=== PATIENT | female | born 1945 | race Caucasian/White ===

== ENCOUNTER 2020-11-09 08:35 | Outpatient (REF) | payer MEDICARE, SELFPAY ==
[2020-11-09 09:58] LABS: Alanine Aminotransferase 24 U/L (0-31); Albumin Level 4.4 g/dL (3.5-5.0); Alkaline Phosphatase 83 U/L (39-117); Aspartate Amino Transferase 23 U/L (5-31); Bilirubin Direct 0.4 mg/dL (0.0-0.5); Bilirubin Total 0.8 mg/dL (0.0-1.0); Cholesterol 125 mg/dL; HDL Cholesterol 61 mg/dL; LDL Cholesterol Calculated 53 mg/dl; Triglycerides 57 mg/dL
[2020-11-09 10:12] LABS: Reflex LDLD? No
[2020-11-09 10:19] LABS: Thyroid Stimulating Hormone 1.26 uIU/mL (0.32-4.0)
== END 2020-11-09 08:36 | disposition home or self-care (01) ==
LOC: HO.LAB 08:35
PROVIDERS: Visit Provider Internal Medicine
DX: E05.00 Thyrotoxicosis with diffuse goiter without thyrotoxic crisis or storm (principal); I25.10 Atherosclerotic heart disease of native coronary artery without angina pectoris
CPT/HCPCS: 36415; 80061; 80076; 84443

== ENCOUNTER 2020-12-08 08:49 | Outpatient (REF) | payer MEDICARE, BC, SELFPAY ==
--- NOTE | 2020-12-14 11:55 | MHC.AU.P13 ---
Adult Audiological Evaluation Date of Visit: 12/08/20 Psychiatric Security Nurse Used: Not Applicable Reason for Appointment: Audiologic re-evaluation due to perceived change in hearing ability. 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 Sales And Storage Manager: O[employer]on Model: Dual W RITE Battery Size: 10 Warranty: Dispensed By: [facility] Date of Fittin01/24/2010 Otoscopy: Right Ear: Unremarkable Left Ear: Unremarkable Tympanometry: Tympanometry performed due to: Right Ear: Not performed at today's visit Left Ear: Not performed at today's visit Hearing Evaluation: Transducer(s) Used: Insert Earphones Method: Conventional Audiometry Stimuli Used: Pure Tones Right Ear: Description of Hearing: Moderate to severe sensorineural hearing loss Left Ear: Description of Hearing: Moderate to severe sensorineural hearing loss Speech Recognition Threshold (SRT): Method Used: Monitored Live Voice Stimuli Used: Spondee Words Right Ear: 50 dB HL Left Ear: 55 dB HL Word Discrimination: Method: Monitored Live Voice Word Lists Used: NU-6 Right Ear: 92% at 80 dB HL Left Ear: 88% at 85 dB HL QuickSIN: Binaural Quick SIN Test score is 2 dB SNR Loss suggesting Marielle does not experience any more difficulty understanding speech in noise than expected Comparison: Compared to most recent evaluation: Compared to January 2019, the low frequency thresholds have decreased 5-10 dB HL Recommendations: Audiological re-evaluation in one year. Trial with amplification is recommended. Medical clearance from a physician is required before fitting. Hearing Aid Fitting will be scheduled when all materials arrive. See Hearing Aid Evaluation report for more information. Diagnosis: Primary Diagnosis: H90.3 Bilateral Sensorineural Hearing Loss Services Performed: Comprehensive Audiological Evaluation (CPT 86243) Signature: Provider: Willa Payton, [facility]
--- NOTE | 2020-12-14 12:08 | MHC.AU.MED ---
Medical Clearance for Hearing Instrumentation Date: 12/14/20 Patient Name: Marielle Valdivia Date of : 1945 Primary Care Provider: Referring Provider: William Najera MD We have seen your patient on 12/08/20 and have determined that they are a candidate for amplification (See accompanying report). Specifically, they would benefit from: Hearing aid use in both ears There is a statute that addresses Medical Evaluation Requirements prior to fitting a patient with a hearing aid. According to [place] statute 265 CMR:6.03(1), (a) General. Except as provided in 265 CMR 6.03(1)(b), a editor continuity and script shall not sell a hearing aid unless the prospective user has presented to the editor continuity and script a written statement signed by a licensed physician that states that the patient's hearing loss has been medically evaluated and the patient may be considered a candidate for a hearing aid. The medical evaluation must have taken place within the preceding six months. Please note: Due to the [place] Statute referenced above, we cannot accept a signature other than that of a licensed physician. EQUALIZING SAW OPERATOR and PA signatures cannot be accepted. I am in agreement with the above recommendation. There is no medical contraindication for hearing instrumentation. Physician Signature Date Physician Name (Printed)
== END 2020-12-08 08:50 | disposition home or self-care (01) ==
LOC: HO.SH 08:49
PROVIDERS: Visit Provider Internal Medicine
DX: H90.3 Sensorineural hearing loss, bilateral (principal)
CPT/HCPCS: 92557

== ENCOUNTER 2021-01-31 10:07 | Outpatient (REF) | payer MEDICARE, BC, SELFPAY ==
--- NOTE | ~2021-01-31 | FL_ITS ---
EXAMINATION: XR GI SERIES CLINICAL INFORMATION: Gastroesophageal reflux disease COMPARISON: None TECHNIQUE: Upper GI was performed using thin and thick barium and effervescent granules. FINDINGS: FLUOROSCOPY TIME: There is significant gastroesophageal reflux. The esophagus is otherwise unremarkable. No mass, stricture or hernia is seen. There is a small proximal duodenal diverticulum. The stomach and duodenum are otherwise normal-appearing. No fold thickening, mass, ulcer or stricture is seen. DOSE AREA PRODUCT: 5 car per centimeter squared. Total dose 22 mgy. Fluoroscopy time 0.9 minutes. 29 saved fluoroscopic images. FL/FL upper GI series IMPRESSION: Significant gastroesophageal reflux. Small proximal duodenal diverticulum.
== END 2021-01-31 10:08 | disposition home or self-care (01) ==
LOC: HO.XRAY 10:07
PROVIDERS: PCP Internal Medicine; Visit Provider Internal Medicine
DX: K21.00 Gastro-esophageal reflux disease with esophagitis, without bleeding (principal)
CPT/HCPCS: 74240

== ENCOUNTER 2021-02-28 09:57 | Outpatient (REF) | payer MEDICARE, BC, SELFPAY | END 2021-02-28 09:58 | disposition home or self-care (01) | LOC: HO.HAP 09:57 | PROVIDERS: Visit Provider Internal Medicine | DX: Z46.1 Encounter for fitting and adjustment of hearing aid (principal); H90.3 Sensorineural hearing loss, bilateral | CPT/HCPCS: 92591; V5261; V5299 ==

== ENCOUNTER 2021-03-17 09:55 | Outpatient (REF) | payer MEDICARE, BC, SELFPAY | END 2021-03-17 09:56 | disposition home or self-care (01) | LOC: HO.HAP 09:55 | PROVIDERS: Visit Provider Internal Medicine | DX: Z13.89 Encounter for screening for other disorder (principal) ==

== ENCOUNTER 2021-03-31 09:55 | Outpatient (REF) | payer SELFPAY | END 2021-03-31 09:56 | disposition home or self-care (01) | LOC: HO.HAP 09:55 | PROVIDERS: Visit Provider Internal Medicine | DX: Z13.89 Encounter for screening for other disorder (principal) ==

== ENCOUNTER 2021-04-26 12:33 | Outpatient (REF) | payer SELFPAY | END 2021-04-26 12:34 | disposition home or self-care (01) | LOC: HO.HAP 12:33 | PROVIDERS: Visit Provider Internal Medicine | DX: Z13.89 Encounter for screening for other disorder (principal) ==

== ENCOUNTER 2021-05-16 10:22 | Outpatient (REF) | payer MEDICARE, SELFPAY ==
[2021-05-16 10:26] LABS: MANUAL DIFF FLAG NO
[2021-05-16 10:38] LABS: Basophils Percent Auto 0.3 % (0-2); Eosinophils Absolute Auto 0.3 X10*3/uL (0.0-0.4); Eosinophils Percent Auto 3.1 % (0-4); Hematocrit 36.9 % (37-47); Imm Gran Abs Auto 0.02 X10*3/uL (0.00-0.03); Imm Gran Pct Auto 0.2 % (0.0-0.4); Lymphocytes Absolute Auto 1.4 X10*3/uL (1.2-4.9); Lymphocytes Percent Auto 15.6 % (20-40); Mean Corpuscular HGB Conc 32.5 g/dl (31.0-35.0); Mean Corpuscular Hemoglobin 28.8 pg (27.0-33.0); Mean Corpuscular Volume 88.5 fL (80-98); Mean Platelet Volume 10.1 fL (9.4-12.3); Monocytes Absolute Auto 0.8 X10*3/uL (0.1-1.2); Monocytes Percent Auto 8.8 % (2-11); Neutrophils Absolute Auto 6.5 X10*3/uL (2.0-8.3); Platelet Count 237 X10*3/uL (160-400); Red Blood Count 4.17 X10*6/uL (4.20-5.50); Red Cell Distribution Width 13.3 % (11.0-16.0)
[2021-05-16 11:09] LABS: Glucose Urine UA NEG (NEG); Leukocyte Esterase Urine 2+ (NEG); Nitrite Urine NEG (NEG); Specific Gravity - Urine 1.015 (1.005-1.025); Urine Blood TRACE (NEG); Urine Ketones NEG (NEG); Urine Protein NEG (NEG-TRACE)
[2021-05-16 11:10] LABS: Alanine Aminotransferase 8 U/L (0-31); Albumin Level 4.1 g/dL (3.5-5.0); Alkaline Phosphatase 107 U/L (39-117); Anion Gap 14 (12-20); Aspartate Amino Transferase 15 U/L (5-31); Bilirubin Total 1.2 mg/dL (0.0-1.0); Blood Urea Nitrogen 17 mg/dL (9-16); Calcium 9.5 mg/dL (8.4-10.2); Carbon Dioxide 26 mmol/L (22-29); Chloride 107 mmol/L (96-108); Cholesterol 118 mg/dL; Estimated Glomerular Filt Rate > 60; Glucose Fasting 95 mg/dL (60-99); HDL Cholesterol 64 mg/dL; LDL Cholesterol Calculated 46 mg/dl; Potassium 3.9 mmol/L (3.3-5.1); Sodium 143 mmol/L (135-145); Total Protein 7.1 g/dL (6.5-8.0); Triglycerides 41 mg/dL
[2021-05-16 11:12] LABS: Appearance Urine CLEAR; Color Urine YELLOW
[2021-05-16 11:25] LABS: TSH reflex Free T4 0.13 uIU/mL (0.32-4.0); Vitamin D 25-OH Total 38.7 ng/mL (>30)
[2021-05-16 11:28] LABS: Reflex LDLD? No
[2021-05-16 11:48] LABS: Bacteria Urine TRACE /LPF; RBC Urine 0-2 /HPF (0); Renal Epithelial Cells Urine TRACE /LPF; Squamous Epithelial Cell Urine TRACE /LPF
[2021-05-16 12:07] LABS: Free T4 (Free Thyroxine) 1.13 ng/dL (0.71-1.85)
== END 2021-05-16 10:23 | disposition home or self-care (01) ==
LOC: HO.LNP 10:22
PROVIDERS: Visit Provider Internal Medicine
DX: E05.00 Thyrotoxicosis with diffuse goiter without thyrotoxic crisis or storm (principal); I10 Essential (primary) hypertension; D72.820 Lymphocytosis (symptomatic); D64.9 Anemia, unspecified; I25.10 Atherosclerotic heart disease of native coronary artery without angina pectoris
CPT/HCPCS: 80053; 80061; 81001; 81003; 82306; 84439; 84443; 85025

== ENCOUNTER 2021-05-20 12:24 | Outpatient (REF) | payer MEDICARE, BC, SELFPAY | END 2021-05-20 12:25 | disposition home or self-care (01) | LOC: HO.LNP 12:24 | PROVIDERS: Visit Provider Internal Medicine | DX: N30.00 Acute cystitis without hematuria (principal) | CPT/HCPCS: 87086 ==

== ENCOUNTER 2021-07-19 09:58 | Outpatient (REF) | payer MEDICARE, BC, SELFPAY ==
--- NOTE | ~2021-07-19 | MM_ITS ---
EXAMINATION: MM SCREENING DIGITAL BREAST TOMOSYNTHESIS, BILATERAL CLINICAL INFORMATION: Screening. Asymptomatic. The lifetime risk of breast cancer based on the Tyrer-Cuzick Model is 2.1%. COMPARISON: Mammography: July 13, 2020 and studies dating back to January 14, 2014 TECHNIQUE: Digital breast tomosynthesis is performed in both the craniocaudal and mediolateral oblique views along with computer-aided detection (CAD). Synthesized 2D images are generated from the tomosynthesis. FINDINGS: The breasts are heterogeneously dense, which may obscure small masses (ACR BI-RADS breast composition Category c). There are no significant masses, abnormal calcifications, or other abnormalities. MM/MM tomosynthesis screening BI IMPRESSION: There are no significant changes from prior study. ASSESSMENT: BI-RADS 1: Negative RECOMMENDATION: Routine annual mammography screening. This patient's information was entered into a reminder system with a target due date for their next mammogram.
== END 2021-07-19 09:59 | disposition home or self-care (01) ==
LOC: HO.MAMMO 09:58
PROVIDERS: PCP Internal Medicine; Visit Provider Internal Medicine
DX: Z12.31 Encounter for screening mammogram for malignant neoplasm of breast (principal)
CPT/HCPCS: 77063; 77067

== ENCOUNTER 2021-12-14 13:41 | Outpatient (REF) | payer MEDICARE, OTHER, SELFPAY ==
--- NOTE | ~2021-12-14 | CT_ITS ---
EXAMINATION: CT CHEST WITHOUT CONTRAST CLINICAL INFORMATION: Bronchiectasis without complication. COMPARISON: No recent CT chest. CT chest 09/15/2014. TECHNIQUE: Multidetector volumetric CT imaging of the chest was done. Axial MIP volume rendering provided. Sagittal and coronal reformatted images were obtained. This CT examination was performed using dose optimization techniques as appropriate, variously including the following: *Automated exposure control *Adjustment of mA and/or kV according to patient size (this includes techniques or standardized protocols for targeted exams where dose is matched to indication/reason for exam; i.e. extremities or head) *Use of iterative reconstruction technique DLP: 106 mGy-cm FINDINGS: COMPUTER SCIENCES PROFESSOR: Well-inflated lungs. LUNGS: The lungs are well-expanded with bronchiectasis involving the right middle lobe and right lower lobe. There are right middle lobe atelectatic changes with air space disease likely infiltrate and/or atelectasis. The lungs are hyperinflated with centrilobular emphysematous changes. No large pulmonary nodule or groundglass density seen. There is left upper lobe anterior segment focal atelectasis. MEDIASTINUM: The thyroid lobes are symmetrical and normal. The central trachea and the bronchi widely patent. Heart size and the great vessels are normal caliber. There are small shotty lymph nodes in the precarinal and pretracheal space. There are coronary artery calcium quantification is present. Trace pericardial effusion seen. PLEURA: There is no pleural effusion. No pleural mass or thickening. AXILLA: There are small shotty lymph nodes in the axilla. The chest wall is unremarkable. UPPER ABDOMEN: Visualized liver, spleen, pancreas and bilateral adrenal glands are unremarkable. There is punctate radiopaque stone midpole right kidney. OSSEOUS STRUCTURES: No lytic or sclerotic process seen. There is mild ventral spondylosis mid and lower dorsal spine. There is exaggerated thoracic kyphosis. CT/CT chest wo con IMPRESSION: 1. Right middle lobe and right lower lobe bronchiectasis with right middle lobe consolidation/atelectasis. There is diffuse centrilobular emphysema. 2. Focal atelectatic changes left upper lobe anterior segment. 3. Exaggerated thoracic kyphosis. Fleischner guidelines were followed.
== END 2021-12-14 13:42 | disposition home or self-care (01) ==
LOC: HO.CT 13:41
PROVIDERS: PCP Internal Medicine; Visit Provider Internal Medicine
DX: J47.9 Bronchiectasis, uncomplicated (principal)
CPT/HCPCS: 71250

== ENCOUNTER 2022-05-16 11:03 | Outpatient (REF) | payer MEDICARE, OTHER, SELFPAY ==
[2022-05-16 11:08] LABS: MANUAL DIFF FLAG NO
[2022-05-16 12:13] LABS: Basophils Percent Auto 0.7 % (0-2); Eosinophils Absolute Auto 0.2 X10*3/uL (0.0-0.4); Eosinophils Percent Auto 3.3 % (0-4); Hematocrit 35.8 % (37.0-47.0); Hemoglobin 11.5 g/dl (12.0-16.0); Imm Gran Abs Auto 0.01 X10*3/uL (0.00-0.03); Imm Gran Pct Auto 0.2 % (0.0-0.4); Lymphocytes Absolute Auto 1.5 X10*3/uL (1.2-4.9); Lymphocytes Percent Auto 25.1 % (20-40); Mean Corpuscular HGB Conc 32.1 g/dl (31.0-35.0); Mean Corpuscular Hemoglobin 27.8 pg (27.0-33.0); Mean Corpuscular Volume 86.5 fL (80.0-98.0); Mean Platelet Volume 10.4 fL (9.4-12.3); Monocytes Absolute Auto 0.5 X10*3/uL (0.1-1.2); Monocytes Percent Auto 8.7 % (2-11); Neutrophils Absolute Auto 3.8 x10*3/uL (2.0-8.3); Platelet Count 271 X10*3/uL (160-400); Red Blood Count 4.14 X10*6/uL (4.20-5.50); Red Cell Distribution Width 13.3 % (11.0-16.0); White Blood Count 6.1 X10*3/uL (4.8-10.8)
[2022-05-16 12:20] LABS: Alanine Aminotransferase 13 U/L (0-31); Alkaline Phosphatase 129 U/L (39-117); Anion Gap 12 (12-20); Aspartate Amino Transferase 17 U/L (5-31); Bilirubin Total 0.7 mg/dL (0.0-1.0); Blood Urea Nitrogen 16 mg/dL (9-16); Calcium 9.2 mg/dL (8.4-10.2); Carbon Dioxide 26 mmol/L (22-29); Chloride 108 mmol/L (96-108); Cholesterol 114 mg/dL; Estimated Glomerular Filt Rate > 60; Glucose Fasting 96 mg/dL (60-99); HDL Cholesterol 51 mg/dL; LDL Cholesterol Calculated 49 mg/dl; Sodium 142 mmol/L (135-145); Total Protein 7.3 g/dL (6.5-8.0); Triglycerides 72 mg/dL
[2022-05-16 12:21] LABS: Appearance Urine CLEAR; Color Urine YELLOW; Glucose Urine UA NEG (NEG); Leukocyte Esterase Urine 2+ (NEG); Nitrite Urine NEG (NEG); Urine Blood NEG (NEG); Urine Ketones NEG (NEG); Urine Protein NEG (NEG-TRACE)
[2022-05-16 12:42] LABS: TSH reflex Free T4 < 0.01 uIU/mL (0.32-4.0); Vitamin D 25-OH Total 47.1 ng/mL (>30)
[2022-05-16 13:16] LABS: Free T4 (Free Thyroxine) 1.53 ng/dL (0.71-1.85)
[2022-05-16 13:18] LABS: Renal Epithelial Cells Urine 1+ /LPF; Squamous Epithelial Cell Urine 1+ /LPF
[2022-05-16 13:19] LABS: Bacteria Urine TRACE /LPF; RBC Urine 0-2 /HPF (0)
== END 2022-05-16 11:04 | disposition home or self-care (01) ==
LOC: HO.LNP 11:03
PROVIDERS: Visit Provider Internal Medicine
DX: D64.9 Anemia, unspecified (principal); E05.00 Thyrotoxicosis with diffuse goiter without thyrotoxic crisis or storm; I10 Essential (primary) hypertension; I70.90 Unspecified atherosclerosis; D72.820 Lymphocytosis (symptomatic)
CPT/HCPCS: 80053; 80061; 81001; 82306; 84439; 84443; 85025

== ENCOUNTER 2022-07-21 09:26 | Outpatient (REF) | payer MEDICARE, OTHER, SELFPAY ==
--- NOTE | ~2022-07-21 | MM_ITS ---
EXAMINATION: MM SCREENING DIGITAL BREAST TOMOSYNTHESIS, BILATERAL CLINICAL INFORMATION: Screening. Asymptomatic. The lifetime risk of breast cancer based on the Tyrer-Cuzick Model is 3%. COMPARISON: Mammography: 07/19/2021, 07/13/2020, 07/08/2019 TECHNIQUE: Digital breast tomosynthesis is performed in both the craniocaudal and mediolateral oblique views along with computer-aided detection (CAD). Synthesized 2D images are generated from the tomosynthesis. Additional exaggerated right CC view is provided. FINDINGS: There are scattered areas of fibroglandular density (ACR BI-RADS breast composition Category b). There are no significant masses, abnormal calcifications, or other abnormalities. Parenchymal pattern is similar to prior studies. No developing density or interval architectural abnormality. The axilla and skin contours are unremarkable. MM/MM tomosynthesis screening BI IMPRESSION: No mammographic evidence of malignancy. ASSESSMENT: BI-RADS 1: Negative RECOMMENDATION: Routine annual mammography screening. This patient's information was entered into a reminder system with a target due date for their next mammogram.
== END 2022-07-21 09:27 | disposition home or self-care (01) ==
LOC: HO.MAMMO 09:26
PROVIDERS: PCP Internal Medicine; Visit Provider Internal Medicine
DX: Z12.31 Encounter for screening mammogram for malignant neoplasm of breast (principal)
CPT/HCPCS: 77063; 77067

== ENCOUNTER 2022-08-24 08:45 | Outpatient (REF) | payer MEDICARE, OTHER, SELFPAY ==
--- NOTE | ~2022-08-24 | US_ITS ---
EXAMINATION: US THYROID CLINICAL INFORMATION: Nontoxic single thyroid nodule. COMPARISON: Thyroid ultrasound 08/07/2014. TECHNIQUE: Linear transducer grayscale and color Doppler examination with attention to the region of the thyroid. FINDINGS: SIZE: Measurements of the thyroid lobes and nodules are given in sagittal, anteroposterior and transverse dimensions respectively. Right Thyroid Lobe: 5.4 x 1.6 x 2.0 cm, volume 9.0 mL. Previously 5.8 x 2.3 x 2.2 cm, volume 15.3 mL. Parenchyma: The gland echotexture is heterogeneous. Thyroid vascularity is increased. Left Thyroid Lobe: 5.0 x 1.9 x 1.5 cm, volume 7.5 mL. Previously 5.4 x 2.2 x 2.4 cm, volume 14.9 mL. Parenchyma: The gland echotexture is heterogeneous. Thyroid vascularity is increased. Isthmus: 0.2 cm in maximum AP dimension. Previously 0.2 cm. Estimated total number of nodules greater than or equal to 1 cm: 0. Drug Enforcement Agent nodules are described as follows: NODES: There are small bilateral cervical lymph nodes. US/US thyroid IMPRESSION: Upper normal-size heterogeneous hypervascular thyroid gland. ACR TI-RADS RECOMMENDATION REFERENCE: Ultrasound-guided fine-needle aspiration, followup ultrasound, no further follow up. * TR1 (0 point) and TR 2 (2 points): No FNA or follow up * TR3 (3 points): FNA if more than or equal to 2.5 cm in maximum dimension, followup ultrasound in 1, 3 and 5 years if 1.5 to 2.4 cm in maximum dimension. * TR4 (4-6 points): FNA if more than or equal to 1.5 cm in maximum dimension, followup ultrasound in 1, 2, 3 and 5 years if 1 to 1.4 cm in maximum dimension. * TR5 (more than or equal to 7 points): FNA if more than or equal to 1 cm in maximum dimension, followup ultrasound every year for 5 years if 0.5 to 0.9 cm in maximum dimension. * TR3, TR4 or TR5 nodules that are below the size threshold for follow up receive no follow up.
== END 2022-08-24 08:46 | disposition home or self-care (01) ==
LOC: HO.US 08:45
PROVIDERS: Visit Provider Internal Medicine
DX: E04.1 Nontoxic single thyroid nodule (principal)
CPT/HCPCS: 76536

== ENCOUNTER 2022-10-24 10:22 | Outpatient (REF) | payer MEDICARE, OTHER, SELFPAY | END 2022-10-24 10:23 | disposition home or self-care (01) | LOC: HO.SH 10:22 | PROVIDERS: Visit Provider Internal Medicine | DX: Z01.118 Encounter for examination of ears and hearing with other abnormal findings (principal); H90.3 Sensorineural hearing loss, bilateral | CPT/HCPCS: 92557; 92567 ==

== ENCOUNTER 2022-11-23 10:41 | Outpatient (REF) | payer MEDICARE, OTHER, SELFPAY ==
[2022-11-23 11:12] LABS: Alanine Aminotransferase 15 U/L (0-31); Albumin Level 4.1 g/dL (3.5-5.0); Alkaline Phosphatase 127 U/L (39-117); Aspartate Amino Transferase 24 U/L (5-31); Bilirubin Direct 0.2 mg/dL (0.0-0.5); Bilirubin Total 0.5 mg/dL (0.0-1.0); Cholesterol 133 mg/dL; HDL Cholesterol 49 mg/dL; LDL Cholesterol Calculated 68 mg/dl; Total Protein 7.2 g/dL (6.5-8.0); Triglycerides 80 mg/dL
[2022-11-23 12:29] LABS: Reflex LDLD? No
== END 2022-11-23 10:42 | disposition home or self-care (01) ==
LOC: HO.LNP 10:41
PROVIDERS: Visit Provider Internal Medicine
DX: I25.10 Atherosclerotic heart disease of native coronary artery without angina pectoris (principal)
CPT/HCPCS: 80061; 80076

== ENCOUNTER 2023-01-11 16:06 | Outpatient (REF) | payer MEDICARE, OTHER, SELFPAY ==
[2023-01-11 16:09] LABS: MANUAL DIFF FLAG NO
[2023-01-11 16:32] LABS: Basophils Percent Auto 0.6 % (0-2); Eosinophils Absolute Auto 0.1 X10*3/uL (0.0-0.4); Eosinophils Percent Auto 1.6 % (0-4); Imm Gran Abs Auto 0.02 X10*3/uL (0.00-0.03); Imm Gran Pct Auto 0.3 % (0.0-0.4); Lymphocytes Absolute Auto 1.2 X10*3/uL (1.2-4.9); Lymphocytes Percent Auto 16.8 % (20-40); Mean Corpuscular HGB Conc 28.9 g/dl (31.0-35.0); Mean Corpuscular Hemoglobin 20.4 pg (27.0-33.0); Mean Corpuscular Volume 70.6 fL (80.0-98.0); Mean Platelet Volume 10.2 fL (9.4-12.3); Monocytes Absolute Auto 0.6 X10*3/uL (0.1-1.2); Neutrophils Absolute Auto 5.1 x10*3/uL (2.0-8.3); Neutrophils Percent Auto 72.7 % (45-73); Platelet Count 331 X10*3/uL (160-400); Red Blood Count 2.69 X10*6/uL (4.20-5.50); Red Cell Distribution Width 15.9 % (11.0-16.0)
[2023-01-11 16:44] LABS: TSH reflex Free T4 0.49 uIU/mL (0.32-4.0)
[2023-01-11 16:57] LABS: Hemoglobin 5.5 g/dl (12.0-16.0)
== END 2023-01-11 16:07 | disposition home or self-care (01) ==
LOC: HO.LNP 16:06
PROVIDERS: Visit Provider Internal Medicine
DX: Z13.89 Encounter for screening for other disorder (principal)
CPT/HCPCS: 84443; 85025

== ENCOUNTER 2023-01-11 17:35 | Emergency (ER) | payer MEDICARE, OTHER, SELFPAY ==
[2023-01-11] VITALS (8 sets, daily range): BP systolic 148–169; BP diastolic 54–79; PULSE 67–105; RESP 13–22; TEMP 36.6–36.9; O2SAT 99–100; BMI 25.4
--- NOTE | ~2023-01-11 | CT_ITS ---
EXAMINATION CT ABDOMEN AND PELVIS WITHOUT AND WITH CONTRAST CLINICAL INFORMATION: GI bleeding. Severe anemia. COMPARISON: CT abdomen/pelvis dated 12/29/2018 TECHNIQUE: Multidetector volumetric CT imaging of the abdomen and pelvis was obtained before after the administration of 80 mL Omnipaque 350 intravenous contrast without immediate adverse reactions. Postcontrast images were acquired during the late arterial and 3 min delayed phases. Coronal and sagittal reformats were reviewed. This CT examination was performed using dose optimization techniques as appropriate, variously including the following: *Automated exposure control *Adjustment of mA and/or kV according to patient size (this includes techniques or standardized protocols for targeted exams where dose is matched to indication/reason for exam; i.e. 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 Pleural parenchymal scarring redemonstrated lateral basal segment of left lower lobe. Mild cardiomegaly. Coronary calcifications present. Anemia is evident. HEPATOBILIARY: Liver normal in size, contour and morphology. No suspicious lesions. No intra or extrahepatic biliary dilation. Cholelithiasis. PANCREAS: No pancreatic mass or inflammation. Diffuse smooth mild dilatation of the pancreatic duct is similar to prior. SPLEEN: Unremarkable. ADRENAL GLANDS: Unremarkable. KIDNEYS, URETERS AND BLADDER: Kidneys are normal in size, axis and morphology is symmetric uptake of contrast bilaterally. There our bilateral punctate nonobstructive intrarenal calculi numbering at least 3 within the each kidney. There is mild bilateral pelvocaliectasis and minimal prominence of the bilateral ureters likely related to the distended bladder. No ureteral calculi. No perinephric abnormalities. GASTROINTESTINAL TRACT: No intestinal obstruction or inflammation. No source of active gastrointestinal bleeding is identified. Small sliding-type hiatal hernia. Normal appendix. LYMPH NODES: No lymphadenopathy. PERITONEUM/BODY WALL: Unremarkable. VASCULAR STRUCTURES: Aorta is atherosclerotic but normal caliber. Patent vascular structures. OSSEOUS STRUCTURES: No acute or suspicious osseous abnormalities. Bilateral total hip arthroplasties. CT/CT gi bleed abd pel wo/w IVcon IMPRESSION: * No source of active gastrointestinal bleeding is identified. * Cholelithiasis. * Bilateral punctate nonobstructive intrarenal calculi. * Mild bilateral renal pelvocaliectasis likely related to a distended bladder. 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
--- NOTE | 2023-01-11 18:33 | ED.GENADULT ---
HPI - General Adult General Chief complaint: Recheck/Abnormal Lab/Rx Stated complaint: abnormal labs stated needs a transfusion Time Seen by Provider: 01/11/23 18:23 Source: patient Mode of arrival: ambulatory History of Present Illness HPI narrative: Patient with no significant GI complaints in the past had last colonoscopy 10 years ago showed diverticulosis without diverticulitis no history of GI bleed been feeling weak exhausted shortness of breath on ambulation last 2 3 weeks seen by PCP today who ordered the labs which showed hemoglobin of 5.5 hematocrit 19 hence patient came to the ER for blood transfusion a month ago patient had bowel movement with bright red blood none after that. Previous lab in 05/26 showed hemoglobin of 11.5 no history of blood transfusion in the past no history of iron deficiency anemia patient denies any significant abdominal pain no melena no gastritis symptoms patient not on any blood thinners or NSAIDs Related Data Previous Rx's Medication Instructions Recorded ferrous sulfate 325 mg (65 mg 325 mg PO DAILY #90 tabs 01/12/23 iron) tablet pantoprazole 40 mg granules 40 mg PO DAILY #30 ea 01/12/23 delayed-release for susp in packet (Protonix) Allergies Allergy/AdvReac Type Severity Reaction Status Date / Time sulfamethoxazole AdvReac Diarrhea Verified 01/11/23 17:41 [From Bactrim] trimethoprim [From Bactrim] AdvReac Diarrhea Verified 01/11/23 17:41 Review of Systems Review of Systems: Yes all other systems are reviewed and are negative [facility] Social History Social History Alcohol intake: current Alcohol intake frequency: a few times a month Alcohol type: wine and hard liquor Smoked in Last 30 Days: No Use of substances other than those prescribed or required for medical reasons: No Advance Directives: No Advance Directives Information Provided: No Physical Exam ED Vital Signs: Vital Signs - 24 hr 01/11/23 17:36 01/11/23 20:35 01/11/23 20:48 Temperature 97.8 F 98.1 F 98.5 F Pulse Rate 105 H 90 70 Respiratory Rate 20 18 22 H Blood Pressure 168/64 H 160/54 H 148/76 H Pulse Oximetry 100 100 Oxygen Delivery Method Room Air Room Air 01/11/23 21:11 01/11/23 22:09 01/11/23 23:06 Temperature 98.4 F 98.3 F Pulse Rate 67 71 73 Respiratory Rate 20 13 18 Blood Pressure 157/68 H 149/77 H 167/76 H Pulse Oximetry 99 Oxygen Delivery Method Room Air 01/11/23 23:02 01/11/23 23:21 01/12/23 00:47 Temperature 98.1 F 98.3 F 98.3 F Pulse Rate 77 72 66 Respiratory Rate 18 18 18 Blood Pressure 161/79 H 169/70 H 155/80 H Pulse Oximetry Oxygen Delivery Method 01/12/23 00:50 Temperature Pulse Rate Respiratory Rate Blood Pressure Pulse Oximetry 100 Oxygen Delivery Method Room Air BMI result Body Mass Index 25.4 Appearance: Alert. Oriented X3. No acute distress. Eyes: pallor++ ENT: Pharynx normal. Oral Mucosa moist Neck: Normal inspection. Neck supple. CVS: Normal heart rate and rhythm. Pulses normal. Respiratory: No respiratory distress. Equal air entry bilateral, no wheezing/rales/rhonchi Abdomen: Soft and nontender. Bowel sounds are present, no mass palpable, no CVA tenderness rectal: Dark stool guaiac +ve Skin: Skin warm and dry. Normal skin color. Normal skin turgor. Extremities: No lower extremity edema. No calf tenderness Neuro: Oriented X 3. No motor deficit. No sensory deficit.No cerebellar signs , cranial nerves II-XII intact Medications Administered Discontinued Medications Generic Name Dose Route Start Last Admin Trade Name Freq PRN Reason Stop Dose Admin Famotidine 20 mg 01/11/23 22:55 01/11/23 23:01 Famotidine/Pf 20 Mg/2 Ml Vial IVPUSH 01/11/23 22:56 20 mg ONCE ONE Administration Ferrous Sulfate 324 mg 01/11/23 22:56 01/11/23 23:01 Ferrous Sulfate 324 Mg Tablet.Dr PO 01/11/23 22:57 324 mg ONCE ONE Administration Furosemide 20 mg 01/11/23 22:55 01/11/23 23:01 Furosemide 20 Mg/2 Ml Vial IVPUSH 01/11/23 22:56 20 mg ONCE ONE Administration Protocol Iohexol 80 ml 01/11/23 23:55 01/11/23 23:55 Iohexol 350 Mg/Ml 100 Ml Infus..Btl IV 01/11/23 23:56 80 ml ONCE ONE Administration Medical Decision Making Medical Decision Making MDM Narrative: Patient is severely anemic symptomatic with weakness and shortness of breath on exertion abdomen soft history of diverticulosis chemistry showed iron deficiency anemia. Will give p.o. iron, 2 units of blood transfusion CT abdomen to rule out diverticular bleed Patient's GI bleed scan of the abdomen negative for acute . Patient feeling much better ambulatory in the ER repeat H&H 8.4/27.5 patient denied any shortness of breath no weakness does not want to stay in the hospital at this time has a follow-up plan with Dr. Nielsen colonoscopy patient is well educated and aware of the risk aware that she should come back to the ER if any rectal bleed. Will discharge patient home on iron tablets and PPI Lab Data [facility] Lab Attestation statement: I reviewed the patient's lab results. 01/11/23 19:12 Labs: Lab Results 01/11/23 01/11/23 01/11/23 Range/Units 19:12 19:12 19:12 Hgb (12.0-16.0) g/dl Hct (37.0-47.0) % PT 11.6 (10.0-13.1) SEC INR 1.0 (0.9-1.1) Sodium 144 (135-145) mmol/L Potassium 4.0 (3.3-5.1) mmol/L Chloride 111 H (96-108) mmol/L Carbon Dioxide 24 (22-29) mmol/L Anion Gap 13 (12-20) BUN 20 H (9-16) mg/dL Creatinine 0.81 (0.5-1.4) mg/dL Estim Creat Clear Calc 55.6 Estimated GFR > 60 Random Glucose 95 (60-115) mg/dL Calcium 8.7 (8.4-10.2) mg/dL Iron 8 L (30-160) mcg/dL TIBC 382 (228-428) mcg/dL % Saturation 2 L (15-50) % Unsat Iron Binding 374 ug/dL Total Bilirubin 0.4 (0.0-1.0) mg/dL AST 19 (5-31) U/L ALT 13 (0-31) U/L Alkaline Phosphatase 117 (39-117) U/L Total Protein 6.8 (6.5-8.0) g/dL Albumin 4.0 (3.5-5.0) g/dL Urine Color Urine Appearance Urine pH (5.0-9.0) Ur Specific [place] (1.005-1.025) Urine Protein (Neg-Trace) mg/dL Urine Glucose (UA) (Negative) mg/dL Urine Ketones (Negative) mg/dL Urine Blood (Negative) Urine Nitrite (Negative) Ur Leukocyte Esterase (Negative) Urine RBC (0-2) /HPF Urine WBC (0-5) /HPF Ur Squamous Epith Cells (0-2) /HPF Urine Bacteria (None Seen) Hyaline Casts (0-2) /LPF Stool Occult Blood (NEGATIVE) Blood Type O Positive Antibody Screen NEGATIVE Crossmatch See Detail 01/11/23 01/11/23 01/12/23 Range/Units 19:41 21:10 00:45 Hgb 8.4 L D (12.0-16.0) g/dl Hct 27.5 L D (37.0-47.0) % PT (10.0-13.1) SEC INR (0.9-1.1) Sodium (135-145) mmol/L Potassium (3.3-5.1) mmol/L Chloride (96-108) mmol/L Carbon Dioxide (22-29) mmol/L Anion Gap (12-20) BUN (9-16) mg/dL Creatinine (0.5-1.4) mg/dL Estim Creat Clear Calc Estimated GFR Random Glucose (60-115) mg/dL Calcium (8.4-10.2) mg/dL Iron (30-160) mcg/dL TIBC (228-428) mcg/dL % Saturation (15-50) % Unsat Iron Binding ug/dL Total Bilirubin (0.0-1.0) mg/dL AST (5-31) U/L ALT (0-31) U/L Alkaline Phosphatase (39-117) U/L Total Protein (6.5-8.0) g/dL Albumin (3.5-5.0) g/dL Urine Color Yellow Urine Appearance Clear Urine pH 5.5 (5.0-9.0) Ur Specific [place] 1.025 (1.005-1.025) Urine Protein Trace (Neg-Trace) mg/dL Urine Glucose (UA) Negative (Negative) mg/dL Urine Ketones Trace (Negative) mg/dL Urine Blood Negative (Negative) Urine Nitrite Negative (Negative) Ur Leukocyte Esterase Small (1+) H (Negative) Urine RBC 0-2 (0-2) /HPF Urine WBC 11-20 H (0-5) /HPF Ur Squamous Epith Cells 0-2 (0-2) /HPF Urine Bacteria None Seen (None Seen) Hyaline Casts 0-2 (0-2) /LPF Stool Occult Blood POSITIVE (NEGATIVE) Blood Type Antibody Screen Crossmatch Discharge Plan Discharge Clinical Impression: Severe anemia, GI bleed Patient Disposition: Home, Self-Care Instructions: Gastrointestinal Bleeding (ED), Iron Deficiency Anemia (ED) Additional Instructions: Take iron pills as advised See associate professor of counseling next week for colonoscopy See your PCP in 3 days to recheck her blood Report to the ER if any rectal bleed Prescriptions: New ferrous sulfate 325 mg (65 mg iron) tablet 325 mg PO DAILY Qty: 90 0RF pantoprazole [Protonix] [address] for susp in packet 40 mg PO DAILY Qty: 30 0RF Referrals: Byron Nielsen [Physician] - 3 days
[2023-01-11 19:35] LABS: Prothrombin Time 11.6 SEC (10.0-13.1)
[2023-01-11 19:49] LABS: Alanine Aminotransferase 13 U/L (0-31); Alkaline Phosphatase 117 U/L (39-117); Anion Gap 13 (12-20); Aspartate Amino Transferase 19 U/L (5-31); Bilirubin Total 0.4 mg/dL (0.0-1.0); Blood Urea Nitrogen 20 mg/dL (9-16); Calcium 8.7 mg/dL (8.4-10.2); Carbon Dioxide 24 mmol/L (22-29); Chloride 111 mmol/L (96-108); Creatinine Clr Calc Pharmacy 55.6; Estimated Glomerular Filt Rate > 60; Glucose Random 95 mg/dL (60-115); Sodium 144 mmol/L (135-145); Total Protein 6.8 g/dL (6.5-8.0)
[2023-01-11 19:59] LABS: Appearance Urine Clear; Color Urine Yellow; Glucose Urine UA Negative (Negative); Leukocyte Esterase Urine Small (1+) (Negative); Nitrite Urine Negative (Negative); PH 5.5 (5.0-9.0); Specific Gravity - Urine 1.025 (1.005-1.025); UMIC TRIGGER UACC YES; Urine Blood Negative (Negative); Urine Ketones Trace mg/dL (Negative); Urine Protein Trace mg/dL (Neg-Trace)
[2023-01-11 20:02] LABS: Bacteria Urine None Seen (None Seen); Hyaline Casts Urine 0-2 /LPF (0-2); RBC Urine 0-2 /HPF (0-2); Squamous Epithelial Cell Urine 0-2 /HPF (0-2); UACC Culture Trigger YES
[2023-01-11 20:09] LABS: Iron 8 mcg/dL (30-160); Percent Iron Saturation 2 % (15-50); Total Iron Binding Capacity 382 mcg/dL (228-428); Unsaturated Iron Binding 374 ug/dL
[2023-01-11 21:22] LABS: OBS Int Ctl Valid YES; OBS1 POSITIVE (NEGATIVE)
[2023-01-11] MEDS: Famotidine/PF 20 MG/2 ML VIAL IVPUSH (23:01)
[2023-01-11] MEDS: Furosemide 20 MG/2 ML VIAL IVPUSH (23:01)
[2023-01-11] MEDS: Ferrous Sulfate 324 MG TABLET.DR PO (23:01)
[2023-01-11] MEDS: iohexoL 350 MG/ML 100 ML INFUS..BTL 80 ML IV (23:55)
[2023-01-12 00:47] VITALS: BP 155/80; PULSE 66; RESP 18; TEMP 36.8
[2023-01-12 00:49] LABS: Hematocrit 27.5 % (37.0-47.0); Hemoglobin 8.4 g/dl (12.0-16.0)
[2023-01-12 00:50] VITALS: O2SAT 100
== END 2023-01-12 02:07 | disposition home or self-care (01) ==
PROVIDERS: Nurse Practitioner Family; Emergency Provider Internal Medicine; PCP Internal Medicine
DX: D50.0 Iron deficiency anemia secondary to blood loss (chronic) (principal); K92.2 Gastrointestinal hemorrhage, unspecified; Z79.899 Other long term (current) drug therapy
CPT/HCPCS: 36415; 36430; 74178; 80053; 81001; 82272; 83540; 84443; 85014; 85018; 85025; 85610; 86850; 86900; 86901; 86923; 87086; 96374; 96375; 99284; 99285; J1940; P9016; Q9967

== ENCOUNTER 2023-01-15 11:26 | Outpatient (REF) | payer MEDICARE, OTHER, SELFPAY ==
[2023-01-15 11:28] LABS: MANUAL DIFF FLAG NO
[2023-01-15 11:53] LABS: Basophils Percent Auto 0.7 % (0-2); Eosinophils Absolute Auto 0.3 X10*3/uL (0.0-0.4); Hematocrit 26.3 % (37.0-47.0); Hemoglobin 7.8 g/dl (12.0-16.0); Imm Gran Abs Auto 0.01 X10*3/uL (0.00-0.03); Imm Gran Pct Auto 0.2 % (0.0-0.4); Lymphocytes Absolute Auto 1.2 X10*3/uL (1.2-4.9); Mean Corpuscular HGB Conc 29.7 g/dl (31.0-35.0); Mean Corpuscular Hemoglobin 22.7 pg (27.0-33.0); Mean Corpuscular Volume 76.7 fL (80.0-98.0); Mean Platelet Volume 9.8 fL (9.4-12.3); Monocytes Absolute Auto 0.7 X10*3/uL (0.1-1.2); Monocytes Percent Auto 10.7 % (2-11); Neutrophils Absolute Auto 3.9 x10*3/uL (2.0-8.3); Neutrophils Percent Auto 64.4 % (45-73); Platelet Count 298 X10*3/uL (160-400); Red Blood Count 3.43 X10*6/uL (4.20-5.50); Red Cell Distribution Width 21.1 % (11.0-16.0); White Blood Count 6.1 X10*3/uL (4.8-10.8)
== END 2023-01-15 11:27 | disposition home or self-care (01) ==
LOC: HO.LNP 11:26
PROVIDERS: Visit Provider Internal Medicine
DX: K92.2 Gastrointestinal hemorrhage, unspecified (principal)
CPT/HCPCS: 85025

== ENCOUNTER 2023-01-25 11:49 | Day surgery (SDC) | payer MEDICARE, OTHER, SELFPAY ==
--- NOTE | 2023-01-24 12:15 | HO.ANESPROP2 ---
Documented by User: Cinthia Deutsch NP 01/24/23 12:19 HPI - Anesthesia Eval Consult details Narrative: 77yo F for Upper Endoscopy and Colonoscopy [facility] 01/12/23 with GIB. s/p 2 units PRBC PMFSH Past Medical History Medical History Bronchiectasis GERD (gastroesophageal reflux disease) Graves disease HLD (hyperlipidemia) Hx of osteoporosis AYALA (iron deficiency anemia) Renal stones Surgical History Surgical History Hx of colonoscopy Hx of esophagogastroduodenoscopy S/P hip replacement S/P partial hysterectomy Social History Social History Alcohol intake: current Alcohol intake frequency: a few times a month Alcohol type: wine and hard liquor Patient Tobacco Use Status: Former Tobacco user Quit Date: 40 yrs ago Use of substances other than those prescribed or required for medical reasons: No Are you DNR?: No Advance Directives: No Advance Directives Information Provided: Yes Meds Allergies Allergy/AdvReac Type Severity Reaction Status Date / Time clarithromycin [From Biaxin] AdvReac Stomach Verified 01/25/23 12:01 Upset Home Medications Medication Instructions Recorded Confirmed Last Taken Type atorvastatin 40 mg tablet 1 tab PO DAILY 01/24/23 01/25/23 Unknown History propylthiouracil 50 mg tablet 1 tab PO Q OTHER DAY 01/24/23 01/25/23 Unknown History Exam Exam Date and Time: January 24, 2023 1215 Pertinent Lab Results Pertinent Lab Results: Laboratory Tests 01/11/23 01/15/23 19:12 09:15 WBC 6.1 Hgb 7.8 L Hct 26.3 L Plt Count 298 Sodium 144 Potassium 4.0 Chloride 111 H Carbon Dioxide 24 BUN 20 H Creatinine 0.81 Assessment and Plan Assessment Anesthesia Assessment: Chart Reviewed Documented by User: Aby Posadas MD 01/25/23 12:40 [facility] Past Medical History Medical History Bronchiectasis GERD (gastroesophageal reflux disease) Graves disease HLD (hyperlipidemia) Hx of osteoporosis AYALA (iron deficiency anemia) Renal stones Family History Family history of problems with anesthesia: No Surgical History Surgical History Hx of colonoscopy Hx of esophagogastroduodenoscopy S/P hip replacement S/P partial hysterectomy History of Problems with Anesthesia: No Social History Social History Alcohol intake: current Alcohol intake frequency: a few times a month Alcohol type: wine and hard liquor Patient Tobacco Use Status: Former Tobacco user Quit Date: 40 yrs ago Use of substances other than those prescribed or required for medical reasons: No Are you DNR?: No Advance Directives: No Advance Directives Information Provided: Yes Meds Allergies Allergy/AdvReac Type Severity Reaction Status Date / Time clarithromycin [From Biaxin] AdvReac Stomach Verified 01/25/23 12:01 Upset Home Medications Medication Instructions Recorded Confirmed Last Taken Type atorvastatin 40 mg tablet 1 tab PO DAILY 01/24/23 01/25/23 Unknown History propylthiouracil 50 mg tablet 1 tab PO Q OTHER DAY 01/24/23 01/25/23 Unknown History Exam Airway Mallampati Class: II TM Dist: >3cm Neck ROM: Full Heart: rrnl s1s2 Lungs: cta Assessment and Plan Assessment Anesthesia Assessment: Anesthesia Plan Discussed Final Anesthetic Review Family History of Problems with Anesthesia: No History of Problems with Anesthesia: No NPO: Yes ASA Class: II Final Preanesthetic Review: Meds/Allgs Chart Reviewed, Consent Obtained/Reviewed and Anes Risks/Benef Reviewed Patient Risk: Low Procedure Risk: Low Anesthetic Plan Anesthetic Plan: MAC: Disposition: Standard PACU
[2023-01-25 12:03] VITALS: BMI 24.3
[2023-01-25 12:15] VITALS: BP 152/77; PULSE 101; RESP 15; TEMP 37.1; O2SAT 98
[2023-01-25] MEDS: Lactated Ringers 1,000 ML 100 ML IVCONT (12:37)
--- NOTE | 2023-01-25 12:43 | P.CONAN_ITS ---
HPI - Anesthesia Eval Consult details Narrative: screening [facility] Past Medical History Medical History Bronchiectasis GERD (gastroesophageal reflux disease) Graves disease HLD (hyperlipidemia) Hx of osteoporosis AYALA (iron deficiency anemia) Renal stones Family History Family history of problems with anesthesia: No Surgical History Surgical History Hx of colonoscopy Hx of esophagogastroduodenoscopy S/P hip replacement S/P partial hysterectomy History of Problems with Anesthesia: No Social History Social History Alcohol intake: current Alcohol intake frequency: a few times a month Alcohol type: wine and hard liquor Patient Tobacco Use Status: Former Tobacco user Quit Date: 40 yrs ago Use of substances other than those prescribed or required for medical reasons: No Are you DNR?: No Advance Directives: No Advance Directives Information Provided: Yes Meds Allergies Allergy/AdvReac Type Severity Reaction Status Date / Time clarithromycin [From Biaxin] AdvReac Stomach Verified 01/25/23 12:01 Upset Active Medications: Current Medications Lactated Ringer's (Lr) 1,000 mls @ 100 mls/hr IVCONT .Q10H CASSY Last Admin: 01/25/23 12:37 Dose: 100 mls/hr Sodium Biphosphate/Sodium Phosphate (Sodium Phosphate,[place]-Dibasic 133 Ml Enema) 133 ml WA ONCE PRN PRN Reason: Poor Colonoscopy Prep Results Home Medications Medication Instructions Recorded Confirmed Last Taken Type atorvastatin 40 mg tablet 1 tab PO DAILY 01/24/23 01/25/23 Unknown History propylthiouracil 50 mg tablet 1 tab PO Q OTHER DAY 01/24/23 01/25/23 Unknown History Exam Exam Date and Time: January 25, 2023 1243 Height,Weight and Vital Signs: Height 5 ft 4 in Weight 64.41 kg Last Vital Signs Temp 98.7 F 01/25/23 12:15 Pulse 101 H 01/25/23 12:15 Resp 15 01/25/23 12:15 BP 152/77 H 01/25/23 12:15 Pulse Ox 98 01/25/23 12:15 O2 Del Method Room Air 01/25/23 12:15 Airway Mallampati Class: II TM Dist: >3cm Neck ROM: Full Heart: rr Lungs: cta Assessment and Plan Assessment Anesthesia Assessment: Anesthesia Plan Discussed and Chart Reviewed Final Anesthetic Review Family History of Problems with Anesthesia: No History of Problems with Anesthesia: No NPO: Yes ASA Class: II Final Preanesthetic Review: No Changes in Pt Med Stat, Meds/Allgs Chart Reviewed and Consent Obtained/Reviewed Patient Risk: Low Procedure Risk: Low Anesthetic Plan Anesthetic Plan: MAC: Disposition: Standard PACU
[2023-01-25 14:23] VITALS: BP 127/83; PULSE 95; TEMP 36.5; O2SAT 98
--- NOTE | 2023-01-25 14:27 | P.BOP_ITS ---
Brief Operative Note Date of Service: 01/25/23 Pre-op diagnosis: Anemia Post-op diagnosis: other (Hiatal hernia, Colon polyps, R/O Celiac disease) Procedure: EGD with biopsies, Colonoscopy to the cecum and TI with bx/removal of polyp and hot snare polypectomy Surgeon: Byron Nielsen Anesthesia: MAC Was an Television Tube Inspector used for this Procedure?: No Estimated blood loss (mL): 2.0 Pathology: other (A. Descending duodenum B. Duodenal bulb C. Cecal polyp D. Polyp at 40cm ) Condition: stable Disposition: PACU
[2023-01-25 14:38] VITALS: BP 131/65; PULSE 64; TEMP 36.8; O2SAT 96
--- NOTE | 2023-01-26 02:06 | OP_ITS ---
DATE OF SERVICE: 01/25/2023 SURGEON: Byron Nielsen MD PREOPERATIVE DIAGNOSIS: Iron deficiency anemia. POSTOPERATIVE DIAGNOSIS: PROCEDURE PERFORMED: Esophagogastroduodenoscopy with biopsies and colonoscopy to the cecum and terminal ileum with biopsy and removal of polyp, and hot snare polypectomy x 1. ESTIMATED BLOOD LOSS: COMPLICATIONS: ANESTHESIA: Monitored anesthesia care. ASSISTANTS: SPECIMENS: POSTOPERATIVE DIAGNOSES: Iron deficiency anemia, small hiatal hernia, rule out celiac disease, colon polyps, diverticulosis and internal hemorrhoids. INDICATION: The patient presents for evaluation of iron deficiency anemia. Full consent has been obtained from her for both procedures, including risks of bleeding and perforation. DESCRIPTION OF PROCEDURE: The patient was placed in the left lateral decubitus position. The Olympus video gastroscope was passed in the posterior oropharynx and upper esophagus under direct vision. The scope was passed slowly to the distal esophagus. The gastroesophageal junction appeared normal at 36 cm. There was no sign of esophagitis nor Conway's esophagus. The scope entered the stomach. There was a small hiatal hernia. The hiatal hernia mucosa appeared normal. The scope was advanced to the pylorus and the duodenum was cannulated to the descending portion. The duodenum including the bulb appeared normal without any evidence of mass or ulceration. There was no bleeding and duodenal folds appeared normal as well. Biopsies were obtained from the descending duodenum as well as in the duodenal bulb. The scope was withdrawn back into the stomach. The gastric antrum and body appeared normal with good peristalsis. The scope was retroflexed visualizing the proximal stomach carefully, which appeared normal, without any sign of mass or ulcerations. The scope was straightened and withdrawn back into the esophagus. The esophageal mucosa appeared normal. The scope was withdrawn from the patient. She was turned around for the colonoscopy. The digital rectal exam revealed no abnormalities. The Olympus video pediatric colonoscope was entered into the rectum and advanced easily to the cecum. Once in the cecum, I did identify cecal pouch with appendiceal orifice and a normal-appearing ileocecal valve. The terminal ileum was cannulated and appeared normal. The scope was withdrawn back in the colon. The entire cecum and ileocecal valve were well visualized and appeared normal other than a 3 mm polyp, which was biopsied and completely removed with a cold biopsy forceps. The remainder of the cecum appeared normal. The scope was then slowly withdrawn assessing all mucosal surfaces carefully. Preparation was excellent. At 40 cm was an approximately 6 to 8 mm polyp which was removed by hot snare polypectomy and recovered by suction. The polypectomy site appeared clean, without any sign of residual polyp nor bleeding. I did not visualize any sign of other polyps, colitis, nor any angiodysplasias. There was a mild amount of sigmoid diverticulosis. In the rectum, the scope was retroflexed visualizing internal hemorrhoids, but no other pathology. The rectal mucosa appeared normal. The scope was straightened and withdrawn from the patient. She tolerated the procedure well and was returned to the recovery area in stable condition. IMPRESSION: 1. Colon polyps. 2. Diverticulosis. 3. Internal hemorrhoids. 4. Hiatal hernia. 5. Rule out celiac disease. PLAN: The results of the biopsies will be checked. These findings would not account for her anemia. She was advised to resume her iron, but to increase it to twice a day as tolerated,and to continue her oral PPI as well. She was advised to avoid aspirin and NSAIDs correction. She will be having another blood count on January 29. I shall set up a followup appointment for her in the office. We may very well need to schedule her for a small bowel video capsule study for further evaluation of her anemia as well. This has all been discussed with the patient and her significant other in detail. MD EZEQUIEL Sheldon/SHAYY / [id number] MTDD
== END 2023-01-25 15:15 | disposition home or self-care (01) ==
PROVIDERS: PCP Internal Medicine; Visit Provider Internal Medicine
PROC: (CPT 45385; principal; 2023-01-25 13:00)
DX: D50.0 Iron deficiency anemia secondary to blood loss (chronic) (principal); R19.5 Other fecal abnormalities; D12.0 Benign neoplasm of cecum; D12.5 Benign neoplasm of sigmoid colon; K57.30 Diverticulosis of large intestine without perforation or abscess without bleeding; K64.8 Other hemorrhoids; K21.9 Gastro-esophageal reflux disease without esophagitis; K44.9 Diaphragmatic hernia without obstruction or gangrene; E78.5 Hyperlipidemia, unspecified; N20.0 Calculus of kidney; E05.00 Thyrotoxicosis with diffuse goiter without thyrotoxic crisis or storm; J47.9 Bronchiectasis, uncomplicated; Z79.51 Long term (current) use of inhaled steroids; Z79.899 Other long term (current) drug therapy; Z88.8 Allergy status to other drugs, medicaments and biological substances; Z87.891 Personal history of nicotine dependence
CPT/HCPCS: 45385; 45380; 43239; 88305; J3010

== ENCOUNTER 2023-01-29 10:39 | Outpatient (REF) | payer MEDICARE, OTHER, SELFPAY ==
[2023-01-29 10:43] LABS: MANUAL DIFF FLAG NO
[2023-01-29 10:59] LABS: Basophils Percent Auto 0.7 % (0-2); Eosinophils Absolute Auto 0.3 X10*3/uL (0.0-0.4); Eosinophils Percent Auto 5.1 % (0-4); Hematocrit 29.4 % (37.0-47.0); Hemoglobin 8.8 g/dl (12.0-16.0); Imm Gran Abs Auto 0.02 X10*3/uL (0.00-0.03); Imm Gran Pct Auto 0.4 % (0.0-0.4); Lymphocytes Absolute Auto 1.3 X10*3/uL (1.2-4.9); Lymphocytes Percent Auto 22.5 % (20-40); Mean Corpuscular HGB Conc 29.9 g/dl (31.0-35.0); Mean Corpuscular Hemoglobin 23.5 pg (27.0-33.0); Mean Corpuscular Volume 78.4 fL (80.0-98.0); Mean Platelet Volume 9.5 fL (9.4-12.3); Monocytes Absolute Auto 0.5 X10*3/uL (0.1-1.2); Monocytes Percent Auto 8.1 % (2-11); Neutrophils Absolute Auto 3.6 x10*3/uL (2.0-8.3); Neutrophils Percent Auto 63.2 % (45-73); Platelet Count 364 X10*3/uL (160-400); Red Blood Count 3.75 X10*6/uL (4.20-5.50); Red Cell Distribution Width 24.3 % (11.0-16.0); White Blood Count 5.7 X10*3/uL (4.8-10.8)
== END 2023-01-29 10:40 | disposition home or self-care (01) ==
LOC: HO.LNP 10:39
PROVIDERS: Visit Provider Internal Medicine
DX: K62.5 Hemorrhage of anus and rectum (principal)
CPT/HCPCS: 85025

== ENCOUNTER 2023-03-02 15:42 | Outpatient (REF) | payer MEDICARE, OTHER, SELFPAY ==
[2023-03-02 15:45] LABS: MANUAL DIFF FLAG NO
[2023-03-02 15:55] LABS: Basophils Percent Auto 0.8 % (0-2); Eosinophils Absolute Auto 0.1 X10*3/uL (0.0-0.4); Eosinophils Percent Auto 2.5 % (0-4); Hematocrit 36.2 % (37.0-47.0); Hemoglobin 10.7 g/dl (12.0-16.0); Imm Gran Abs Auto 0.02 X10*3/uL (0.00-0.03); Imm Gran Pct Auto 0.4 % (0.0-0.4); Lymphocytes Percent Auto 20.4 % (20-40); Mean Corpuscular HGB Conc 29.6 g/dl (31.0-35.0); Mean Corpuscular Hemoglobin 24.3 pg (27.0-33.0); Mean Corpuscular Volume 82.3 fL (80.0-98.0); Monocytes Absolute Auto 0.4 X10*3/uL (0.1-1.2); Neutrophils Absolute Auto 3.2 x10*3/uL (2.0-8.3); Neutrophils Percent Auto 66.9 % (45-73); Platelet Count 270 X10*3/uL (160-400); Red Cell Distribution Width 24.2 % (11.0-16.0); White Blood Count 4.8 X10*3/uL (4.8-10.8)
[2023-03-02 16:52] LABS: Iron 24 mcg/dL (30-160); Percent Iron Saturation 8 % (15-50); Total Iron Binding Capacity 292 mcg/dL (228-428); Unsaturated Iron Binding 268 ug/dL
== END 2023-03-02 15:43 | disposition home or self-care (01) ==
LOC: HO.LNP 15:42
PROVIDERS: Visit Provider Internal Medicine
DX: D50.0 Iron deficiency anemia secondary to blood loss (chronic) (principal)
CPT/HCPCS: 83540; 85025

== ENCOUNTER → 2023-03-15 14:07 | Outpatient (BNVA) | payer MEDICARE, OTHER, SELFPAY | PROVIDERS: PCP Internal Medicine; Visit Provider Internal Medicine | DX: R07.2 Precordial pain (principal); R06.02 Shortness of breath; I25.10 Atherosclerotic heart disease of native coronary artery without angina pectoris; I65.23 Occlusion and stenosis of bilateral carotid arteries; I10 Essential (primary) hypertension | CPT/HCPCS: 93005; 99202 ==

== ENCOUNTER → 2023-03-28 12:47 | Outpatient (REF) | payer MEDICARE, OTHER, SELFPAY ==
--- NOTE | ~2023-03-28 | US_ITS ---
EXAMINATION: US EXTRACRANIAL CAROTID DUPLEX, BILATERAL CLINICAL INFORMATION: Carotid stenosis. Hyperlipidemia. COMPARISON: 10/21/2019. TECHNIQUE: Real-time ultrasound and Doppler techniques (integrating B-mode 2-D vascular images, Doppler spectral analysis and color-flow Doppler imaging) were utilized to interrogate the extracranial carotid arteries, the vertebral arteries and proximal subclavian arteries bilaterally. The degree of stenosis is determined by criteria similar to NASCET. FINDINGS: Right Side: 1. There is mild atherosclerotic plaque seen in the bifurcation/proximal ICA region. 2. The common carotid artery PSV proximally is 52 cm/s and distally 35 cm/s. 3. The proximal internal carotid artery velocities are 41 cm/s systolic and 16 cm/s diastolic. 4. The proximal external carotid artery PSV is 60 cm/s. 5. The vertebral artery shows anterior flow. 6. The subclavian artery waveforms are normal. Left Side: 1. There is mild atherosclerotic plaque seen in the bifurcation/proximal ICA region. 2. The common carotid artery PSV proximally is 47 cm/s and distally 46 cm/s. 3. The proximal internal carotid artery velocities are 56 cm/s systolic and 18 cm/s diastolic. 4. The proximal external carotid artery PSV is 48 cm/s. 5. The vertebral artery shows antegrade flow. 6. The subclavian artery waveforms are normal. US/US carotid duplex BI IMPRESSION: 1. RIGHT: Minimal, non-hemodynamically significant stenosis of the proximal right internal carotid artery corresponding to a 0-49% stenosis by velocity criteria. 2. LEFT: Minimal, non-hemodynamically significant stenosis of the proximal left internal carotid artery corresponding to a 0-49% stenosis by velocity criteria. 3. There is no change in the category severity of disease when compared to the previous study dated 10/21/2019.
--- NOTE | 2023-03-28 12:51 | CA_ITS ---
Transthoracic Echocardiogram Patient (Last, First, Middle): Marielle Valdivia, Gender: Female Date of : 1945 Age: 77 Procedure Date: 03/28/2023 Procedure Type: Transthoracic Echocardiogram Location: OP Height: 162.56 cm Weight: 64.86 kg BSA: 1.70 m2 Heart Rate: bpm BP: 170 / 82 mmHg Insurance Executive: TO Referring MD: Ld Guerrero MD Symptoms: I25.10 - Atherosclerotic heart disease of [place] coronary artery without... Study Quality: Fair ECG Rhythm: Sinus Conclusions: - The left ventricular systolic function is normal. The calculated ejection fraction is 56% by biplane method. - There is mild mitral annular calcification. There is mild mitral valve regurgitation. - The inferior vena cava is dilated and collapses less than 50% with inspiration. Findings Left Ventricle Normal left ventricular cavity size. There is mildly increased left ventricular wall thickness. The left ventricular systolic function is normal. The calculated ejection fraction is 56% by biplane method. There is no evidence of regional wall motion abnormalities. Evidence suggests grade I (mild) diastolic dysfunction. Right Ventricle Normal right ventricular cavity size and systolic function. Atria Both atria are normal in size. Aortic Valve There is a normal trileaflet aortic valve. There is no aortic valve stenosis. There is trace (trivial) aortic valve regurgitation. Mitral Valve There is mild anterior mitral leaflet thickening. There is mild mitral annular calcification. There is mild mitral valve regurgitation. There is no mitral valve stenosis. Pulmonic Valve The pulmonic valve is likely normal. Tricuspid Valve Normal tricuspid valve structure. There is trace tricuspid valve regurgitation. There is no evidence of pulmonary hypertension. Great Vessels There is mild dilatation of the ascending aorta measuring 3.80 cm. Venous The inferior vena cava is dilated and collapses less than 50% with inspiration. Pericardium/Pleural There is no evidence of pericardial effusion. Prior Study Comparison No prior study available for comparison. Measurements 2D Linear Measurements IVSd: 1.15 0.6-0.9/0.6-1.0 cm LVIDd: 4.41 3.9-5.3/4.2-5.9 cm LVIDd Index: 2.59 2.4-3.2/2.2-3.1 cm/m2 LVIDs: 2.85 2.0-3.6 cm LVPWd: 1.12 0.7-1.1 cm LA Diam: 3.60 2.7-3.8/3.0-4.0 cm LAIDs Index: 2.12 1.5-2.3 cm/m2 LV Mass: 220.80 67-162/88-224 g LV Mass Index: 129.88 43-95/49-115 g/m2 LVOT Diam: 2.20 3.0+(-)1.3 cm 2D Systolic Function EF 4C: 53.10 >55% EF 2C: 57.20 >55% EF BiP: 55.90 >55% Mitral Valve MV Pk E: 0.50 MV PK A: 1.06 MV Decel Time: 323.00 E/A: 0.50 E'Lateral: 4.46 E'Medial: 4.13 E/E' Med: 12.10 E/E' Lat: 11.20 PHT: 95.00 MVA PHT: 2.32 Decel Lipscomb: 1.55 Aortic Valve AoV Pk Andre: 1.19 AoV Mn Andre: 0.86 AoV VTI: 0.26 AoV Pk Grad: 6.00 Aov Mn Grad: 3.00 BRENDA Cont.VTI: 2.40 LVOT LVOT Pk Andre: 0.80 LVOT Mn Andre: 0.48 LVOT VTI: 0.16 LVOT Pk Grad: 3.00 LVOT Mn Grad: 1.00 LVOT Diam: 2.20 LVOT Area: 3.80 Diastolic Function MV Pk E: 0.50 MV Pk A: 1.06 E/A: 0.50 E'Medial: 4.13 E/E' Med: 12.10 E' Laterial: 4.46 E/E' Lat: 11.20 Right Ventricle TAPSE (mm): 19.50 TVS' Andre: 10.00 Tricuspid Valve TR Pk Andre: 2.49 TR Pk Grad: 25.00 RA Press: 8.00 RVSP: 33.00 Great Vessels Aorta Sinus of Valsalva: 3.56 2.0-3.[address] [place]: 2.90 1.7-3.4 cm Ao Asc: 3.80 2.1-3.4 cm Updated in Other Vendor System with Status of Final Ld Guerrero MD electronically signed on 03/30/2023 10:39:06 AM with status of Final
== END ==
LOC: HO.CARD 12:47
PROVIDERS: PCP Internal Medicine; Visit Provider Internal Medicine
DX: I65.23 Occlusion and stenosis of bilateral carotid arteries (principal); I25.10 Atherosclerotic heart disease of native coronary artery without angina pectoris; R06.02 Shortness of breath
CPT/HCPCS: 93306; 93880

== ENCOUNTER → 2023-03-30 09:29 | Outpatient (REF) | payer MEDICARE, OTHER, SELFPAY ==
--- NOTE | 2023-03-30 09:35 | CA_ITS ---
Acquisition Time: 2023-03-30 09:51:58 Total Exercise Time: 00:05:32 Test Indications: SOB Medications: SEE H Protocol: MARIA M Max HR: 133 BPM 92% of Pred: 144 BPM Max BP: 168/078 mmHG Max Work Load: 7.0 METS Exercise stress test with exercise 5 min 32 sec of Maria M protocol achieving 90% MPHR, with mild SOB, no chest discomfort, with isolated PVCs, with normotensive response to exercise, without EKG changes. Nuclear images pending. Test reviewed with Dr. Guerrero. Referred By: Ld Guerrero Overread By: ISELA NEWELL
== END ==
LOC: HO.CARD 09:29
PROVIDERS: PCP Internal Medicine; Visit Provider Internal Medicine
DX: R07.2 Precordial pain (principal); I25.10 Atherosclerotic heart disease of native coronary artery without angina pectoris
CPT/HCPCS: 93017

== ENCOUNTER 2023-04-03 10:46 | Outpatient (REF) | payer MEDICARE, OTHER, SELFPAY ==
[2023-04-03 10:49] LABS: MANUAL DIFF FLAG NO
[2023-04-03 11:25] LABS: Basophils Percent Auto 0.8 % (0-2); Eosinophils Absolute Auto 0.2 X10*3/uL (0.0-0.4); Eosinophils Percent Auto 5.2 % (0-4); Hemoglobin 10.9 g/dl (12.0-16.0); Imm Gran Abs Auto 0.01 X10*3/uL (0.00-0.03); Imm Gran Pct Auto 0.3 % (0.0-0.4); Lymphocytes Absolute Auto 1.2 X10*3/uL (1.2-4.9); Lymphocytes Percent Auto 32.5 % (20-40); Mean Corpuscular HGB Conc 30.3 g/dl (31.0-35.0); Mean Corpuscular Volume 85.9 fL (80.0-98.0); Mean Platelet Volume 9.9 fL (9.4-12.3); Monocytes Absolute Auto 0.4 X10*3/uL (0.1-1.2); Monocytes Percent Auto 11.7 % (2-11); Neutrophils Absolute Auto 1.8 x10*3/uL (2.0-8.3); Neutrophils Percent Auto 49.5 % (45-73); Platelet Count 195 X10*3/uL (160-400); Red Blood Count 4.19 X10*6/uL (4.20-5.50); Red Cell Distribution Width 18.4 % (11.0-16.0); White Blood Count 3.7 X10*3/uL (4.8-10.8)
== END 2023-04-03 10:47 | disposition home or self-care (01) ==
LOC: HO.LNP 10:46
PROVIDERS: Visit Provider Internal Medicine
DX: D64.9 Anemia, unspecified (principal)
CPT/HCPCS: 85025

== ENCOUNTER 2023-04-10 11:01 | Outpatient (REF) | payer MEDICARE, OTHER, SELFPAY ==
[2023-04-10 11:03] LABS: MANUAL DIFF FLAG NO
[2023-04-10 11:11] LABS: Basophils Percent Auto 0.6 % (0-2); Eosinophils Absolute Auto 0.2 X10*3/uL (0.0-0.4); Eosinophils Percent Auto 3.4 % (0-4); Hematocrit 34.3 % (37.0-47.0); Hemoglobin 10.6 g/dl (12.0-16.0); Imm Gran Abs Auto 0.01 X10*3/uL (0.00-0.03); Imm Gran Pct Auto 0.2 % (0.0-0.4); Lymphocytes Absolute Auto 1.4 X10*3/uL (1.2-4.9); Lymphocytes Percent Auto 27.5 % (20-40); Mean Corpuscular HGB Conc 30.9 g/dl (31.0-35.0); Mean Corpuscular Hemoglobin 27.1 pg (27.0-33.0); Mean Corpuscular Volume 87.7 fL (80.0-98.0); Mean Platelet Volume 9.5 fL (9.4-12.3); Monocytes Absolute Auto 0.5 X10*3/uL (0.1-1.2); Monocytes Percent Auto 9.9 % (2-11); Neutrophils Percent Auto 58.4 % (45-73); Platelet Count 293 X10*3/uL (160-400); Red Blood Count 3.91 X10*6/uL (4.20-5.50); Red Cell Distribution Width 17.6 % (11.0-16.0); White Blood Count 5.1 X10*3/uL (4.8-10.8)
== END 2023-04-10 11:02 | disposition home or self-care (01) ==
LOC: HO.LNP 11:01
PROVIDERS: Visit Provider Internal Medicine
DX: D70.9 Neutropenia, unspecified (principal)
CPT/HCPCS: 85025

== ENCOUNTER 2023-05-21 12:35 | Outpatient (REF) | payer MEDICARE, OTHER, SELFPAY ==
[2023-05-21 12:45] LABS: MANUAL DIFF FLAG NO
[2023-05-21 12:50] LABS: Appearance Urine Clear; Color Urine Yellow; Glucose Urine UA Negative (Negative); Leukocyte Esterase Urine Trace (Negative); Nitrite Urine Negative (Negative); PH 7.5 (5.0-9.0); Specific Gravity - Urine 1.015 (1.005-1.025); UMIC TRIGGER UACC YES; Urine Blood Negative (Negative); Urine Ketones Negative (Negative); Urine Protein Negative (Neg-Trace)
[2023-05-21 12:51] LABS: Basophils Percent Auto 0.9 % (0-2); Eosinophils Absolute Auto 0.2 X10*3/uL (0.0-0.4); Eosinophils Percent Auto 4.1 % (0-4); Hematocrit 39.7 % (37.0-47.0); Hemoglobin 12.5 g/dl (12.0-16.0); Imm Gran Abs Auto 0.02 X10*3/uL (0.00-0.03); Imm Gran Pct Auto 0.4 % (0.0-0.4); Lymphocytes Absolute Auto 1.4 X10*3/uL (1.2-4.9); Lymphocytes Percent Auto 31.1 % (20-40); Mean Corpuscular HGB Conc 31.5 g/dl (31.0-35.0); Mean Platelet Volume 10.6 fL (9.4-12.3); Monocytes Absolute Auto 0.5 X10*3/uL (0.1-1.2); Monocytes Percent Auto 9.9 % (2-11); Neutrophils Absolute Auto 2.5 x10*3/uL (2.0-8.3); Neutrophils Percent Auto 53.6 % (45-73); Platelet Count 232 X10*3/uL (160-400); Red Blood Count 4.46 X10*6/uL (4.20-5.50); Red Cell Distribution Width 13.9 % (11.0-16.0); White Blood Count 4.6 X10*3/uL (4.8-10.8)
[2023-05-21 12:52] LABS: Bacteria Urine None Seen (None Seen); Hyaline Casts Urine 0-2 /LPF (0-2); RBC Urine 0-2 /HPF (0-2); Squamous Epithelial Cell Urine 0-2 /HPF (0-2); WBC Urine 0-5 /HPF (0-5)
[2023-05-21 13:12] LABS: Alanine Aminotransferase 15 U/L (0-31); Albumin Level 4.1 g/dL (3.5-5.0); Alkaline Phosphatase 107 U/L (39-117); Anion Gap 13 (12-20); Aspartate Amino Transferase 20 U/L (5-31); Bilirubin Direct 0.3 mg/dL (0.0-0.5); Bilirubin Total 0.6 mg/dL (0.0-1.0); Blood Urea Nitrogen 17 mg/dL (9-16); Calcium 10.1 mg/dL (8.4-10.2); Carbon Dioxide 27 mmol/L (22-29); Chloride 108 mmol/L (96-108); Cholesterol 121 mg/dL; Estimated Glomerular Filt Rate > 60; Glucose Fasting 84 mg/dL (60-99); HDL Cholesterol 50 mg/dL; LDL Cholesterol Calculated 56 mg/dl; Sodium 144 mmol/L (135-145); Total Protein 7.6 g/dL (6.5-8.0); Triglycerides 75 mg/dL
[2023-05-21 13:24] LABS: TSH reflex Free T4 0.03 uIU/mL (0.32-4.0)
[2023-05-21 14:43] LABS: Free T4 (Free Thyroxine) 1.11 ng/dL (0.71-1.85)
== END 2023-05-21 12:36 | disposition home or self-care (01) ==
LOC: HO.LNP 12:35
PROVIDERS: Visit Provider Internal Medicine
DX: D64.9 Anemia, unspecified (principal); D72.820 Lymphocytosis (symptomatic); I10 Essential (primary) hypertension; I25.10 Atherosclerotic heart disease of native coronary artery without angina pectoris; E05.00 Thyrotoxicosis with diffuse goiter without thyrotoxic crisis or storm
CPT/HCPCS: 80053; 80061; 80076; 81001; 82248; 84439; 84443; 85025

== ENCOUNTER 2023-05-31 14:12 | Outpatient (AMB) | payer MEDICARE, OTHER, SELFPAY ==
--- NOTE | 2023-05-31 14:19 | A.OFFVIS_ITS ---
Intake Vital Signs 05/31/23 14:20 Height 5 ft 4 in Weight 145 lb 8.081 oz BMI 25.0 BP 140/82 H Blood Pressure Location Lt brachial Position Sitting Pulse 62 Intake Visit Reasons: f/up per hs Intake Note: follow up Picture Enlarger Required: No Accompanied by: Self / Same As Patient Allergies clarithromycin [From Biaxin] Adverse Reaction (Verified 05/31/23 14:22) Stomach Upset Medication List - Last Reconciled 05/31/23 by Ld Guerrero MD atorvastatin 40 mg PO DAILY ferrous sulfate 325 mg PO DAILY pantoprazole (Protonix) 40 mg PO DAILY propylthiouracil 50 mg PO DAILY HPI HPI Comments History of Present Illness Details Marielle returns for follow-up. In the past, she was seen regarding shortness of breath. She has a history of bronchiectasis. However, more recently she was having worsening shortness of breath that led to further evaluation. She was found to be anemic and hence received blood transfusions. Now hemoglobin is much improved. Her breathing is also improved. Any case, her PCP wanted cardiac status assessed to ensure there is nothing else going on from cardiac standpoint. Patient herself does not have any known issues like coronary disease, myocardial infarction or cardiomyopathy. She states she had a carotids checked few years ago and was told to have some carotid plaque. She has completed an echocardiogram, stress test and carotid Dopplers. Overall, she feels good. No cardiac symptoms. [facility] Medical History (Updated 03/15/23 @ 14:58 by Ld Guerrero MD) Atherosclerotic cardiovascular disease Bronchiectasis Carotid artery stenosis GERD (gastroesophageal reflux disease) Graves disease HLD (hyperlipidemia) Hx of osteoporosis AYALA (iron deficiency anemia) Renal stones Surgical History Hx of colonoscopy Hx of esophagogastroduodenoscopy S/P hip replacement S/P partial hysterectomy Social History Alcohol intake: current Alcohol intake frequency: a few times a month Alcohol type: wine and hard liquor Patient Tobacco Use Status: Former Tobacco user Quit Date: 40 yrs ago Review of Systems Const Denies weakness ENT Denies dizziness Card Denies chest pain, Denies chest pain with activity, Denies syncope, Denies rapid heart rate, Denies pedal edema, Denies edema, Denies leg edema, Denies lightheadedness, Denies palpitations, Denies dyspnea, Denies dyspnea on exertion and Denies orthopnea Resp Denies cough, Denies dyspnea and Denies dyspnea on exertion GI Denies hematochezia and Denies change in stool character Musc Denies abnormal gait, Denies muscle cramps, Denies muscle weakness, Denies numbness, Denies radiating pain into limb and Denies tingling Neuro Denies abnormal gait, Denies dizziness, Denies syncope, Denies numbness, Denies tingling and Denies weakness Endo Denies palpitations Physical Exam Vital Signs: Last Vital Signs Pulse 62 05/31/23 14:20 BP 140/82 H 05/31/23 14:20 BMI result Body Mass Index 25.0 Const General: comfortable and no acute distress Orientation/consciousness: patient oriented x3 HEENT Other: Unremarkable Head: Yes normal to inspection Neck Neck: Yes normal visual inspection Chest Chest palpation & inspection: normal inspection of the chest Resp Auscultation: clear to auscultation bilaterally Cardio Palpation: normal PMI Heart sounds: S1 normal heart sound present, S2 normal heart sound present, no gallops, no murmurs and no rubs GI Palpation (GI): Soft to palpation Back/Spine/Pelvis Other: unremarkable Skin General skin exam: no rashes or lesions noted Neuro General: patient oriented x3 Extrem General: Yes normal to inspection Psych Mental Status: mental status grossly normal Assessment & Plan Assessment & Plan (1) Atherosclerotic cardiovascular disease: Code(s): I25.10 - Atherosclerotic heart disease of [place] coronary artery without angina pectoris Plan Pertinent studies reviewed. Chest CT scan also shows bronchiectasis/emphysema as well as scoliosis. From cardiac, she has coronary artery calcification. Echocardiogram with LVEF of 56%. No wall motion abnormalities. Mild mitral annular calcification/mild regurgitation. In the exercise stress test, she was able to exercise for 5 minutes and 32 seconds and reached 7 Mets exercise capacity. Reached 90% of max predicted heart rate. No EKG evidence of ischemia. No chest discomfort. There was some technical difficulty and hence the nuclear portion was not completed. Carotid ultrasound is unremarkable. Overall, she has evidence of coronary disease but no symptoms from this. No specific management. She is already on statins and her cholesterol is well controlled. Blood pressure borderline high but can be followed up with her own PCP. Otherwise, reassurance. She will contact us as needed. Coding Level of Care Code Est Pt Level 3 (38060) Diagnoses Atherosclerotic cardiovascular disease I25.10
[2023-05-31 14:20] VITALS: BP 140/82; PULSE 62; BMI 25.0
== END 2023-05-31 15:11 | disposition home or self-care (01) ==
PROVIDERS: Visit Provider Internal Medicine
DX: I25.10 Atherosclerotic heart disease of native coronary artery without angina pectoris (principal)
CPT/HCPCS: 99213

== ENCOUNTER → 2023-05-31 14:12 | Outpatient (BNVA) | payer MEDICARE, OTHER, SELFPAY | PROVIDERS: Visit Provider Internal Medicine | DX: I25.10 Atherosclerotic heart disease of native coronary artery without angina pectoris (principal); I10 Essential (primary) hypertension | CPT/HCPCS: 99212 ==

== ENCOUNTER 2023-07-27 09:33 | Outpatient (REF) | payer MEDICARE, OTHER, SELFPAY | END 2023-07-27 09:34 | disposition home or self-care (01) | LOC: HO.MAMMO 09:33 | PROVIDERS: PCP Internal Medicine; Visit Provider Internal Medicine | DX: Z12.31 Encounter for screening mammogram for malignant neoplasm of breast (principal) | CPT/HCPCS: 77063; 77067 ==

== ENCOUNTER → 2023-07-27 09:45 | Outpatient (BNV) | payer MEDICARE, OTHER, SELFPAY | PROVIDERS: PCP Internal Medicine; Visit Provider Radiology Diagnostic Radiology | DX: Z12.31 Encounter for screening mammogram for malignant neoplasm of breast (principal) | CPT/HCPCS: 77063; 77067 ==

== ENCOUNTER 2023-08-24 11:10 | Outpatient (REF) | payer MEDICARE, OTHER, SELFPAY ==
--- NOTE | ~2023-08-24 | XR_ITS ---
EXAMINATION: XR CHEST CLINICAL INFORMATION: Acute cough, bronchiectasis. COMPARISON: CT chest 12/14/2021. Chest radiograph 01/14/2020. TECHNIQUE: 2 views of the chest were obtained. FINDINGS: Redemonstration of right greater than left patchy and linear-like opacities projecting over the right mid to lower lung and left lower lung, that are increased compared to 01/14/2020, and difficult to accurately compare due to chest CT from 12/14/2021 in view of the differences in modality. A 0.6 cm nodule in the left lower lobe is unchanged compared to 01/14/2020. Chronic small amount of right-sided pleural fluid versus pleural thickening. No pneumothorax. Normal heart size. Thoracic spondylosis. No acute osseous findings. XR/XR chest 2V IMPRESSION: Increased airspace opacities projecting over the right mid to lower lung and left lower lung compared to 01/14/2020, that are difficult to accurately compare to chest CT from 12/14/2021 in view of the differences in modality. Findings likely represent acute on chronic infectious/inflammatory airways disease with mucus impaction and bronchiectasis. A 0.6 cm left lower lobe nodule is unchanged. Correlation with CT chest would be helpful in further characterization and for accurate comparison with most recent prior CT chest from 12/14/2021.
== END 2023-08-24 11:11 | disposition home or self-care (01) ==
LOC: HO.XRAY 11:10
PROVIDERS: PCP Internal Medicine; Visit Provider Internal Medicine
DX: J47.9 Bronchiectasis, uncomplicated (principal); R05.1 Acute cough
CPT/HCPCS: 71046

== ENCOUNTER 2023-09-07 13:59 | Outpatient (REF) | payer MEDICARE, OTHER, SELFPAY ==
[2023-09-07 15:28] LABS: CDiff Gene PCR POSITIVE (Negative)
[2023-09-07 16:35] LABS: CDiff Toxin Positive (Negative)
[2023-09-07 16:45] LABS: CDIFF Internal ctrl Dots and bkg OK (V)
== END 2023-09-07 14:00 | disposition home or self-care (01) ==
LOC: HO.LNP 13:59
PROVIDERS: Visit Provider Internal Medicine
DX: R19.7 Diarrhea, unspecified (principal)
CPT/HCPCS: 87324; 87493

== ENCOUNTER 2023-09-25 10:12 | Outpatient (REF) | payer MEDICARE, OTHER, SELFPAY ==
[2023-09-25 10:34] LABS: MANUAL DIFF FLAG NO
[2023-09-25 11:11] LABS: Basophils Percent Auto 0.6 % (0-2); Eosinophils Absolute Auto 0.2 X10*3/uL (0.0-0.4); Hematocrit 37.1 % (37.0-47.0); Hemoglobin 11.6 g/dl (12.0-16.0); Imm Gran Abs Auto 0.02 X10*3/uL (0.00-0.03); Imm Gran Pct Auto 0.4 % (0.0-0.4); Mean Corpuscular HGB Conc 31.3 g/dl (31.0-35.0); Mean Corpuscular Hemoglobin 28.2 pg (27.0-33.0); Mean Platelet Volume 9.6 fL (9.4-12.3); Monocytes Absolute Auto 0.5 X10*3/uL (0.1-1.2); Monocytes Percent Auto 9.7 % (2-11); Neutrophils Absolute Auto 3.4 x10*3/uL (2.0-8.3); Neutrophils Percent Auto 67.3 % (45-73); Platelet Count 282 X10*3/uL (160-400); Red Blood Count 4.12 X10*6/uL (4.20-5.50); Red Cell Distribution Width 13.8 % (11.0-16.0); White Blood Count 5.1 X10*3/uL (4.8-10.8)
[2023-09-25 11:58] LABS: Iron 49 mcg/dL (30-160); Percent Iron Saturation 20 % (15-50); Total Iron Binding Capacity 248 mcg/dL (228-428); Unsaturated Iron Binding 199 ug/dL
[2023-09-25 12:08] LABS: Ferritin 58 ng/mL (10-250)
== END 2023-09-25 10:13 | disposition home or self-care (01) ==
LOC: HO.LAB 10:12
PROVIDERS: PCP Internal Medicine; Visit Provider Internal Medicine
DX: D50.0 Iron deficiency anemia secondary to blood loss (chronic) (principal)
CPT/HCPCS: 36415; 82728; 83540; 85025

== ENCOUNTER 2023-11-22 10:20 | Outpatient (REF) | payer MEDICARE, OTHER, SELFPAY ==
[2023-11-22 11:39] LABS: Alanine Aminotransferase 25 U/L (0-31); Albumin Level 4.1 g/dL (3.5-5.0); Alkaline Phosphatase 121 U/L (39-117); Aspartate Amino Transferase 27 U/L (5-31); Bilirubin Direct 0.3 mg/dL (0.0-0.5); Bilirubin Total 0.7 mg/dL (0.0-1.0); Cholesterol 133 mg/dL (<200); HDL Cholesterol 53 mg/dL (>40); LDL Cholesterol Calculated 64 mg/dL (<100); Total Protein 7.6 g/dL (6.5-8.0); Triglycerides 84 mg/dL (<150)
== END 2023-11-22 10:21 | disposition home or self-care (01) ==
LOC: HO.LNP 10:20
PROVIDERS: Visit Provider Internal Medicine
DX: I25.10 Atherosclerotic heart disease of native coronary artery without angina pectoris (principal); I10 Essential (primary) hypertension
CPT/HCPCS: 80061; 80076

== ENCOUNTER 2024-04-29 10:23 | Outpatient (REF) | payer MEDICARE, OTHER, SELFPAY | END 2024-04-29 10:24 | disposition home or self-care (01) | LOC: HO.SH 10:23 | PROVIDERS: Visit Provider Internal Medicine | DX: Z01.118 Encounter for examination of ears and hearing with other abnormal findings (principal); H90.3 Sensorineural hearing loss, bilateral | CPT/HCPCS: 92552; 92556 ==

== ENCOUNTER 2024-04-30 12:58 | Outpatient (REF) | payer SELFPAY | END 2024-04-30 12:59 | disposition home or self-care (01) | LOC: HO.HAP 12:58 | PROVIDERS: Visit Provider Internal Medicine | DX: Z13.89 Encounter for screening for other disorder (principal) ==

== ENCOUNTER 2024-05-16 10:26 | Outpatient (REF) | payer SELFPAY ==
--- NOTE | 2024-05-16 14:16 | MHC.AU.HA3 ---
Hearing Instrument Follow-Up- Binaural Date of Visit: 05/16/24 Right Ear: Pierce, Model, Color, Serial Number: [id number] Phonak Audeo P90-R Champagne Hydramatic Specialist Repair Warranty: 05/10/2024 Hydramatic Specialist Loss and Damage Warranty: 05/10/2024 [facility] Service Plan: 05/10/2024 Battery Size: Rechargeable Retail Key Holder/Slim Tube: #0 Medium Earmold/Dome/CShell/SlimTip:Canal Lock C-Shell #[id number] warranty 08/11/2021 Type of Wax Guard: CeruStop Dispensed By: [facility] Date of Fittin02/28/2021 Left Ear: Make, Model, Color, Serial Number: [id number] Phonak Audeo P90-R Champagne Hydramatic Specialist Repair Warranty: 05/10/2024 Hydramatic Specialist Loss and Damage Warranty: 05/10/2024 [facility] Service Plan: 05/10/2024 Battery Size: Rechargeable Retail Key Holder/Slim Tube: #0 Medium Earmold/Dome/CShell/SlimTip: Canal Lock C-Shell #[id number] warranty 08/11/2021 Type of Wax Guard: CeruStop Dispensed By: [facility] Date of Fittin02/28/2021 Follow-Up Summary: Marielle returned the loaners and picked up her repaired hearing aids. Reviewed wax guard procedures. Paired aids to her phone with button and tap control disabled so she may have success for streaming calls without inadvertently engaging Silvina. Return if issues arise. Recommendations: Recommendations: Hearing instrument follow-up or maintenance as needed. Diagnosis Code(s): Primary Diagnosis: H90.3 Bilateral Sensorineural Hearing Loss Signature: Provider: Darcie Hodges, [facility]
== END 2024-05-16 10:27 | disposition home or self-care (01) ==
LOC: HO.HAP 10:26
PROVIDERS: Visit Provider Internal Medicine
DX: Z13.89 Encounter for screening for other disorder (principal)

== ENCOUNTER 2024-05-22 10:59 | Outpatient (REF) | payer SELFPAY ==
[2024-05-22 11:03] LABS: MANUAL DIFF FLAG NO
[2024-05-22 11:09] LABS: Basophils Percent Auto 0.7 % (0-2); Eosinophils Absolute Auto 0.3 X10*3/uL (0.0-0.4); Eosinophils Percent Auto 6.1 % (0-4); Hematocrit 37.7 % (37.0-47.0); Hemoglobin 12.5 g/dl (12.0-16.0); Imm Gran Abs Auto 0.01 X10*3/uL (0.00-0.03); Imm Gran Pct Auto 0.2 % (0.0-0.4); Lymphocytes Absolute Auto 1.4 X10*3/uL (1.2-4.9); Lymphocytes Percent Auto 25.1 % (20-40); Mean Corpuscular HGB Conc 33.2 g/dl (31.0-35.0); Mean Corpuscular Hemoglobin 29.9 pg (27.0-33.0); Mean Corpuscular Volume 90.2 fL (80.0-98.0); Mean Platelet Volume 10.3 fL (9.4-12.3); Monocytes Absolute Auto 0.6 X10*3/uL (0.1-1.2); Monocytes Percent Auto 11.5 % (2-11); Neutrophils Absolute Auto 3.1 x10*3/uL (2.0-8.3); Neutrophils Percent Auto 56.4 % (45-73); Platelet Count 226 X10*3/uL (160-400); Red Blood Count 4.18 X10*6/uL (4.20-5.50); Red Cell Distribution Width 13.3 % (11.0-16.0); White Blood Count 5.6 X10*3/uL (4.8-10.8)
[2024-05-22 11:10] LABS: Appearance Urine Clear; Color Urine Yellow; Glucose Urine UA Negative (Negative); Leukocyte Esterase Urine Small (1+) (Negative); Nitrite Urine Negative (Negative); UMIC TRIGGER UA YES; Urine Blood Negative (Negative); Urine Ketones Negative (Negative); Urine Protein Negative (Neg-Trace)
[2024-05-22 11:16] LABS: Bacteria Urine None Seen (None Seen); Hyaline Casts Urine 0-2 /LPF (0-2); RBC Urine 0-2 /HPF (0-2); Squamous Epithelial Cell Urine 0-2 /HPF (0-2)
[2024-05-22 11:25] LABS: Alanine Aminotransferase 19 U/L (0-31); Albumin Level 4.1 g/dL (3.5-5.0); Alkaline Phosphatase 126 U/L (39-117); Anion Gap 14 (12-20); Aspartate Amino Transferase 22 U/L (5-31); Bilirubin Total 0.8 mg/dL (0.0-1.0); Blood Urea Nitrogen 14 mg/dL (9-16); Calcium 9.7 mg/dL (8.4-10.2); Carbon Dioxide 27 mmol/L (22-29); Chloride 107 mmol/L (96-108); Cholesterol 114 mg/dL (<200); Estimated Glomerular Filt Rate > 60; Glucose Fasting 84 mg/dL (60-99); HDL Cholesterol 52 mg/dL (>40); LDL Cholesterol Calculated 51 mg/dL (<100); Potassium 3.6 mmol/L (3.3-5.1); Sodium 144 mmol/L (135-145); Total Protein 7.5 g/dL (6.5-8.0); Triglycerides 59 mg/dL (<150)
== END 2024-05-22 11:00 | disposition home or self-care (01) ==
LOC: HO.LNP 10:59
PROVIDERS: Visit Provider Internal Medicine
DX: D64.9 Anemia, unspecified (principal); E05.00 Thyrotoxicosis with diffuse goiter without thyrotoxic crisis or storm; I10 Essential (primary) hypertension
CPT/HCPCS: 80053; 80061; 81001; 85025

== ENCOUNTER 2024-08-01 09:34 | Outpatient (REF) | payer MEDICARE, OTHER, SELFPAY ==
--- NOTE | ~2024-08-01 | MM_ITS ---
EXAMINATION: MM SCREENING DIGITAL BREAST TOMOSYNTHESIS, BILATERAL CLINICAL INFORMATION: Screening. Asymptomatic. COMPARISON: Mammography: Comparison is made with available priors TECHNIQUE: Digital breast mammography with tomosynthesis is performed in both the craniocaudal and mediolateral oblique views along with computer-aided detection (CAD). FINDINGS: The breasts are heterogeneously dense, which may obscure small masses (ACR BI-RADS breast composition Category c). There are no significant masses, abnormal calcifications, or other abnormalities. MM/MM tomosynthesis screening BI IMPRESSION: No mammographic evidence of malignancy. ASSESSMENT: BI-RADS BI-RADS 1 - Negative RECOMMENDATION: Routine annual mammography screening. 1 year F/U This examination should not preclude the clinical evaluation of a suspicious palpable abnormality. This patient's information was entered into a reminder system with a target due date for their next mammogram. Electronically signed by: Ronit Glover DO 08/13/2024 09:23 AM EDT
== END 2024-08-01 09:35 | disposition home or self-care (01) ==
LOC: HO.MAMMO 09:34
PROVIDERS: PCP Internal Medicine; Visit Provider Internal Medicine
DX: Z12.31 Encounter for screening mammogram for malignant neoplasm of breast (principal)
CPT/HCPCS: 77063; 77067

== ENCOUNTER → 2024-08-01 09:45 | Outpatient (BNV) | payer MEDICARE, OTHER, SELFPAY | PROVIDERS: PCP Internal Medicine; Visit Provider Internal Medicine | DX: Z12.31 Encounter for screening mammogram for malignant neoplasm of breast (principal) | CPT/HCPCS: 77063; 77067 ==

== ENCOUNTER 2024-08-26 12:13 | Outpatient (REF) | payer SELFPAY | END 2024-08-26 12:14 | disposition home or self-care (01) | LOC: HO.HAP 12:13 | PROVIDERS: Visit Provider Internal Medicine | DX: Z46.1 Encounter for fitting and adjustment of hearing aid (principal) | CPT/HCPCS: V5267 ==

== ENCOUNTER 2025-04-02 13:27 | Outpatient (REF) | payer SELFPAY ==
--- OUTSIDE RECORDS SUMMARY | 2025-04-02 13:36 | XMS_ITS ---
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 Name Role Phone William Najera MD Primary Care Provider Byron Mena Unavailable [phone] Allergies Allergen (clinical drug ingredient) Drug/Non Drug Allergy documented on EMR Reaction Allergy Type Onset Date Status Biaxin stomach pain and diarrhea Drug Allergy Active REASON FOR VISIT Patient presents today for anemia Medications Medication SIG (Take, Route, Frequency, Duration) Notes Start Date End Date Status Flonase Allergy Relief 50 MCG/ACT 1 spray in each nostril Nasally Once a day for 30 day(s) Active Vancomycin HCl 500 MG as directed Intravenous every day twice a day Active Omeprazole 20 MG 2 QD Orally Once a day Active Ferrous Sulfate 325 (65 Fe) MG 1 tablet Orally Twice a day Active Atorvastatin Calcium 40 MG 1 tablet Orally Once a day for 30 day(s) Active Vitamin D-3 25 MCG (1000 UT) 1 capsule Orally Once a day for 30 day(s) Active Zinc Picolinate - as directed Active Propylthiouracil 50 MG 1 tablet Orally O NCE a day Active Social History Tobacco Use: Social History Observation Description Date Details (start date - stop date) Former Smoker NA - NA Tobacco Use/Smoking Question Answer Notes Patient is a former smoker How long has it been since you last smoked? > 10 years Alcohol Screen Question Answer Notes Did you have a drink contain ing alcohol in the past year? Yes How often did you have a dri nk containing alcohol in the past year? 2 to 4 times a month (2 points) How many drinks did you have on a typical day when you were drinking in the past year? 1 or 2 drinks (0 point) How often did you have 6 or more drinks on one occasion in the past year? Never (0 point) Points 2 Interpretation Negative Section Notes: Quit smoking over 40 years a go; no sig alcohol Problems Problem Type SNOMED Code ICD Code Onset Dates Problem Status W/U Status Risk Notes Problem [id number] C. difficile diarrhea (A04.72) Active confirmed Vital Signs Temperature 97.5 degrees Fahrenheit 10/24/20 23 Blood pressure systolic 000 mm Hg 10/24/20 23 Blood pressure diastolic 00 mm Hg 023 Height 64 in 10/24/2023 Weight 137 lbs 10/24/2023 BMI 23.51 kg/m2 10/24/2023 Encounters Encounter Location Date Provider Diagnosis [facility] [address] [place] [address] 10/24/2023 Byron Morales Iron deficiency anemia due to chronic blood loss D50.0 and C. difficile diarrhea A04.72 Assessments Encounter Date Diagnosis (ICD Code) Assessment Notes Treatment Notes Treatment Clinical Notes Section Notes 10/24/2023 Iron deficiency anemia due to chronic blood loss (ICD-10 - D50.0) Continue the Iron and omeprazole for the anemia Overall, Anabela appears well. Her anemia has remained stable on her current regimen of iron and omeprazole. I did advise her to continue that long-term. We did review the possibility of her needing a small bowel video capsule study if the anemia was to recur. However, as long as things remain stable in this regard I would be inclined to continue to hold off on the capsule study. In regard to her C. difficile diarrhea, she does seem to be improving on the longer tapering regimen of the vancomycin after her relapse of the C. difficile last month. I did advise her to finish the current course of vancomycin as per the tapering instructions from you. 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 difficile infection is again present. If that does occur I would put her on a very long course of vancomycin with a tapering regimen again or try to get her on a course of Fidaxomicin instead. Overall, if things remain stable in general, Anabela will followup with me on a p.r.n. basis. I did advise her to certainly call if she has any problems or questions I can be of assistance with in the future. She was comfortable with this plan. Thank you again for allowing me to have participated in Anabela's care. Please do not hesitate to contact me if I can be of any further assistance in the future. 10/24/2023 C. difficile diarrhea (ICD-10 - A04.72) If diarrhea relapses do the stool specimen and call me Overall, Anabela appears well. Her anemia has remained stable on her current regimen of iron and omeprazole. I did advise her to continue that long-term. We did review the possibility of her needing a small bowel video capsule study if the anemia was to recur. However, as long as things remain stable in this regard I would be inclined to continue to hold off on the capsule study. In regard to her C. difficile diarrhea, she does seem to be improving on the longer tapering regimen of the vancomycin after her relapse of the C. difficile last month. I did advise her to finish the current course of vancomycin as per the tapering instructions from you. 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 difficile infection is again present. If that does occur I would put her on a very long course of vancomycin with a tapering regimen again or try to get her on a course of Fidaxomicin instead. Overall, if things remain stable in general, Anabela will followup with me on a p.r.n. basis. I did advise her to certainly call if she has any problems or questions I can be of assistance with in the future. She was comfortable with this plan. Thank you again for allowing me to have participated in Anabela's care. Please do not hesitate to contact me if I can be of any further assistance in the future. Plan Of Treatment Treatment Notes Assessment Notes Iron deficiency anemia due t o chronic blood loss Continue the Iron and omeprazole for the anemia C. difficile diarrhea If diarrhea relaps es do the stool specimen and call me Next Appt Details Follow Up: prn, Reason: Progress Notes * LING FAYE LDOB:[birth year] (78 yo F)Acc No.[id number]:10/24/2023 Progress Notes Patient:?LING FAYE Provider:?Byron Nielsen MD :1945???Age:78 Y???Sex:Female D ate:10/24/2023 Address:[address] [place] [address] Pcp:William Najera MD Subjective: * Chief Complaints: * ???Patient presents today fo r anemia * HPI: ???incontinence:? I saw Anabela in followup today in regard to her previous iron deficiency anemia and more recent issues with C. difficile infection. ?Since I last saw Anabela in April she reports that she had been doing well up until an episode of C. difficile infection in the Fall. This was in relation to taking some antibiotics for a pulmonary infection in August. Interestingly, she was using probiotics and yogurt when she was taking those antibiotics for her lung infection. She was treated with 10 days of vancomycin, but her symptoms of diarrhea relapsed and she is now on a tapering regimen of vancomycin. She's currently on Vancomycin twice a day. She has instructions to go down to once a day and then once every other day before stopping it. She currently reports that her diarrhea has resolved and her bowel movements are almost back to normal. She has not noticed any bleeding. She is eating well and denies any nausea nor vomiting. She denies any abdominal pain nor jaundice. ?She has continued on her iron and omeprazole in regard to the anemia. Her most recent blood work in September showed a hemoglobin of 11.6 with MCV of 90, iron of 49, iron saturation of 20%, and ferritin of 58. * ROS:?General/Constitutional:?Change in appetite?denies.?Chills?denies.?Fatigue?admits.?Ophthalmologic:?Comments?all negative.?ENT:?Comments?all negative.?Respiratory:?hemoptysis?denies.?Cough?denies.?Cardiovascular:?Chest pain?denies.?Orthopnea?denies.?Gastrointestinal:?Comments?See HPI for details.?Genitourinary:?Hematuria?denies.?Dysuria?denies.?Musculoskeletal:?Painful joints?denies.?Weakness?denies.?Skin:?Itching?denies.?Rash?denies.?Neurologic:?Headache?denies.?Seizures?denies.?Psychiatric:?Comments?all negative.? * Medical History:? * Surgical History:?Hip replac ements left and right 2011/2012Partial hysterectomy * Hospitalization/Major Diagno stic Procedure:?No Hospitalization History. * Family History:?Father: dece ased.?Mother: .? Unknown--she was adopted. * Social History:?Tobacco Use:?Tobacco Use/Smoking?Patient is a?former smoker,?How long has it been since you last smoked??> 10 years.?Drugs/Alcohol:?Alcohol Screen?Did you have a drink containing alcohol in the past year??Yes,?How often did you have a drink containing alcohol in the past year??2 to 4 times a month (2 points),?How many drinks did you have on a typical day when you were drinking in the past year??1 or 2 drinks (0 point),?How often did you have 6 or more drinks on one occasion in the past year??Never (0 point),?Points?2,?Interpretation?Negative.?Miscellaneous:?Marital status: Lives with significant other. Occupation: retired. ???Quit smoking over 40 years ago; no sig alcohol. * Medications:?TakingVancomyci n HCl 500 MG Solution Reconstituted as directed Intravenous , Notes: every day twice a dayOmeprazole 20 MG Capsule Delayed Release 2 QD Orally Once a dayFerrous Sulfate 325 (65 Fe) MG Tablet 1 tablet Orally Twice a dayAtorvastatin Calcium 40 MG Tablet 1 tablet Orally Once a dayPropylthiouracil 50 MG Tablet 1 tablet Orally ONCE a dayVitamin D-3 25 MCG (1000 UT) Capsule 1 capsule Orally Once a dayZinc Picolinate - Powder as directed Flonase Allergy Relief 50 MCG/ACT Suspension 1 spray in each nostril Nasally Once a dayMedication List reviewed and reconciled with the patientTaking Vancomycin HCl 500 MG Solution Reconstituted as directed Intravenous , Notes: every day twice a dayTaking Omeprazole 20 MG Capsule Delayed Release 2 QD Orally Once a dayTaking Ferrous Sulfate 325 (65 Fe) MG Tablet 1 tablet Orally Twice a dayTaking Atorvastatin Calcium 40 MG Tablet 1 tablet Orally Once a dayTaking Propylthiouracil 50 MG Tablet 1 tablet Orally ONCE a dayTaking Vitamin D-3 25 MCG (1000 UT) Capsule 1 capsule Orally Once a dayTaking Zinc Picolinate - Powder as directed Taking Flonase Allergy Relief 50 MCG/ACT Suspension 1 spray in each nostril Nasally Once a dayMedication List reviewed and reconciled with the patient * Allergies:?Biaxin: stomach p ain and diarrheayes[Allergies Verified] Objective: * Vitals:?Wt: 137 lbs, Ht: 64 in, BMI:23.51 Index, BP: 000/00 mm Hg, Temp: 97.5. * Examination: ???General Examination: ?GENERAL APPEARANCE:?pleasant, pale, well nourished, well developed, in no acute distress.?EYES:?sclera non-icteric.?ORAL CAVITY:?mucosa moist.?NECK/THYROID:?no cervical lymphadenopathy, neck supple.?SKIN:?pale, nonjaundiced, no spider angiomata.?HEART:?S1, S2 normal.?LUNGS:?clear to auscultation bilaterally.?ABDOMEN:?normal bowel sounds, no guarding or rigidity, no guarding or rigidity, no masses palpable, soft, nontender, nondistended.?EXTREMITIES:?no edema.?NEUROLOGIC:?alert and oriented.? Assessment: * Assessment: 1.?Iron deficiency anemia du e to chronic blood loss - D50.0 (Primary)?2.?C. difficile diarrhea - A04.72? Overall, Anabela appears well. H er anemia has remained stable on her current regimen of iron and omeprazole. I did advise her to continue that long-term. We did review the possibility of her needing a small bowel video capsule study if the anemia was to recur. However, as long as things remain stable in this regard I would be inclined to continue to hold off on the capsule study. In regard to her C. difficile diarrhea, she does seem to be improving on the longer tapering regimen of the vancomycin after her relapse of the C. difficile last month. I did advise her to finish the current course of vancomycin as per the tapering instructions from you. 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 difficile infection is again present. If that does occur I would put her on a very long course of vancomycin with a tapering regimen again or try to get her on a course of Fidaxomicin instead. Overall, if things remain stable in general, Anabela will followup with me on a p.r.n. basis. I did advise her to certainly call if she has any problems or questions I can be of assistance with in the future. She was comfortable with this plan. Thank you again for allowing me to have participated in Anabela's care. Please do not hesitate to contact me if I can be of any further assistance in the future. Plan: * Treatment: 2.?C. difficile diarrhea? Notes: If diarrhea relapses do the stool specimen and call me.?? * Procedure Codes:?1036F TOBAC CO [id number] BP SCR NOT PRFRM REC REASON NOS * Preventive Medicine:? ??Urinary Incontinence:?Urinary Incontinence?Assessment:?Absent,?Plan of care documented:?No, reason not specified.? * Follow Up:?prn * * Sign off status: Completed true * Provider:?Byron Nielsen MD Date:? 023 Generated for Jhony pepe/Barrington/eTransmitting on:?04/02/2025 01:35 PM EDT History and Physical Notes * HPI (History of Present Illness) Category Sub-Category Detail Notes Category Not es incontinence I saw Anabela in followup today in regard to her previous iron deficiency anemia and more recent issues with C. difficile infection. Since I last saw Anabela in April she reports that she had been doing well up until an episode of C. difficile infection in the Fall. This was in relation to taking some antibiotics for a pulmonary infection in August. Interestingly, she was using probiotics and yogurt when she was taking those antibiotics for her lung infection. She was treated with 10 days of vancomycin, but her symptoms of diarrhea relapsed and she is now on a tapering regimen of vancomycin. She's currently on Vancomycin twice a day. She has instructions to go down to once a day and then once every other day before stopping it. She currently reports that her diarrhea has resolved and her bowel movements are almost back to normal. She has not noticed any bleeding. She is eating well and denies any nausea nor vomiting. She denies any abdominal pain nor jaundice. She has continued on her iron and omeprazole in regard to the anemia. Her most recent blood work in September showed a hemoglobin of 11.6 with MCV of 90, iron of 49, iron saturation of 20%, and ferritin of 58. Examination Category Sub-Category Detail Notes Category Not es General Examination GENERAL APPEARANCE: pleasant , pale, well nourished, well developed, in no acute distress HEAD: EYES: sclera non-icteric EARS: NOSE: THROAT: NECK/THYROID: no cervical lymphade nopathy, neck supple HEART: S1, S2 normal CHEST: LUNGS: clear to auscultatio n bilaterally ABDOMEN: normal bowel sounds, no guarding or rigidity, no guarding or rigidity, no masses palpable, soft, nontender, nondistended NEUROLOGIC: alert and oriented SKIN: pale, nonjaundiced, no spider angiomata EXTREMITIES: no edema PERIPHERAL PULSES: BACK: BREASTS: MUSCULOSKELETAL: MALE GENITOURINARY: LYMPH NODES: RECTAL EXAM: FEMALE GENITOURINARY: ORAL CAVITY: mucosa moist
== END 2025-04-02 13:28 | disposition home or self-care (01) ==
LOC: HO.HAP 13:27
PROVIDERS: Visit Provider Internal Medicine
DX: Z46.1 Encounter for fitting and adjustment of hearing aid (principal); H90.3 Sensorineural hearing loss, bilateral
CPT/HCPCS: V5267

== ENCOUNTER 2025-05-01 13:10 | Outpatient (REF) | payer MEDICARE, OTHER, SELFPAY ==
--- OUTSIDE RECORDS SUMMARY | 2024-11-14 06:30 | XMS_ITS ---
Author Organization William Najera MD Address [address] [place] [phone] Care Team Providers Care Glue Bone Crusher Name Role Phone William Najera Primary Care [...] Problem Status W/U Status Risk Notes Problem 966053895 Pulmonary nodule (R91.1) Active confirmed Problem 26687519 Lymphocytosis (symptomatic) (D72.820) Active confirmed Problem 243500729 Pure hypercholesterolem ia, unspecified (E78.00) Active confirmed Vital Signs Blood pressure systolic 132 mm Hg 11/14/19 25 Blood pressure diastolic 70 mm Hg 025 Height 66 in 11/14/2024 Weight 139 lbs 11/14/2024 BMI 22.43 kg/m2 11/14/2024 weight is down 3 pounds [facility] 05-29-24 Encounters Encounter Location Date Provider Diagnosis William Najera MD [address] [place] [address] [place] [phone] 11/14/2024 William Najera Pulmonary nodule R91.1 ; Graves disease E05.00 ; Lymphocytosis (symptomatic) D72.820 and Pure hypercholesterolemia, unspecified E78.00 Assessments Encounter Date Diagnosis (ICD Code) Assessment Notes Treatment Notes Treatment Clinical Notes Section Notes 11/14/2024 Pulmonary nodule (ICD-10 - R91.1) will repeat ct in 6 months and is going to see dr roque in spring her tow feeder/ order put in future folder 11/14/2024 Graves disease (ICD-10 - E05.00) is considering getting thyroid removed 11/14/2024 Lymphocytosis (symptomatic) (ICD-10 - D72.820) 11/14/2024 Pure hypercholesterolem ia, unspecified (ICD-10 - E78.00) Plan Of Treatment Treatment Notes Assessment Notes Pulmonary nodule will repeat ct in 6 months and is going to see dr roque in spring her tow feeder/ order put in future folder Graves disease is considering getti ng thyroid removed Future Test Test Name Order Date CT chest wo con 05/14/2025 Next Appt Details Follow Up: 6 Months, Reason: Provider Name:William lama, 05/26/2025 07:00:00 AM, [address] [place] [address] Drive, [address], [place], [place], [phone], Provider Name:William Enciso ier, 06/02/2025 10:30:00 AM, [address], [address], [place], [phone], Progress Notes * NEYDAShanikaan LDOB:[birth year] (79 yo F)Acc No.[id number]:11/14/2024 Progress Notes Patient: Micheal alyceMarielle alejandro Provider: Edenilson Najera MD :1945 A ge:79 Y S ex:Female Date:11/14/2024 Address:[address] [place] [address], [id number] Subjective: * Chief Complaints: * 6 MO [...] 11/14/2024 Generated for Jhony pepe/Barrington/eTransmitting on: 0 05/01/2025 01:42 PM EDT History and Physical Notes * [...]
[2025-05-01 13:12] LABS: MANUAL DIFF FLAG NO
[2025-05-01 13:19] LABS: Basophils Percent Auto 0.8 % (0-2); Eosinophils Absolute Auto 0.2 X10*3/uL (0.0-0.4); Eosinophils Percent Auto 3.1 % (0-4); Hematocrit 28.7 % (37.0-47.0); Hemoglobin 9.4 g/dl (12.0-16.0); Imm Gran Abs Auto 0.01 X10*3/uL (0.00-0.03); Imm Gran Pct Auto 0.2 % (0.0-0.4); Lymphocytes Absolute Auto 1.4 X10*3/uL (1.2-4.9); Lymphocytes Percent Auto 26.6 % (20-40); Mean Corpuscular HGB Conc 32.8 g/dl (31.0-35.0); Mean Corpuscular Hemoglobin 28.5 pg (27.0-33.0); Mean Platelet Volume 10.1 fL (9.4-12.3); Monocytes Absolute Auto 0.5 X10*3/uL (0.1-1.2); Monocytes Percent Auto 10.6 % (2-11); Neutrophils Percent Auto 58.7 % (45-73); Platelet Count 200 X10*3/uL (160-400); Red Cell Distribution Width 13.5 % (11.0-16.0); White Blood Count 5.1 X10*3/uL (4.8-10.8)
== END 2025-05-01 13:11 | disposition home or self-care (01) ==
LOC: HO.LNP 13:10
PROVIDERS: Visit Provider Internal Medicine
DX: K62.5 Hemorrhage of anus and rectum (principal)
CPT/HCPCS: 85025

== ENCOUNTER 2025-05-04 12:51 | Emergency (ER) | payer MEDICARE, OTHER, SELFPAY ==
--- OUTSIDE RECORDS SUMMARY | 2024-11-14 06:30 | XMS_ITS ---
Author Organization William Najera MD Address [address] [place] [phone] Care Team Providers Care Store Person Name Role Phone William Najera Primary Care Provider [phone] Allergies Allergen (clinical drug ingredient) Drug/Non Drug [...] Problem Status W/U Status Risk Notes Problem 303426665 Pulmonary nodule (R91.1) Active confirmed Problem 07828380 Lymphocytosis (symptomatic) (D72.820) Active confirmed Problem 079054863 Pure hypercholesterolem ia, unspecified (E78.00) Active confirmed Vital Signs Blood pressure systolic 132 mm Hg 11/14/19 25 Blood pressure diastolic 70 mm Hg 025 Height 66 in 11/14/2024 Weight 139 lbs 11/14/2024 BMI 22.43 kg/m2 11/14/2024 weight is down 3 pounds [facility] 05-29-24 Encounters Encounter Location Date Provider Diagnosis William Najera MD [address] [place] [address] [place] [phone] 11/14/2024 William Najera Pulmonary nodule R91.1 ; Graves disease E05.00 ; Lymphocytosis (symptomatic) D72.820 and Pure hypercholesterolemia, unspecified E78.00 Assessments Encounter Date Diagnosis (ICD Code) Assessment Notes Treatment Notes Treatment Clinical Notes Section Notes 11/14/2024 Pulmonary nodule (ICD-10 - R91.1) will repeat ct in 6 months and is going to see dr roque in spring her pressure washer/ order put in future folder 11/14/2024 Graves disease (ICD-10 - E05.00) is considering getting thyroid removed 11/14/2024 Lymphocytosis (symptomatic) (ICD-10 - D72.820) 11/14/2024 Pure hypercholesterolem ia, unspecified (ICD-10 - E78.00) Plan Of Treatment Treatment Notes Assessment Notes Pulmonary nodule will repeat ct in 6 months and is going to see dr roque in spring her pressure washer/ order put in future folder Graves disease is considering getti ng thyroid removed Future Test Test Name Order Date CT chest wo con 05/14/2025 Next Appt Details Follow Up: 6 Months, Reason: Provider Name:William lama, 05/26/2025 07:00:00 AM, [address] [place] [address] Drive, [address], [place], [place], [phone], Provider Name:William Enciso ier, 06/02/2025 10:30:00 AM, [address], [address], [place], [phone], Progress Notes * NEYDAShanikaan LDOB:[birth year] (79 yo F)Acc No.[id number]:11/14/2024 Progress Notes Patient: Micheal alyceMarielle alejandro Provider: Edenilson Najera MD :1945 A ge:79 Y S ex:Female Date:11/14/2024 Address:[address] [place] [address], [id number] Subjective: * Chief Complaints: * 6 MO [...] 11/14/2024 Generated for Jhony pepe/Barrington/eTransmitting on: 0 05/04/2025 06:10 PM EDT History and Physical Notes * [...]
[2025-05-04 13:35] VITALS: BP 142/74; PULSE 70; RESP 16; TEMP 37; O2SAT 99; BMI 24.0
--- NOTE | 2025-05-04 13:36 | ED_ITS ---
HPI - General Adult General Chief complaint: GI Bleed Stated complaint: blood in stools Time Seen by Provider: 05/04/25 18:25 History of Present Illness ED Provider: Emile Sim MD HPI narrative: This is a pleasant 79-year-old female who came in for intermittent rectal bleeding. The patient about 2-1/2 years ago had an episode of significant rectal bleeding hemoglobin was as low as 5.5 she had upper and lower endoscopy without clear etiology and has since then been well. She noticed about 4-5 days ago she had a few bowel movements that had bright red blood mixed in. No rapid hemorrhage it was only when she felt the need to move her bowels. Sunday that was no bowel movement this was 2 days ago. Yesterday she had a small but normal size bowel movement that she felt was slightly darker brown and covered with a scarlet material. No significant or rapid hemorrhage since that time denies abdominal pain no blood thinners Related Data Home Medications ?Medication ?Instructions ?Recorded ?Confirmed atorvastatin 40 mg tablet 40 mg PO DAILY 03/15/2305/06 propylthiouracil 50 mg tablet 50 mg PO DAILY 05/31/23 05/31/23 Previous Rx's ?Medication ?Instructions ?Recorded ferrous sulfate 325 mg (65 mg 325 mg PO DAILY #90 tabs 01/12/23 iron) tablet pantoprazole 40 mg granules 40 mg PO DAILY #30 ea 01/03 delayed-release for susp in packet (Protonix) vancomycin 125 mg capsule 125 mg PO QID 10 days #40 ca ps 09/07/23 Allergies Allergy/AdvReac Type Severity Reaction Status Date / Time clarithromycin (From Biaxin) AdvReac Stomach Verified 05/04/25 13:40 Upset PMFSH Past Medical History Medical History (Updated 05/04/25 @ 20:06 by Emile Sim MD) Carotid artery stenosis Atherosclerotic cardiovascular disease Hx of osteoporosis AYALA (iron deficiency anemia) HLD (hyperlipidemia) GERD (gastroesophageal reflux disease) Graves disease Renal stones Bronchiectasis Surgical History Hx of colonoscopy Hx of esophagogastroduodenoscopy S/P hip replacement S/P partial hysterectomy Social History Social History Alcohol intake: current Alcohol intake frequency: a few times a month Alcohol type: wine and hard liquor Patient Tobacco Use Status: Former Tobacco user Advance Directives: No Advance Directives Information Provided: No Do you have a plan to hurt others: No Plan Physical Exam ED Vital Signs: Vital Signs - 24 hr 05/04/25 13:35 05/04/25 17:31 05/04/25 17:55 Temperature 98.6 F 97.6 F 97.6 F Pulse Rate 70 91 77 Respiratory Rate 16 18 18 Blood Pressure 142/74 H 157/80 H 163/88 H Pulse Oximetry 99 98 100 Oxygen Delivery Method Room Air Room Air Room Air 05/04/25 18:43 05/04/25 19:29 05/04/25 20:23 Temperature 98.2 F 98.0 F 98.0 F Pulse Rate 73 67 67 Respiratory Rate 18 12 12 Blood Pressure 163/88 H 157/100 H 157/100 H Pulse Oximetry 98 98 98 Oxygen Delivery Method Room Air Room Air Room Air BMI result Body Mass Index 24.0 Const Other: EXAM: Gen: Alert, awake, well appearing, well hydrated. Head: Atraumatic Eyes: Anicteric, Normal conjunctiva. ENT: Moist mucosa, no pallor. ? Neck: Supple. Skin: ?No observable rash or bruising on exposed or examined skin Respiratory: Breathing comfortably, No distress.Clear to auscultation bilaterally, symmetric chest expansion, No wheeze, rales, ronchi. Cardiovascular: Regular rate and rhythm. No murmurs or rub. Well perfused periphery, warm extremities. No edema. ? Abdominal: No FOCAL TENDERNESS. Soft, no objective distension. No palpable masses or obvious organomegaly. ?No guarding, no rebound tenderness or other peritoneal findings. : No flank tenderness. Neuro: Alert. Gross movement of all extremities intact. ? Psych: Calm. Cooperative. MSK: No grossly visible deformity. Vital signs: See flowsheet Course Course Course Narrative: RME performed by Cate Tyler PA-C. Patient is a 79 year old assigned female at presenting to the emergency department with anemia. Patient states that she has been having loose stools with blood. Patient states that her doctor made her come in [facility]. Detailed physical exam and review of systems are deferred to the director of clinical services. Labs ordered. Patient placed back in the waiting room pending room availability and results. Medications Administered Discontinued Medications Generic Name Dose Route Start Last Admin Trade Name Freq PRN Reason Stop Dose Admin Pantoprazole Sodium 40 mg 05/04/25 18:38 05/04/25 19:24 Pantoprazole Sodium 40 Mg/10 Ml Vial IVPUSH 05/04/25 18:39 40 mg ONCE ONE Administration Medical Decision Making Medical Decision Making [facility] Narrative: 79-year-old female with history of rectal bleeding. Not anticoagulated. Hemodynamics stable. Guaiac-negative stool. No rapid or repeated bright red blood per rectum today in the emergency department. Pain-free no tenderness on exam looks well clinically. Hemoglobin 8 0.6-8.3 after 5 hours repeat. Lengthy shared decision-making discussion with the patient. At this point given her hemodynamic stability lack of significant drop in hemoglobin it is reasonable to discharge the patient home with very strict return precautions she is okay with this. She will call her GI doctor tomorrow. Lab Data 05/04/25 19:50 05/04/25 13:52 Labs: Lab Results 05/04/25 05/04/25 05/04/25 Range/Units 13:52 18:38 19:50 WBC 5.9 5.3 (4.8-10.8) X10*3/uL RBC 3.03 L 2.92 L (4.20-5.50) X10*6/uL Hgb 8.6 L 8.3 L (12.0-16.0) g/dl Hct 26.5 L 25.2 L (37.0-47.0) % MCV 87.5 86.3 (80.0-98.0) fL MCH 28.4 28.4 (27.0-33.0) pg MCHC 32.5 32.9 (31.0-35.0) g/dl RDW 13.8 13.8 (11.0-16.0) % Plt Count 205 188 (160-400) X10*3/uL MPV 9.3 L 9.1 L (9.4-12.3) fL Immature Gran % (Auto) 0.2 (0.0-0.4) % Neut % (Auto) 64.1 (45-73) % Lymph % (Auto) 24.6 (20-40) % Henry % (Auto) 8.5 (2-11) % Eos % (Auto) 2.1 (0-4) % Baso % (Auto) 0.5 (0-2) % Lymph # (Auto) 1.4 (1.2-4.9) X10*3/uL Henry # (Auto) 0.5 (0.1-1.2) X10*3/uL Eos # (Auto) 0.1 (0.0-0.4) X10*3/uL Baso # (Auto) 0.0 (0.0-0.2) X10*3/uL Abs Immat Gran (auto) 0.01 (0.00-0.03) X10*3/uL Absolute Neuts (auto) 3.8 (2.0-8.3) x10*3/uL Absolute Nucleated RBC 0.000 0.000 (0.0-0.012) X10*3/uL Nucleated RBC % (auto) 0.0 0.0 (0.0-0.2) /100WBC PT 11.9 (10.9-12.4) SEC INR 1.0 (0.9-1.1) Sodium 145 (135-145) mmol/L Potassium 3.6 (3.3-5.1) mmol/L Chloride 112 H (96-108) mmol/L Carbon Dioxide 26 (22-29) mmol/L Anion Gap 11 L (12-20) BUN 20 H (9-16) mg/dL Creatinine 0.74 (0.5-1.4) mg/dL Estim Creat Clear Calc 54.1 Estimated GFR > 60 Random Glucose 94 (60-115) mg/dL Calcium 8.7 D (8.4-10.2) mg/dL Magnesium 1.9 (1.6-2.6) mg/dL Total Bilirubin 0.4 (0.0-1.0) mg/dL AST 27 (5-31) U/L ALT 22 (0-31) U/L Alkaline Phosphatase 102 (39-117) U/L Total Protein 6.8 (6.5-8.0) g/dL Albumin 4.0 (3.5-5.0) g/dL Stool Occult Blood POSITIVE (NEGATIVE) Discharge Plan Discharge Clinical Impression: Rectal bleed Patient Disposition: Home, Self-Care Instructions: Gastrointestinal Bleeding (ED) Additional Instructions: _ DISCHARGE DIAGNOSES: Rectal bleeding HISTORY OF PRESENTATION: ?Intermittent rectal bleeding since Sunday. EMERGENCY DEPARTMENT COURSE,TESTS, TREATMENTS: While in the ED today you were stable. We monitored your vital signs and repeated blood work. Your initial hemoglobin or blood count was 8.6 he had only dropped to 8.3 a very minimal likely negligible drop over 5 hour. DISCHARGE MEDICATIONS: ?[We have made no changes to your regular medication regimen] FOLLOW-UP: ?Call your primary or general physician soon as possible to discuss your symptoms, your ED visit and to discuss follow up plans Call your GI doctor 1st thing tomorrow morning to discuss your follow up. You can tell him that your hemoglobin dropped from 9.4-8.6 over 3 days and while in the ER only dropped from 8.6-8.3. You had negative guaiac stool which is microscopic blood in the stool while you were here INSTRUCTIONS ?& RETURN PRECAUTIONS: If any symptoms change first call your primary physician, if it is after-hours your primary doctors office should have a provider water pumping station engineer you can speak with. If the symptoms are severe or very concerning to you then call 911 or return to the ED. Return back to the emergency department for repeated or heavy rectal bleeding, severe abdominal or rectal pain, feel like you are going to pass out or lightheadedness or dizziness Emile Sim MD Emergency Physician [facility] Prescriptions: No Action vancomycin 125 mg capsule 125 mg PO QID 10 Days Qty: 40 0RF ferrous sulfate 325 mg (65 mg iron) tablet 325 mg PO DAILY Qty: 90 0RF pantoprazole [Protonix] [address] for susp in packet 40 mg PO DAILY Qty: 30 0RF atorvastatin 40 mg tablet 40 mg PO DAILY propylthiouracil 50 mg tablet 50 mg PO DAILY Interventions: ED Discharge Assessment Last Done: 05/04/25 20:23 Discharge Date/Time: 05/04/25 20:23 Print Language: French
[2025-05-04 14:03] LABS: MANUAL DIFF FLAG NO
[2025-05-04 14:05] LABS: Basophils Percent Auto 0.5 % (0-2); Eosinophils Absolute Auto 0.1 X10*3/uL (0.0-0.4); Eosinophils Percent Auto 2.1 % (0-4); Hematocrit 26.5 % (37.0-47.0); Hemoglobin 8.6 g/dl (12.0-16.0); Imm Gran Abs Auto 0.01 X10*3/uL (0.00-0.03); Imm Gran Pct Auto 0.2 % (0.0-0.4); Lymphocytes Absolute Auto 1.4 X10*3/uL (1.2-4.9); Lymphocytes Percent Auto 24.6 % (20-40); Mean Corpuscular HGB Conc 32.5 g/dl (31.0-35.0); Mean Corpuscular Hemoglobin 28.4 pg (27.0-33.0); Mean Corpuscular Volume 87.5 fL (80.0-98.0); Mean Platelet Volume 9.3 fL (9.4-12.3); Monocytes Absolute Auto 0.5 X10*3/uL (0.1-1.2); Monocytes Percent Auto 8.5 % (2-11); Neutrophils Absolute Auto 3.8 x10*3/uL (2.0-8.3); Neutrophils Percent Auto 64.1 % (45-73); Platelet Count 205 X10*3/uL (160-400); Red Blood Count 3.03 X10*6/uL (4.20-5.50); Red Cell Distribution Width 13.8 % (11.0-16.0); White Blood Count 5.9 X10*3/uL (4.8-10.8)
[2025-05-04 14:13] LABS: Prothrombin Time 11.9 SEC (10.9-12.4)
[2025-05-04 14:19] LABS: Alanine Aminotransferase 22 U/L (0-31); Alkaline Phosphatase 102 U/L (39-117); Anion Gap 11 (12-20); Aspartate Amino Transferase 27 U/L (5-31); Bilirubin Total 0.4 mg/dL (0.0-1.0); Blood Urea Nitrogen 20 mg/dL (9-16); Calcium 8.7 mg/dL (8.4-10.2); Carbon Dioxide 26 mmol/L (22-29); Chloride 112 mmol/L (96-108); Creatinine Clr Calc Pharmacy 54.1; Estimated Glomerular Filt Rate > 60; Glucose Random 94 mg/dL (60-115); Magnesium 1.9 mg/dL (1.6-2.6); Potassium 3.6 mmol/L (3.3-5.1); Sodium 145 mmol/L (135-145); Total Protein 6.8 g/dL (6.5-8.0)
[2025-05-04 17:31] VITALS: BP 157/80; PULSE 91; RESP 18; TEMP 36.4; O2SAT 98
[2025-05-04 17:55] VITALS: BP 163/88; PULSE 77; RESP 18; TEMP 36.4; O2SAT 100
--- OUTSIDE RECORDS SUMMARY | 2025-05-04 18:10 | XMS_ITS | Patient Health Record ---
Author Organization [facility] Address [address] [place] [address] Care Team Providers Care Drill Press Operator For Metal Name Role Phone William Najera MD Primary Care Provider Vilma Daugherty Unavailable [phone] Allergies Allergen (clinical drug ingredient) Drug/Non Drug Allergy documented on EMR Reaction Allergy Type Onset Date Status Strong Antibiotics (uncoded) Unknown Allergy Active Adhesive Unknown Allergy Active Reason For Referral No Information Medications Medication SIG (Take, Route, Fr equency, Duration) Notes Start Date End Date Status Propylthiouracil Act trae Vitamin D3 Active Evenity Active Omeprazole Active Atorvastatin Calcium Active Social History Tobacco Use: Social History Observation Description Date Details (start date - stop date) Former Smoker NA - NA Tobacco use other than smoking: Question Answer Notes Are you an other tobacco user? No Tobacco Control (Standard) Question Answer Notes Tobacco use: Former smoker Additional Findings: Tobacco non-user Current no nsmoker AUDIT-C (Standard) Question Answer Notes Did you have a drink contain ing alcohol in the past year? Yes How often did you have a dri nk containing alcohol in the past year? Never (0 point) How many drinks did you have on a typical day when you were drinking in the past year? 1 or 2 drinks (0 point) How often did you have six o r more drinks on one occasion in the past year? Never (0 point) Points 0 Interpretation Negative Problems Problem Type SNOMED Code ICD Code Onset Dates Problem Status W/U Status Risk Notes Problem Plantar wart (22816473) Plantar wart (B07.0) Active confirmed Vital Signs Blood pressure diastolic 60 mm Hg 02/19/2025 Height 5 ft 4inch in 02/19/2025 Blood pressure systolic 130 mm Hg 02/19/2025 Weight 135 lbs 02/19/2025 BMI 23.17 kg/m2 02/19/2025 Encounters Encounter Location Date Provider Diagnosis [address] [phone] 02/19/2025 Vilma Hussein Right foot pain M79.671 and Plantar wart B07.[address] [facility] [address] 01/07/2025 Vilma Jovita Assessments Encounter Date Diagnosis (ICD Code) Assessment Notes Treatment Notes Treatment Clinical Notes Section Notes 02/19/2025 Plantar wart (ICD-10 - B07.0) 02/19/2025 Right foot pain (ICD-10 - M79.671) Plan Of Treatment No Information Insurance Providers Payer Name Payer Address Payer Phone Subscriber Number Group Number Insured Name Patient Relationship to Insured Coverage Start Date Coverage End Date [employer] [address] [place] [address] [id number] Marielle Valdivia Self - patient is the insured [address] [facility] Medicare-309 95 [address] [address] [place] [address] [id number] Marielle Valdivia Self - patient is the insured Medical (General) History Medical History History ICD Code Anemia Back,Hip,and Knee pain Arthritis Lung disease Osteoporosis Reflux ( GERD) Measles Chicken pox Joint implants/screws Transfusions Cataracts Surgical History Surgery Date(Month/Year) [facility] Left hip 2011 [facility] Right hip 2013
[2025-05-04 18:43] VITALS: BP 163/88; PULSE 73; RESP 18; TEMP 36.8; O2SAT 98
[2025-05-04 18:48] LABS: OBS Int Ctl Valid YES; OBS1 POSITIVE (NEGATIVE)
--- NOTE | 2025-05-04 18:54 | PC.NURSE ---
IV line placed and pt placed on monitor at this time. Report given to oncoming nurse
[2025-05-04] MEDS: Pantoprazole Sodium 40 MG/10 ML VIAL IVPUSH (19:24)
[2025-05-04 19:29] VITALS: BP 157/100; PULSE 67; RESP 12; TEMP 36.7; O2SAT 98
[2025-05-04 20:00] LABS: Hematocrit 25.2 % (37.0-47.0); Hemoglobin 8.3 g/dl (12.0-16.0); Mean Corpuscular HGB Conc 32.9 g/dl (31.0-35.0); Mean Corpuscular Hemoglobin 28.4 pg (27.0-33.0); Mean Corpuscular Volume 86.3 fL (80.0-98.0); Mean Platelet Volume 9.1 fL (9.4-12.3); Platelet Count 188 X10*3/uL (160-400); Red Blood Count 2.92 X10*6/uL (4.20-5.50); Red Cell Distribution Width 13.8 % (11.0-16.0); White Blood Count 5.3 X10*3/uL (4.8-10.8)
[2025-05-04 20:23] VITALS: BP 157/100; PULSE 67; RESP 12; TEMP 36.7; O2SAT 98
== END 2025-05-04 20:23 | disposition home or self-care (01) ==
PROVIDERS: Physician Assistant Medical; Emergency Provider Emergency Medicine; PCP Internal Medicine
DX: K62.5 Hemorrhage of anus and rectum (principal); E78.5 Hyperlipidemia, unspecified; Z79.02 Long term (current) use of antithrombotics/antiplatelets; Z79.899 Other long term (current) drug therapy
CPT/HCPCS: 36415; 80053; 82272; 83735; 85025; 85027; 85610; 96374; 99284; J2470

== ENCOUNTER 2025-05-05 14:26 | Outpatient (REF) | payer MEDICARE, OTHER, SELFPAY ==
--- OUTSIDE RECORDS SUMMARY | 2024-11-14 06:30 | XMS_ITS ---
Author Organization William Najera MD Address [address] [place] [phone] Care Team Providers Care Hvac Design Mechanical Engineer Name Role Phone William Najera Primary Care Provider Allergies Allergen (clinical drug ingredient) Drug/Non Drug Allergy documented on EMR Reaction Allergy Type Onset Date Status Biaxin severe diarrhea Drug Allergy A ctive REASON FOR VISIT 6 MO F/U Medications Medication SIG (Take, Route, Frequency, Duration) Notes Start Date End Date Status Tessalon Perles 100 MG 1 capsule as need ed Orally Three times a day for 10 days 07/29/2019 Not-Taking Vitamin D 50 MCG (1999) 1 tablet Oral ly Once a day Active Atorvastatin Calcium 40 MG TAKE 1 TABLET BY MOUTH EVERY DAY for 90 Active Ferrous Sulfate 325 (65 Fe) MG 1 tablet Orally twice a day Active Metoprolol Tartrate 25 MG 1 tablet with food Orally Twice a day for 30 day(s) Active Propylthiouracil 50 MG 1 tablet Orally o nce a day Active One Daily For Women Orally Active Omeprazole 20 MG 2 capsule 30 minutes before morning meal Orally Once a day Active Probiotic Orally Active Problems Problem Type SNOMED Code ICD Code Onset Dates Problem Status W/U Status Risk Notes Problem 429151290 Pulmonary nodule (R91.1) Active confirmed Problem 85541997 Lymphocytosis (symptomatic) (D72.820) Active confirmed Problem 342180185 Pure hypercholesterolem ia, unspecified (E78.00) Active confirmed Vital Signs Blood pressure systolic 132 mm Hg 11/14/19 25 Blood pressure diastolic 70 mm Hg 025 Height 66 in 11/14/2024 Weight 139 lbs 11/14/2024 BMI 22.43 kg/m2 11/14/2024 weight is down 3 pounds [facility] 05-29-24 Encounters Encounter Location Date Provider Diagnosis William Najera MD [address] [place] [address] [place] [phone] 11/14/2024 William Najera Pulmonary nodule R91.1 ; Graves disease E05.00 ; Lymphocytosis (symptomatic) D72.820 and Pure hypercholesterolemia, unspecified E78.00 Assessments Encounter Date Diagnosis (ICD Code) Assessment Notes Treatment Notes Treatment Clinical Notes Section Notes 11/14/2024 Pulmonary nodule (ICD-10 - R91.1) will repeat ct in 6 months and is going to see dr roque in spring her wastewater engineer/ order put in future folder 11/14/2024 Graves disease (ICD-10 - E05.00) is considering getting thyroid removed 11/14/2024 Lymphocytosis (symptomatic) (ICD-10 - D72.820) 11/14/2024 Pure hypercholesterolem ia, unspecified (ICD-10 - E78.00) Plan Of Treatment Treatment Notes Assessment Notes Pulmonary nodule will repeat ct in 6 months and is going to see dr roque in spring her wastewater engineer/ order put in future folder Graves disease is considering getti ng thyroid removed Future Test Test Name Order Date CT chest wo con 05/14/2025 Next Appt Details Follow Up: 6 Months, Reason: Provider Name:William lama, 05/26/2025 07:00:00 AM, [address] [place] [address] Drive, [address], [place], [place], [phone], Provider Name:William Enciso ier, 06/02/2025 10:30:00 AM, [address], [address], [place], [phone], Progress Notes * NEYDAShanikaan LDOB:[birth year] (79 yo F)Acc No.[id number]:11/14/2024 Progress Notes Patient: Micheal alyceMarielle alejandro Provider: Edenilson Najera MD :1945 A ge:79 Y S ex:Female Date:11/14/2024 Address:[address] [place] [address], [id number] Subjective: * Chief Complaints: * 6 MO F/U * HPI: S ymptom(s): patientis a 79yo female here for 6month follow up visit, has pain on bottom/ here for follow up of ct chest. sees dr roque for pulmonary. * ROS: G eneral/Constitutional: Denies C hills. D enies F atigue. D enies F ever. D enies H eadache. E NT: Patient denies d ecreased sense of smell , any loss of taste , sore throat. D enies S ore throat. R espiratory: Denies C ough. D enies S hortness of breath at rest. D enies S hortness of breath with exertion. G astrointestinal: Denies D iarrhea. D enies N ausea. M usculoskeletal: Patient denies m uscle aches. P eripheral Vascular: Patient denies r ed and blue toes. P odiatric: Patient complaining of c allous right foot. ? * Medical History: * Surgical History: * Hospitalization/Major Diagno stic Procedure: * Medications: T akingPropylthiouracil 50 MG Tablet 1 tablet Orally once a dayOne Daily For Women Tablet Orally Omeprazole 20 MG Capsule Delayed Release 2 capsule 30 minutes before morning meal Orally Once a dayProbiotic Capsule Orally Vitamin D 50 MCG (2000 UT) Tablet 1 tablet Orally Once a dayAtorvastatin Calcium 40 MG Tablet TAKE 1 TABLET BY MOUTH EVERY DAY Ferrous Sulfate 325 (65 Fe) MG Tablet 1 tablet Orally twice a dayMetoprolol Tartrate 25 MG Tablet 1 tablet with food Orally Twice a dayTaking Propylthiouracil 50 MG Tablet 1 tablet Orally once a dayTaking One Daily For Women Tablet Orally Taking Omeprazole 20 MG Capsule Delayed Release 2 capsule 30 minutes before morning meal Orally Once a dayTaking Probiotic Capsule Orally Taking Vitamin D 50 MCG (2000 UT) Tablet 1 tablet Orally Once a dayTaking Atorvastatin Calcium 40 MG Tablet TAKE 1 TABLET BY MOUTH EVERY DAY Taking Ferrous Sulfate 325 (65 Fe) MG Tablet 1 tablet Orally twice a dayTaking Metoprolol Tartrate 25 MG Tablet 1 tablet with food Orally Twice a dayNot-Taking/PRNTessalon Perles 100 MG Capsule 1 capsule as needed Orally Three times a dayMedication List reviewed and reconciled with the patientNot-Taking/PRN Tessalon Perles 100 MG Capsule 1 capsule as needed Orally Three times a dayMedication List reviewed and reconciled with the patient * Allergies: B iaxin: severe diarrheayes[Allergies Verified] Objective: * Vitals: H t: 66, Wt:139, BMI:22.43, BP:132/70 weight is down 3 pounds since 05-29-24. * Examination: G eneral Examination: GENERAL APPEARANCE: a lert, well hydrated, in no distress.? HEAD: n ormocephalic. SKIN: g ood turgor. HEART: n o murmurs, rubs, gallops , regular rate and rhythm. LUNGS: n o wheezes, rales, rhonchi , good air movement , clear to auscultation bilaterally. EXTREMITIES: w ith a callous on foot. ? Assessment: * Assessment: 1. P ulmonary nodule - R91.1 (Primary) 2 . G raves disease - E05.00 3 . L ymphocytosis (symptomatic) - D72.820 4 . P ure hypercholesterolemia, unspecified - E78.00 Plan: * Treatment: 2. G raves disease Notes: is considering getting thyroid removed * Procedure Codes: * Follow Up: 6 Months * * Sign off status: Completed true * Provider: Edenilson Najera MD Date: 0 11/14/2024 Generated for Jhony pepe/Barrington/eTransmitting on: 0 05/05/2025 01:53 PM EDT History and Physical Notes * HPI (History of Present Illness) Category Sub-Category Detail Notes Category Not es Symptom(s) patientis a 79y o female here for 6month follow up visit, has pain on bottom/ here for follow up of ct chest. sees dr roque for pulmonary Examination Category Sub-Category Detail Notes Category Not es General Examination GENERAL APPEARANCE: alert, w ell hydrated, in no distress HEAD: normocephalic HEART: no murmurs, rubs, ga llops , regular rate and rhythm LUNGS: no wheezes, rales, r honchi , good air movement , clear to auscultation bilaterally SKIN: good turgor EXTREMITIES: with a callous on fo ot
[2025-05-05 14:40] LABS: MANUAL DIFF FLAG NO
[2025-05-05 15:01] LABS: Hematocrit 26.9 % (37.0-47.0); Hemoglobin 8.6 g/dl (12.0-16.0); Imm Gran Abs Auto 0.01 X10*3/uL (0.00-0.03); Imm Gran Pct Auto 0.2 % (0.0-0.4); Lymphocytes Absolute Auto 1.3 X10*3/uL (1.2-4.9); Mean Corpuscular HGB Conc 32.0 g/dl (31.0-35.0); Mean Corpuscular Hemoglobin 28.4 pg (27.0-33.0); Mean Corpuscular Volume 88.8 fL (80.0-98.0); NRBC Abs Auto 0.000 X10*3/uL (0.0-0.012); NRBC Pct Auto 0.0 /100WBC (0.0-0.2); Platelet Count 245 X10*3/uL (160-400); Red Blood Count 3.03 X10*6/uL (4.20-5.50); White Blood Count 5.2 X10*3/uL (4.8-10.8)
--- OUTSIDE RECORDS SUMMARY | 2025-05-05 15:36 | XMS_ITS | Patient Health Record ---
Author Organization [facility] [place] Address [address] [place] [address] Care Team Providers Care Dramatic Coach Name Role Phone William Najera MD Primary Care Provider Byron Mena Unavailable [phone] Allergies Allergen (clinical drug ingredient) Drug/Non Drug Allergy documented on EMR Reaction Allergy Type Onset Date Status Biaxin stomach pain and diarrhea Drug Allergy Active Results Component Value Reference Range Notes Complete Blood Count Auto Di ff (Not yet reviewed by provider) Interpretation: Performing Lab:[facility], [address] [place] [phone] Notes/Report: White Blood Count 5.2 4.8-10.8 X10*3/uL Red Blood Count 3.03 4.20-5.50 X10*6/uL Hemoglobin 8.6 12.0-16.0 g/dl Hematocrit 26.9 37.0-47.0 % Mean Corpuscular Volume 88.8 80.0-98.0 fL Mean Corpuscular Hemoglobin 28.4 27.0-33.0 pg Mean Corpuscular HGB Conc 32.0 31.0-35.0 g/dl Red Cell Distribution Width 14.0 11.0-16.0 % Platelet Count 245 160-400 X10*3/uL Mean Platelet Volume 9.8 9.4-12.3 fL Neutrophils Percent Auto 58.5 45-73 % Imm Gran Pct Auto 0.2 0.0-0.4 % Lymphocytes Percent Auto 24.8 20-40 % Monocytes Percent Auto 10.3 2-11 % Eosinophils Percent Auto 5.2 0-4 % Basophils Percent Auto 1.0 0-2 % NRBC Pct Auto 0.0 0.0-0.2 /100WBC Neutrophils Absolute Auto 3.0 2.0-8.3 x10*3/u L Imm Gran Abs Auto 0.01 0.00-0.03 X10*3/uL Lymphocytes Absolute Auto 1.3 1.2-4.9 X10*3/u L Monocytes Absolute Auto 0.5 0.1-1.2 X10*3/uL Eosinophils Absolute Auto 0.3 0.0-0.4 X10*3/u L Basophils Absolute Auto 0.1 0.0-0.2 X10*3/uL NRBC Abs Auto 0.000 0.0-0.012 X10*3/uL Reason For Referral No Information Medications Medication SIG (Take, Route, Frequency, Duration) Notes Start Date End Date Status Omeprazole 20 MG 2 QD Orally Once a day Active Probiotic Active Propylthiouracil 50 MG 1 tablet Orally O NCE a day Active Atorvastatin Calcium 40 MG 1 tablet Oral ly Once a day for 30 day(s) Active Evenity 105 MG/1.17ML 2.34 mL Subcutaneous Active Vitamin D-3 25 MCG (1000 UT) 1 capsule O rally Once a day for 30 day(s) Active Flonase Allergy Relief 50 MCG/ACT 1 spray in each nostril Nasally Once a day for 30 day(s) Active Zinc Picolinate - as directed Active Immunizations Vaccine Route Administration Date Status Comme nts Influenza Unknown 08/05/2022 Administered Influenza Unknown 10/05/2023 Administered Social History Tobacco Use: Social History Observation [...] 40 years a go; no sig alcohol Quit smoking over 40 years a go; no sig alcohol Quit smoking over 40 years a go; no sig alcohol Quit smoking over 40 years a go; no sig alcohol Problems Problem Type SNOMED Code ICD Code Onset Dates Problem Status W/U Status Risk Notes Problem 614301229 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 Problem Diverticular disease of colon (340023470) Diverticulosis of large intestine without perforation or abscess without bleeding (K57.30) Active confirmed Problem Iron deficiency anemia (72736068) Iron deficiency anemia (D50.9) Active confirmed Problem 80675472 Heme + stool (R19.5) Active confirmed Problem 973596456 Iron deficiency anemia due to chronic blood loss (D50.0) Active confirmed Problem Diverticulosis o f colon with hemorrhage (K57.31) Active confirmed Problem Anemia due to blood loss (554605333) Anemia due to blood loss (D50.0) Active confirmed Problem 343705764 Gastroesophageal reflux disease, unspecified whether esophagitis present (K21.9) Active confirmed Problem 3306112844496 C. difficile diarrhea (A04.72) Active confirmed Vital Signs Blood pressure diastolic 77 mm Hg 05/05/2025 Height 64 in 05/05/2025 Blood pressure systolic 111 mm Hg 05/05/2025 Weight 139 lbs 05/05/2025 BMI 23.86 kg/m2 05/05/2025 Encounters Encounter Location Date Provider Diagnosis [facility] [address] [place] [phone] 05/05/2025 Byron Morales Diverticulosis of co [place] with hemorrhage K57.31 and Anemia due to blood loss D50.0 [facility] [address] [place] [phone] 05/01/2025 Byron Nielsen Assessments Encounter Date Diagnosis (ICD Code) Assessment Notes Treatment Notes Treatment Clinical Notes Section Notes 05/05/2025 Diverticulosis of colon with hemorrhage (ICD-10 - K57.31) Overall, Anabela appears presently stable and without any signs of active bleeding by her history over at least the past 48 hours. Given the clinical history, the colonoscopy findings 2 years ago, and the recent ER workup, I feel this represents a diverticular bleed that has spontaneously resolved. I advised her that I do not think this represents any type of colonic neoplasm or any other process. The only other possibility, although I think would be less likely, would be that of ischemic colitis. However, based on the description of the bleeding and the drop in hemoglobin, I suspect a diverticular bleed is more likely. At this point since things are stable and she had a colonoscopy just 2 years ago, as well as the clinical history pointing toward a diverticular bleed, I advised her that I am inclined to hold off on a colonoscopy for at least the time being. I have advised her that if she develops any recurrent bleeding similar to the original bleeding last week that she should go directly to the ER. However, if things are stable we will follow this as an outpatient. I am going to check a CBC today just to make sure things are stable as compared to yesterday. If things are stable I will plan to check another CBC in 2 weeks. In the meantime I advised her to begin using iron supplements twice a day as she had in the past when she had anemia back in the early part of 2022. I did advise her that iron supplements will turn the stools dark but obviously if she sees fresh bleeding similar to last week she needs to go to the ER. I did advise her to avoid all aspirin and NSAIDs in the meantime. If things remain stable and then we began to see a rise in the blood counts I will plan to simply see her in the fall for a follow-up visit. However, again if anything changes I did advise her to either call or go to the ER. I advised her we can always reassess the need for colonoscopy if need be. Anabela was very comfortable with this plan. Thank you again for allowing me to possibly Anabela's care. I shall continue to keep you advised of her progress. 05/05/2025 Anemia due to blood loss (ICD-10 - D50.0) Start the same Iron pills twice a day. They will turn the stools dark, but if you start bleeding again like you had been originally then go to the ER. We will hold off on a colonoscopy for now but can always reassess if need be. Overall, Anabela appears presently stable and without any signs of active bleeding by her history over at least the past 48 hours. Given the clinical history, the colonoscopy findings 2 years ago, and the recent ER workup, I feel this represents a diverticular bleed that has spontaneously resolved. I advised her that I do not think this represents any type of colonic neoplasm or any other process. The only other possibility, although I think would be less likely, would be that of ischemic colitis. However, based on the description of the bleeding and the drop in hemoglobin, I suspect a diverticular bleed is more likely. At this point since things are stable and she had a colonoscopy just 2 years ago, as well as the clinical history pointing toward a diverticular bleed, I advised her that I am inclined to hold off on a colonoscopy for at least the time being. I have advised her that if she develops any recurrent bleeding similar to the original bleeding last week that she should go directly to the ER. However, if things are stable we will follow this as an outpatient. I am going to check a CBC today just to make sure things are stable as compared to yesterday. If things are stable I will plan to check another CBC in 2 weeks. In the meantime I advised her to begin using iron supplements twice a day as she had in the past when she had anemia back in the early part of 2022. I did advise her that iron supplements will turn the stools dark but obviously if she sees fresh bleeding similar to last week she needs to go to the ER. I did advise her to avoid all aspirin and NSAIDs in the meantime. If things remain stable and then we began to see a rise in the blood counts I will plan to simply see her in the fall for a follow-up visit. However, again if anything changes I did advise her to either call or go to the ER. I advised her we can always reassess the need for colonoscopy if need be. Anabela was very comfortable with this plan. Thank you again for allowing me to possibly Anabela's care. I shall continue to keep you advised of her progress. Plan Of Treatment Pending Test Test Name Order Date IRON + IBC (FE) 04/24/2023 CBC w DIFF 01/28/2023 CBC w DIFF 05/05/2025 CBC w DIFF 04/24/2023 Complete Blood Count Auto Diff Ferritin 04/24/2023 Future Test Test Name Order Date UPPER GI ENDOSCOPY 01/18/2023 COLONOSCOPY 01/18/2023 Next Appt Details Provider Name:Byron Caceres Morales , 09/08/2025 10:30:00 AM, [address] [place] [address], [address], [place], [phone], Insurance Providers Payer Name Payer Address Payer Phone Subscriber Number Group Number Insured Name Patient Relationship to Insured Coverage Start Date Coverage End Date MEDICARE OF [place] [address] G[place] SALDANA [address] [id number] LING FAYE Self - patient is the insured [facility] [address] [address] [place] [address] [phone] [id number] LING FAYE Self - patient is the insured Medical (General) History Medical History History ICD Code Bronchiectasis-followed by [facility] Kidney stones Grave's disease Denies WA,DM,CVA,renal disease Reported negative colonoscop y in [address] Andino in [place], and also approx. 10 years before that as well with Dr. Andino GERD- Reported negtaive EGD [place] [address] Andino except for a hiatal hernia Asymptomatic gallstones seen on 01/2023 CT scan-D/W patient at the 01/18/2023 OV Hyperlipidemia Iron deficiency anemia in [facility] of 2022- upper endoscopy revealed only a small hiatal hernia and duodenal biopsies negative for celiac disease; a colonoscopy revealed only small tubular adenomas C.diff 09/2023 from antibiot ics for a pulmonary infection- relapsed after 1st round of Vanco and on a tapering regimen of Vanco as of the 10/2023 OV Surgical History Surgery Date(Month/Year) Partial hysterectomy Hip replacements left and right 3
--- OUTSIDE RECORDS SUMMARY | 2025-05-05 15:36 | XMS_ITS | Patient Health Record ---
Author Organization [facility] Address [address] [facility] [place] [address] Care Team Providers Care Cold Work Operator Name Role Phone William Najera MD Primary Care Provider Vilma Daugherty Unavailable [phone] Allergies Allergen (clinical drug ingredient) Drug/Non Drug [...] W/U Status Risk Notes Problem Plantar wart (B07.0) Active confirmed Vital Signs Blood pressure diastolic 60 mm Hg 02/19/2025 Height 5 ft 4inch in 02/19/2025 Blood pressure systolic 130 mm Hg 02/19/2025 Weight 135 lbs 02/19/2025 BMI 23.17 kg/m2 02/19/2025 Encounters Encounter Location Date Provider Diagnosis [address] [phone] 02/19/2025 Vilma Hussein Right foot pain M79.671 and Plantar wart B07.[address] [facility] [address] 01/07/2025 Vilma Hussein Assessments Encounter Date Diagnosis (ICD Code) Assessment [...] [employer] [address] [place] [address] [id number] Marielle Valdivia Self - patient is the insured 1 [facility] Medicare-309 95 [address] [address] [place] [address] [id number] Marielle Valdivia Self - patient is the insured Medical (General) History Medical History History ICD Code Anemia Back,Hip,and Knee pain Arthritis Lung disease Osteoporosis Reflux ( GERD) Measles Chicken pox Joint implants/screws Transfusions Cataracts Surgical History Surgery Date(Month/Year) [facility] Left hip 2011 [facility] Right hip 2013
== END 2025-05-05 14:27 | disposition home or self-care (01) ==
LOC: HO.LAB 14:26
PROVIDERS: PCP Internal Medicine; Visit Provider Internal Medicine
DX: K57.31 Diverticulosis of large intestine without perforation or abscess with bleeding (principal); D50.0 Iron deficiency anemia secondary to blood loss (chronic)
CPT/HCPCS: 36415; 85025

== ENCOUNTER 2025-05-19 15:26 | Outpatient (REF) | payer MEDICARE, OTHER, SELFPAY ==
--- OUTSIDE RECORDS SUMMARY | 2025-05-07 05:35 | XMS_ITS ---
Author Organization William Najera MD Address [address] [place] [phone] Care Team Providers Care Sexual Abuse Counsellor Name Role Phone William Najera Primary Care Provider [phone] REASON FOR VISIT ER Encounters Encounter Location Date Provider Diagnosis William Najera MD [address] [facility] [address] [place] [phone] 05/07/2025 William Najera Plan Of Treatment Next Appt Details Provider Name:William lama, 05/26/2025 07:00:00 AM, [address] [place] [address], [address] [place] [address], [phone], Provider Name:William lama, 06/02/2025 10:30:00 AM, [address] [place] [address], [address], [phone], Progress Notes * Marielle VALDIVIA LDOB:[birth year] (79 yo F)Acc No.[id number]:05/07/2025 Patient: Micheal VILLEGAS Marielle Catarino :1945 A ge:79 Y S ex:Female Address:[address] [place] [phone] * true * Date: Generated for Jhony pepe/Barrington/Imanitting on: 0 05/19/2025 04:28 PM EDT
[2025-05-19 15:36] LABS: MANUAL DIFF FLAG NO
--- OUTSIDE RECORDS SUMMARY | 2025-05-19 16:29 | XMS_ITS | Patient Health Record ---
Author Organization [facility] Address [address] [place] [address] Care Team Providers Care Model Home Sales Greeter Name Role Phone William Najera MD Primary Care Provider Byron Mena Unavailable [phone] Allergies Allergen (clinical drug ingredient) Drug/Non Drug Allergy documented on EMR Reaction Allergy Type Onset Date Status Biaxin stomach pain and diarrhea Drug Allergy Active Results Component Value Reference Range Notes Complete Blood Count Auto Di ff Reviewed date:05/06/2025 08:47:44 AM Interpretation: Performing Lab:[facility], [address] [place] [phone] Notes/Report: White Blood Count 5.2 4.8-10.8 X10*3/uL [...] Problem Status W/U Status Risk Notes Problem 525128872 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 Problem Diverticular disease of colon (966808529) Diverticulosis of large intestine without perforation or abscess without bleeding (K57.30) Active confirmed Problem Iron deficiency anemia (28375220) Iron deficiency anemia (D50.9) Active confirmed Problem 00209329 Heme + stool (R19.5) Active confirmed Problem 444597994 Iron deficiency anemia due to chronic blood loss (D50.0) Active confirmed Problem Diverticulosis o f colon with hemorrhage (K57.31) Active confirmed Problem Anemia due to blood loss (540824056) Anemia due to blood loss (D50.0) Active confirmed Problem 583257275 Gastroesophageal reflux disease, unspecified whether esophagitis present (K21.9) Active confirmed Problem 4495287842854 C. difficile diarrhea (A04.72) Active confirmed Vital Signs Blood pressure diastolic 77 mm Hg 05/05/2025 Height 64 in 05/05/2025 Blood pressure systolic 111 mm Hg 05/05/2025 Weight 139 lbs 05/05/2025 BMI 23.86 kg/m2 05/05/2025 Encounters Encounter Location Date Provider Diagnosis [facility] [address] [place] [phone] 05/05/2025 Byron Nielsen Diverticulosis of co london with hemorrhage K57.31 and Anemia due to blood loss D50.0 [facility] [address] [place] [phone] 05/01/2025 Byron Nielsen Assessments Encounter Date Diagnosis (ICD Code) Assessment Notes Treatment Notes Treatment Clinical Notes Section Notes 05/05/2025 Diverticulosis of colon with hemorrhage (ICD-10 - K57.31) Overall, Anabela presently appears stable and without any signs of active bleeding by her history over at least the past 48 hours. Given the clinical history, the colonoscopy findings of 2 years ago, and the recent ER workup, I feel this represents a diverticular bleed that has spontaneously resolved. I advised her that I do not think this represents any type of colonic neoplasm or any other process. The only other possibility, although I think it would be less likely, would be that of yunior episode of schemic colitis. However, based on the description of [...] similar to the original bleeding last week she should go directly to the ER. [...] iron supplements will turn the stools dark , but obviously if she sees fresh bleeding similar to last week she needs to go to the ER. I did advise her to avoid all aspirin and NSAIDs in the meantime. If things remain stable and we began to see a rise in the blood counts I will plan to simply see her in the Fall for a follow-up visit. However if anything changes I did advise her to either call or go to the ER. I advised her we can always reassess the need for a colonoscopy if need be. Anabela was very comfortable with this plan. Thank you again for allowing me to participate in Anabela's care. I shall continue to keep [...] always reassess if need be. Overall, Anabela presently appears stable and without any signs of active bleeding by her history over at least the past 48 hours. Given the clinical history, the colonoscopy findings of 2 years ago, and the recent ER workup, I feel this represents a diverticular bleed that has spontaneously resolved. I advised her that I do not think this represents any type of colonic neoplasm or any other process. The only other possibility, although I think it would be less likely, would be that of yunior episode of schemic colitis. However, based on the description of [...] similar to the original bleeding last week she should go directly to the ER. [...] iron supplements will turn the stools dark , but obviously if she sees fresh bleeding similar to last week she needs to go to the ER. I did advise her to avoid all aspirin and NSAIDs in the meantime. If things remain stable and we began to see a rise in the blood counts I will plan to simply see her in the Fall for a follow-up visit. However if anything changes I did advise her to either call or go to the ER. I advised her we can always reassess the need for a colonoscopy if need be. Anabela was very comfortable with this plan. Thank you again for allowing me to participate in Anabela's care. I shall continue to keep you advised of her progress. Plan Of Treatment Pending Test Test Name Order Date IRON + IBC (FE) 04/24/2023 CBC w DIFF 01/28/2023 CBC w DIFF 04/24/2023 CBC w DIFF 05/05/2025 Ferritin 04/24/2023 Future Test Test Name Order Date UPPER GI ENDOSCOPY 01/18/2023 COLONOSCOPY 01/18/2023 Next Appt Details Provider Name:Byron Caceres Morales , 09/08/2025 10:30:00 AM, [address] [place] [address], [address], [place], [phone], Insurance Providers Payer Name Payer Address Payer Phone Subscriber Number Group Number Insured Name Patient Relationship to Insured Coverage Start Date Coverage End Date MEDICARE OF [facility] [address] [place] [address] [id number] LING FAYE Self - patient is the insured [facility] [address] [address] [place] [address] [phone] [id number] LING FAYE Self - patient is the insured Medical (General) History Medical History History ICD Code Bronchiectasis-followed by [facility] Pul onolgy Kidney stones Grave's disease Denies SD,DM,CVA,renal disease Reported negative colonoscop y in [address] Andino in [place], and also approx. 10 years before that as well with Dr. Andino GERD- Reported negtaive EGD [place] [address] Andino except for a hiatal hernia Asymptomatic gallstones seen on 01/2023 CT scan-D/W patient at the 01/18/2023 OV Hyperlipidemia Iron deficiency anemia in [facility] of 2022- upper endoscopy revealed only a small hiatal hernia and duodenal biopsies negative for celiac disease; a colonoscopy revealed only small tubular adenomas C.diff 09/2023 from antibiot ics for a pulmonary infection- relapsed after 1st round of Vanco and on a tapering regimen of Vanco as of the 10/2023 OV Lower GI bleed 04/2025-presumed diverticu lar Surgical History Surgery Date(Month/Year) Partial hysterectomy Hip replacements left and right 3
--- OUTSIDE RECORDS SUMMARY | 2025-05-19 16:29 | XMS_ITS | Patient Health Record ---
Author Organization [facility] Address [address] [facility] [place] [address] Care Team Providers Care Engineering Job Titles Name Role Phone William Najera MD Primary Care Provider Vilma Daugherty Unavailable [phone] Allergies Allergen (clinical drug ingredient) Drug/Non Drug [...] 02/19/2025 Encounters Encounter Location Date Provider Diagnosis [address] [phone] 02/19/2025 Vilma Hussein Right foot pain M79.671 and Plantar wart B07.[address] [facility] [phone] 01/07/2025 Vilma Hussein Assessments Encounter Date Diagnosis [...] National [employer] [address] [place] [address] [id number] Marielle Valdivia Self - patient is the insured [address] [facility] Medicare-309 95 [address] [address] [place] [address] [phone] [id number] Marielle Valdivia Self - patient is the insured Medical (General) History Medical History History ICD Code Anemia Back,Hip,and Knee pain Arthritis Lung disease Osteoporosis Reflux ( GERD) Measles Chicken pox Joint implants/screws Transfusions Cataracts Surgical History Surgery Date(Month/Year) [facility] Left hip 2011 [facility] Right hip 2013
[2025-05-19 16:31] LABS: Hematocrit 30.5 % (37.0-47.0); Hemoglobin 9.5 g/dl (12.0-16.0); Imm Gran Abs Auto 0.02 X10*3/uL (0.00-0.03); Imm Gran Pct Auto 0.4 % (0.0-0.4); Lymphocytes Absolute Auto 1.1 X10*3/uL (1.2-4.9); Mean Corpuscular HGB Conc 31.1 g/dl (31.0-35.0); Mean Corpuscular Hemoglobin 28.7 pg (27.0-33.0); Mean Corpuscular Volume 92.1 fL (80.0-98.0); NRBC Abs Auto 0.000 X10*3/uL (0.0-0.012); NRBC Pct Auto 0.0 /100WBC (0.0-0.2); Platelet Count 236 X10*3/uL (160-400); Red Blood Count 3.31 X10*6/uL (4.20-5.50); White Blood Count 4.7 X10*3/uL (4.8-10.8)
== END 2025-05-19 15:27 | disposition home or self-care (01) ==
LOC: HO.LAB 15:26
PROVIDERS: PCP Internal Medicine; Visit Provider Internal Medicine
DX: K57.31 Diverticulosis of large intestine without perforation or abscess with bleeding (principal); D50.0 Iron deficiency anemia secondary to blood loss (chronic)
CPT/HCPCS: 36415; 85025

== ENCOUNTER 2025-05-26 10:18 | Outpatient (REF) | payer MEDICARE, OTHER, SELFPAY ==
[2025-05-26 10:37] LABS: Alanine Aminotransferase 27 U/L (0-31); Albumin Level 4.2 g/dL (3.5-5.0); Alkaline Phosphatase 120 U/L (39-117); Aspartate Amino Transferase 32 U/L (5-31); Cholesterol 114 mg/dL (<200); HDL Cholesterol 54 mg/dL (>40); Total Protein 7.0 g/dL (6.5-8.0); Triglycerides 69 mg/dL (<150)
--- OUTSIDE RECORDS SUMMARY | 2025-05-26 11:24 | XMS_ITS | Clinical Summary ---
Author Organization [facility] Address [address] [facility] [address] [place] [address] Phone Care Team Providers Care Enterprise Account Executive Name Role Phone William Najera MD Primary Care Provider Allergies Active Allergy Reactions Criticality Noted Date Comments Biaxin (Clarithromycin) Diarrhea 10/20/2014 Methimazole 11/15/2015 Fatigue and itching Medications multivitamin per tablet Take 1 tablet by mouth daily. Active omega-3 fatty acids-fish oil 340-1,000 mg Cap Take 1 capsule by mouth daily. Active GLUCOSAMINE/CHO NDR REINOSO A SOD (OSTEO BI-FLEX ORAL) Take 1 Dose by mouth daily. Active CALCIUM ORAL Take 1 Dose by mouth daily. Active SACCHAROMYCES BOULARDII (PROBIOTIC, S.BOULARDII, ORAL) Take 1 Dose by mouth daily. Active alendronate (FOSAMAX) 70 MG tablet Take 70 mg by mouth every 7 days. Take in the morning with a full glass of water, on an empty stomach, and do not take anything else by mouth or lie down for the next 30 min. Active levothyroxine (SYNTHROID,LEVO THROID) 25 MCG tablet Take 25 mcg by mouth every morning. Active atorvastatin (LIPITOR) 40 MG tablet Take 40 mg by mouth daily. Active Active Problems Problem Noted Date Diagnosed Date History of bilateral hip replacements 11/19/2017 Anemia 06/09/2013 Overview (12/26/2014): Anemia; chronic since childhood, baseline Hb Hb 11.5 in 02/16, no abd pain or indigestion, no blood in stool, no change of stool color. Osteoarthritis 06/06/2013 Overview (12/26/2014): Osteoarthritis; 67 yo woman has chronic right hip pain, progressively worse, failed conservative management. s/p left JEAN in 06/17, doing well, did require 2uPRBC, went to rehab because living alone. she takes care of 2 yo granddaughter and goes to gym does treamill 2-3 times a week. Bronchiectasis 06/06/2013 Overview (12/26/2014): Bronchiectasis; mycoplasma pneumonia 09/2010, hypersensitivity pneumonitis 01/2011, bronchiectasis diagnosed 2011. Followed by Dr. Leon Da Silva. Had prolonged cough required brochoscopy this spring, diagnosed with hemophilus infection, cough resolved after 2 weeks' amoxicillin Immunizations Immunization Administration Dates Next Due Pneumococcal polysaccharide PPSV23 06/17(Deferred: Other - , Ordered By: 2020) Family History * Patient is adopted Medical History Relation Comments Uncoded Family History Unspecified Adopted p erson Relation Status Comments Unspecified Social History Tobacco Use Types Packs/Day Years Used Date Smoking Tobacco: Former Smokeless Tobacco: Never Comments:quit in Alcohol Use Standard Drinks/Week Comments Yes 0 (1 standard drink = 0.6 oz pur e alcohol) Education Answer Date Recorded Are you interested in more education? Not on hilario e 03/02/2023 Are you concerned about learning? Not on file 03/02/2023 No 03/02/2023 No 03/02/2023 Digital Access Answer Date Recorded No 03/27/2023 No 03/27/2023 No 03/27/2023 Reliable internet access at home? Not on file 03/27/2023 Device with a working camera? Not on file Comments No Sex and Gender Information Value Date Recorded Sex Assigned at Not on file Legal Sex Female 5:41 PM EST Gender Identity Not on file Sexual Orientation Not on file Last Filed Vital Signs Vital Sign Reading Time Taken Comments Blood Pressure 144/84 01/20/2021 1:37 PM EDT Pulse 80 10/20/2014 10:19 AM EST Temperature - - Respiratory Rate - - Oxygen Saturation - - Inhaled Oxygen Concentration - - Weight 68 kg (150 lb) 01/20/2021 1:37 PM EDT Height 163.8 cm (5' 4.5 ) 01/20/2021 1:37 PM EDT Body Mass Index 25.35 01/20/2021 1:37 PM EDT Plan of Treatment Health Maintenance Due Date Last Done Comments Adult Td,Tdap Booster 1945 LIPID PANEL 1945 TSH LEVEL 1945 DEPRESSION SCREENING 1958 SMOKING Hx and SMOKELESS TOB ACCO SCREENING 1959 HEPATITIS C SCREENING 1964 ZOSTER VACCINES (1 of 2) 1996 OSTEOPOROSIS SCREENING INITI AL (ONE-TIME) 2011 PNEUMOCOCCAL VACCINES (50+ y ears) (2 of 2 - PCV) 10/12/2018 10/12/2017 RSV VACCINE (1 - 1-dose 75+ series) 2021 COVID-19 VACCINE (2 - 2023-2 5 season) 2024 01/06/2021 HEPATITIS A VACCINES Aged Out No long er eligible based on patient's age to complete this topic HIB VACCINES Aged Out No longer eligi ble based on patient's age to complete this topic MENINGOCOCCAL VACCINES (ACWY) Aged Out No longer eligible based on patient's age to complete this topic MENINGOCOCCAL VACCINES (B) Aged Out N o longer eligible based on patient's age to complete this topic Medical Devices Not on file Insurance MEDICARE PART A & B Member Subscriber Plan / Payer (Ef fective 2011-Present) Name:Marielle Valdivia Member ID:[id number] Relation to Subscriber:Self Name:Marielle Valdivia Subscriber ID:[id number] Payer ID:[id number] Group ID:Not on file Type:Medicare Address: [facility] [employer] [facility], [facility]. [address] [facility] [phone] [facility] MEDICARE SUPPLEMENT MEDICARE PART A & B [facility] MEDICARE SUPPLEMENT MEDICARE PART A & B [facility] MEDICARE SUPPLEMENT MEDICARE PART A & B [facility] MEDICARE SUPPLEMENT MEDICARE PART A & B [id number] [place] [address] MEDICARE SUPPLEMENT MEDICARE PART A & B [facility] MEDICARE SUPPLEMENT MEDICARE PART A & B [employer] MEDICARE SUPPLEMENT [facility] [place] Address: [facility] [id number] [place] [address] MEDICARE PART A & B Audit Verify [facility] MEDICARE SUPPLEMENT [facility] [place] Address: [facility] [id number] [place] [address] MEDICARE PART A & B [facility] OOS MEDICARE SUPPLEMENT Care Teams Enterprise Account Executive Relationship Specialty Start Date End Date William Najera MD [address] [place] [phone] PCP - General Internal Medicine 10/14/14 Additional Source Comments The information contained in this document represents components of the legal health record. It is not the complete legal health record.[facility]
--- OUTSIDE RECORDS SUMMARY | 2025-05-26 11:24 | XMS_ITS | Patient Health Record ---
Author Organization [facility] Address [address] [place] [address] Care Team Providers Care Soil Science Professor Name Role Phone William Najera MD Primary Care Provider Byron Mena Unavailable [phone] Allergies Allergen (clinical drug ingredient) Drug/Non Drug Allergy documented on EMR Reaction Allergy Type Onset Date Status Biaxin stomach pain and diarrhea Drug Allergy Active Results Component Value Reference Range Notes Complete Blood Count Auto Di ff Reviewed date:05/06/2025 08:47:44 AM Interpretation: Performing Lab:[facility], [address] [place] [id number] Notes/Report: White Blood Count 5.2 4.8-10.8 X10*3/uL [...] X10*3/uL NRBC Abs Auto 0.000 0.0-0.012 X10*3/uL Complete Blood Count Auto Di ff Reviewed date:05/23/2025 11:20:40 PM Interpretation: Performing Lab:[facility], [address] [place] [phone] Notes/Report: White Blood Count 4.7 4.8-10.8 X10*3/uL Red Blood Count 3.31 4.20-5.50 X10*6/uL Hemoglobin 9.5 12.0-16.0 g/dl Hematocrit 30.5 37.0-47.0 % Mean Corpuscular Volume 92.1 80.0-98.0 fL Mean Corpuscular Hemoglobin 28.7 27.0-33.0 pg Mean Corpuscular HGB Conc 31.1 31.0-35.0 g/dl Red Cell Distribution Width 16.0 11.0-16.0 % Platelet Count 236 160-400 X10*3/uL Mean Platelet Volume 9.9 9.4-12.3 fL Neutrophils Percent Auto 63.7 45-73 % Imm Gran Pct Auto 0.4 0.0-0.4 % Lymphocytes Percent Auto 23.4 20-40 % Monocytes Percent Auto 8.3 2-11 % Eosinophils Percent Auto 3.6 0-4 % Basophils Percent Auto 0.6 0-2 % NRBC Pct Auto 0.0 0.0-0.2 /100WBC Neutrophils Absolute Auto 3.0 2.0-8.3 x10*3/u L Imm Gran Abs Auto 0.02 0.00-0.03 X10*3/uL Lymphocytes Absolute Auto 1.1 1.2-4.9 X10*3/u L Monocytes Absolute Auto 0.4 0.1-1.2 X10*3/uL Eosinophils Absolute Auto 0.2 0.0-0.4 [...] Problem Status W/U Status Risk Notes Problem 041472877 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 Problem Diverticular disease of colon (348341482) Diverticulosis of large intestine without perforation or abscess without bleeding (K57.30) Active confirmed Problem Iron deficiency anemia (81725882) Iron deficiency anemia (D50.9) Active confirmed Problem 01323677 Heme + stool (R19.5) Active confirmed Problem Anemia (647978264) Anemia (D64.9) Active confirmed Problem 718627497 Iron deficiency anemia due to chronic blood loss (D50.0) Active confirmed Problem Hemorrhage of colon due to diverticulosis (047211949545486) Diverticulosis of colon with hemorrhage (K57.31) Active confirmed Problem Anemia due to blood loss (417710156) Anemia due to blood loss (D50.0) Active confirmed Problem 141237696 Gastroesophageal reflux disease, unspecified whether esophagitis present (K21.9) Active confirmed Problem 0975615897069 C. difficile diarrhea (A04.72) Active confirmed Vital Signs Blood pressure diastolic 77 mm Hg 05/05/2025 Height 64 in 05/05/2025 Blood pressure systolic 111 mm Hg 05/05/2025 Weight 139 lbs 05/05/2025 BMI 23.86 kg/m2 05/05/2025 Encounters Encounter Location Date Provider Diagnosis [facility] [address] [place] [phone] 05/05/2025 Byron Nielsen Diverticulosis of [place] with hemorrhage K57.31 and Anemia due to blood loss D50.0 [facility] [address] [place] [phone] 05/01/2025 Byron Nielsen [facility] [address] [place] [phone] 05/23/2025 Byron Nielsen Anemia D64.9 Assessments Encounter Date Diagnosis (ICD Code) Assessment [...] to keep you advised of her progress. 05/23/2025 Anemia (ICD-10 - D64.9) Plan Of Treatment Pending Test Test Name Order Date IRON + IBC (FE) 04/24/2023 IRON + IBC (FE) 05/23/2025 CBC w DIFF 01/28/2023 CBC w DIFF 04/24/2023 CBC w DIFF 05/23/2025 CBC w DIFF 05/05/2025 Ferritin 04/24/2023 Ferritin 05/23/2025 Future Test Test Name Order Date UPPER GI ENDOSCOPY 01/18/2023 COLONOSCOPY 01/18/2023 Next Appt Details Provider Name:Byron Nielsen , 09/08/2025 10:30:00 AM, [address], [address], [place], [address], Insurance Providers Payer Name Payer Address Payer Phone Subscriber Number Group Number Insured Name Patient Relationship to Insured Coverage Start Date Coverage End Date MEDICARE OF [place] [address] [place] [address] [phone] [id number] LING FAYE Self - patient is the insured [facility] [address] [address] [place] [address] [id number] LING FAYE Self - patient is the insured Medical (General) History Medical History History ICD Code Bronchiectasis-followed by [facility] Kidney stones Grave's disease Denies [place],DM,CVA,renal disease Reported negative colonoscop y in [address] Andino in [place], and also approx. 10 years before that as well with Dr. Andino GERD- Reported negtaive EGD [place] [address] Andino except for a hiatal hernia Asymptomatic gallstones seen on 01/2023 CT scan-D/W patient at the 01/18/2023 OV Hyperlipidemia Iron deficiency anemia in [facility] of 2022- upper endoscopy revealed only a [...]
[2025-05-26 11:32] LABS: Reflex LDLD? No
== END 2025-05-26 10:19 | disposition home or self-care (01) ==
LOC: HO.LNP 10:18
PROVIDERS: Visit Provider Internal Medicine
DX: E78.00 Pure hypercholesterolemia, unspecified (principal)
CPT/HCPCS: 80061; 80076

== ENCOUNTER 2025-06-27 09:08 | Outpatient (REF) | payer MEDICARE, OTHER, SELFPAY ==
[2025-06-27 09:18] LABS: MANUAL DIFF FLAG NO
[2025-06-27 09:49] LABS: Hematocrit 34.3 % (37.0-47.0); Hemoglobin 10.8 g/dl (12.0-16.0); Imm Gran Abs Auto 0.01 X10*3/uL (0.00-0.03); Imm Gran Pct Auto 0.2 % (0.0-0.4); Lymphocytes Absolute Auto 1.3 X10*3/uL (1.2-4.9); Mean Corpuscular HGB Conc 31.5 g/dl (31.0-35.0); Mean Corpuscular Hemoglobin 29.0 pg (27.0-33.0); Mean Corpuscular Volume 92.2 fL (80.0-98.0); NRBC Abs Auto 0.000 X10*3/uL (0.0-0.012); NRBC Pct Auto 0.0 /100WBC (0.0-0.2); Platelet Count 235 X10*3/uL (160-400); Red Blood Count 3.72 X10*6/uL (4.20-5.50); White Blood Count 4.7 X10*3/uL (4.8-10.8)
[2025-06-27 11:22] LABS: Iron 32 mcg/dL (30-160); Percent Iron Saturation 12 % (15-50); Total Iron Binding Capacity 267 mcg/dL (228-428); Unsaturated Iron Binding 235 ug/dL
[2025-06-27 11:45] LABS: Ferritin 26 ng/mL (10-250)
== END 2025-06-27 09:09 | disposition home or self-care (01) ==
LOC: HO.LAB 09:08
PROVIDERS: PCP Internal Medicine; Visit Provider Internal Medicine
DX: D64.9 Anemia, unspecified (principal)
CPT/HCPCS: 36415; 82728; 83540; 85025

== ENCOUNTER 2025-07-30 16:28 | Outpatient (REF) | payer MEDICARE, OTHER, SELFPAY ==
--- OUTSIDE RECORDS SUMMARY | 2025-04-21 06:02 | XMS_ITS ---
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 [employer] Name Role Phone William Najera Primary Care Provider [phone] due Encounters Encounter Location Date Provider Diagnosis William Najera MD [address] [facility] [address] [place] [phone] 04/21/2025 William Najera Plan Of Treatment Next Appt Details Provider Name:William lama, 08/11/2025 07:45:00 AM, [address] [place] [address], [address] [place] [address], [phone], Provider Name:William lama, 11/30/2025 08:00:00 AM, [address] [place] [address], [address] [place] [address], [phone], Provider Name:William Enciso ier, 12/03/2025 10:45:00 AM, [facility], [address], [place], [phone], Provider Name:William Enciso ier, 05/27/2026 08:00:00 AM, [address] [place] [address], [address], [place], [phone], Provider Name:William Enciso ier, 06/03/2026 11:00:00 AM, [address] [place] [address], [address], [place], [phone], Progress Notes * Marielle VALDIVIA LDOB:[birth year] (79 yo F)Acc No.[id number]:04/21/2025 Patient: Marielle SMITH :1945 A ge:79 Y S ex:Female Address:[address] [place] [address] [place] [address] * true * Date: Generated for Jhony pepe/Barrington/eTransmitting on: 0 07/30/2025 07:57 PM EDT
--- OUTSIDE RECORDS SUMMARY | 2025-05-01 07:30 | XMS_ITS ---
Author Organization William Najera MD Address [address] [place] [phone] Care Team Providers Care Product Development Worker Name Role Phone William Najera Primary Care Provider [phone] Allergies Allergen (clinical drug ingredient) Drug/Non Drug Allergy documented on EMR Reaction Allergy Type Onset Date Status Biaxin severe diarrhea Drug Allergy A ctive Results Component Value Reference Range Notes Complete Blood Count Auto Di ff Reviewed date:05/01/2025 03:54:44 PM Interpretation: Performing Lab:[facility], [address] [place] [phone] Notes/Report: White Blood Count 5.1 4.8-10.8 X10*3/uL [...] that she needed to go to the [facility] today. Dr. Gant would follow up [...] Location Date Provider Diagnosis William Najera MD [address] [place] [address] [place] [phone] 05/01/2025 William Najera Rectal bleeding K62.5 Assessments [...] Gant Next Appt Details Provider Name:William lama, 08/11/2025 07:45:00 AM, [address] [place] [address], [address], [place], [place], [phone], Provider Name:William lama, 11/30/2025 08:00:00 AM, [address], [address], [place], [phone], Provider Name:William Enciso ier, 12/03/2025 10:45:00 AM, [address], [address], [place], [phone], Provider Name:William Enciso ier, 05/27/2026 08:00:00 AM, [address], [address], [place], [phone], Provider Name:William Enciso ier, 06/03/2026 11:00:00 AM, [address] [facility], [address], [place], [phone], Progress Notes * Marielle VALDIVIA LDOB:[birth year] (79 yo F)Acc No.[id number]:05/01/2025 Progress Notes Patient: Marielle SMITH Provider: Edenilson Najear MD :1945 A ge:79 Y S ex:Female Date:05/01/2025 Address:[address] [place] [address], [id number] Subjective: * Chief Complaints: * R ectal [...] Najera MD Date: 0 05/01/2025 Generated for Jhony pepe/Barrington/Bin on: 0 07/30/2025 07:57 PM EDT History and Physical Notes * [...]
--- OUTSIDE RECORDS SUMMARY | 2025-05-07 05:35 | XMS_ITS ---
Author Organization William Najera MD Address [address] [place] [phone] Care Team Providers Care Radio Operator Name Role Phone William Najera Primary Care Provider REASON FOR VISIT ER Encounters Encounter Location Date Provider Diagnosis William Najera MD 10 [facility] [address] [place] [phone] 05/07/2025 William Najera Plan Of Treatment Next Appt Details Provider Name:William lama, 08/11/2025 07:45:00 AM, [address] [place] [address], [address], [phone], Provider Name:William lama, 11/30/2025 08:00:00 AM, [address] [place] [address], [address], [phone], Provider Name:William Enciso ier, 12/03/2025 10:45:00 AM, [address], [address], [place], [phone], Provider Name:William Enciso ier, 05/27/2026 08:00:00 AM, [address], [address], [place], [phone], Provider Name:William Enciso ier, 06/03/2026 11:00:00 AM, [address] [facility] [address], [address], [place], [phone], Progress Notes * Marielle VALDIVIA LDOB:[birth year] (79 yo F)Acc No.[id number]:05/07/2025 Patient: Marielle SMITH :1945 A ge:79 Y S ex:Female Address:[address] [place] [address] [place] [phone] * true * Date: Generated for Jhony pepe/Barrington/eTransmitting on: 0 07/30/2025 07:56 PM EDT
--- OUTSIDE RECORDS SUMMARY | 2025-05-26 03:00 | XMS_ITS ---
Author Organization William Najera MD Address [address] [place] [phone] Care Team Providers Care Senior Java Software Engineer Name Role Phone William Najera Primary Care Provider Results Component Value Reference Range Notes Liver Panel Reviewed date:05/26/2025 12:29:43 PM Interpretation: Performing Lab:[facility], [address] [place] [phone] Notes/Report: Bilirubin Total 0.6 0.0-1.0 mg/dL Bilirubin Direct 0.3 0.0-0.5 mg/dL Aspartate Amino Transferase 32 5-31 U/L Alanine Aminotransferase 27 0-31 U/L Total Protein 7.0 6.5-8.0 g/dL Albumin Level 4.2 3.5-5.0 g/dL Alkaline Phosphatase 120 39-117 U/L Lipid Panel with Reflex Reviewed date:05/26/2025 12:31:57 PM Interpretation: Performing Lab:[facility], [address] [facility], [place] [address] Notes/Report: Triglycerides 69 <150 mg/dL Desirable Triglyceride: [...] Location Date Provider Diagnosis William Najera MD [address] [place] [address] [place] [phone] 05/26/2025 William Najera Hypercholesteremia E 78.00 Assessments Encounter Date Diagnosis (ICD Code) Assessment Notes Treatment Notes Treatment Clinical Notes Section Notes 05/26/2025 Hypercholesteremia (ICD-10 - E78.00) Plan Of Treatment Next Appt Details Provider Name:William lama, 08/11/2025 07:45:00 AM, [address] [place] [address], [address], [phone], Provider Name:William lama, 11/30/2025 08:00:00 AM, [address] [place] [address], [address], [phone], Provider Name:William lama, 12/03/2025 10:45:00 AM, [address] [place] [address], [address], [phone], Provider Name:William lama, 05/27/2026 08:00:00 AM, [address] [place] [address], [address], [phone], Provider Name:Willaim Enciso ier, 06/03/2026 11:00:00 AM, [address], [address], [place], [phone], Progress Notes * Marielle RILEY LDOB:[birth year] (79 yo F)Acc No.[id number]:05/26/2025 Progress Note Patient: Marielle SMITH Provider: Edenilson Najera MD :1945 A ge:79 Y S ex:Female Date:05/26/2025 Address:[address] [place] [address], [id number] Subjective: * Chief Complaints: * 1 . [...] Pending * Provider: Edenilson Najera MD Date: 05/26/2025 Generated for Jhony pepe/Barrington/Imanitting on: 0 07/30/2025 07:56 PM EDT
--- OUTSIDE RECORDS SUMMARY | 2025-06-02 06:30 | XMS_ITS ---
Author Organization William Najera MD Address [address] [place] [phone] Care Team Providers Care Machine Wood Sander Name Role Phone William Najera Primary Care [...] Location Date Provider Diagnosis William Najera MD [address] [place] [address] [place] [phone] 06/02/2025 William Najera Essential hypertensi on I10 [...] Up: 6 Months, Reason: Provider Name:William lama, 08/11/2025 07:45:00 AM, [address] [place] [address], [address], [phone], Provider Name:William lama, 11/30/2025 08:00:00 AM, [address] [place] [address], [address], [phone], Provider Name:William lama, 12/03/2025 10:45:00 AM, [address] [place] [address], [address], [phone], Provider Name:William lama, 05/27/2026 08:00:00 AM, [address] [place] [address], [address], [phone], Provider Name:William lama, 06/03/2026 11:00:00 AM, [address] [place] [address], [address], [phone], Progress Notes * Marielle VALDIVIA LDOB:[birth year] (79 yo F)Acc No.[id number]:06/02/2025 Patient: Micheal VILLEGAS Marielle L Provider: Edenilson Najera MD :1945 A ge:79 Y S ex:Female Date:06/02/2025 Address:[address] [place] [address] NEPTALI [id number] Subjective: * Chief Complaints: * C OMP [...] to auscultation bilaterally. BREASTS: d one by rag cutting machine operator. ABDOMEN: s oft, nontender, nondistended, bowel sounds present, normal, no organomegaly , no masses palpable. RECTAL EXAM: d one by rag cutting machine operator. FEMALE GENITOURINARY: d one by rag cutting machine operator. EXTREMITIES: n o clubbing, cyanosis, or edema. [...] MD Date: 0 06/02/2025 Generated for Jhony pepe/Barrington/Imanitting on: 0 07/30/2025 07:57 PM EDT History [...] cyanosi s, or edema BREASTS: done by rag cutting machine operator RECTAL EXAM: done by rag cutting machine operator FEMALE GENITOURINARY: done by rag cutting machine operator ORAL CAVITY: mucosa moist
--- NOTE | ~2025-07-30 | CT_ITS ---
EXAMINATION: CT CHEST WITHOUT CONTRAST CLINICAL INFORMATION: Pulmonary nodules COMPARISON: December 14, 2021 TECHNIQUE: Multidetector volumetric CT imaging of the chest was done. Axial MIP volume rendering provided. Sagittal and coronal reformatted images were obtained. This CT examination was performed using dose optimization techniques as appropriate, variously including the following: *Automated exposure control *Adjustment of mA and/or kV according to patient size (this includes techniques or standardized protocols for targeted exams where dose is matched to indication/reason for exam; i.e. extremities or head) *Use of iterative reconstruction technique FINDINGS: LUNGS: Again seen are a numerous small nodular densities in the lungs, primarily in the bases. Axial CT 4 image 106/153: There is a solid nodule measuring 6 x 8 mm, previously 6 x 7 mm located in the anterior left lower lobe. There is focal density in the inferior lingula, likely atelectasis and/or scarring. This is increased when compared to the prior. There is also mild bronchiectasis the lung bases with mucus plugging. There is chronic subsegmental atelectasis in the right middle lobe adjacent to the major fissure overall appear similar to the prior examination except there are no acute punctate calcifications within the area of atelectasis. With saccular bronchiectasis MEDIASTINUM: There is no adenopathy. There is trace pericardial fluid. CORONARY ARTERY CALCIFICATION: Present PLEURA: There is no pleural effusion. No pleural mass or thickening. AXILLA: No lymphadenopathy. UPPER ABDOMEN: There is a simple renal cyst on the right. There 2 small nonobstructing stones in the upper right kidney measuring 2 mm diameter. OSSEOUS STRUCTURES: There are syndesmophytes and fusion of anterior vertebral bodies in the midthoracic spine . CT/CT chest wo IV con IMPRESSION: Chronic pulmonary disease with nodule densities, bronchiectasis, and mucus plugging appear stable to slightly progressed when compared to the prior examination. Chronic subsegmental atelectasis in the right middle lobe tracking along the major fissure with saccular bronchiectasis appears similar to the prior. Stable 6 x 8 mm nodular density in the left lower lobe requires no further follow-up. 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 2 mm nonobstructing stones in right kidney. Fleischner guidelines were followed. Electronically signed by: Jose Ibarra MD 07/30/2025 05:23 PM EDT RP
--- OUTSIDE RECORDS SUMMARY | 2025-07-30 19:56 | XMS_ITS | Clinical Summary ---
Author Organization [facility] Address [address] [facility] [address] [place] [address] Phone Care Team Providers Care Stave Machine Tender Name Role Phone William Najera MD Primary [...] DEPRESSION SCREENING 1958 SMOKING Hx and SMOKELESS TOBACCO SCREENING 1959 HEPATITIS C SCREENING 1964 ZOSTER VACCINES (1 of 2) 1996 OSTEOPOROSIS SCREENING INITIAL (ONE-TIME) 2011 PNEUMOCOCCAL VACCINES (50+ years) (2 of 2 - PCV) 10/12/2018 10/12/2017 RSV VACCINE (1 - 1-dose 75+ series) 2021 INFLUENZA VACCINE (#1) 2025 , 08/26/2019, 07/30/2018, Additional history exists COVID-19 VACCINE (2 - 2024- season) 2025 01/06/2021 HEPATITIS A VACCINES Aged Out No [...] file Insurance MEDICARE PART A & B [facility] MEDICARE SUPPLEMENT MEDICARE PART A & B [facility] MEDICARE SUPPLEMENT MEDICARE PART A & B Member Subscriber Plan / Payer (Ef fective 2011-Present) Name:Marielle Valdivia Member ID:[id number] Relation to Subscriber:Self Name:Marielle Valdivia Subscriber ID:[id number] Payer ID:[id number] Group ID:Not on file Type:Medicare Address: [address] [place] [id number] [place] [address] MEDICARE SUPPLEMENT [facility] Address: [place] [id number] [place] [address] MEDICARE PART A & B MEDICARE SUPPLEMENT MEDICARE PART A & [place] [address] MEDICARE SUPPLEMENT [facility] Address: [facility] [id number] [place] [address] MEDICARE PART A & B [facility] MEDICARE SUPPLEMENT MEDICARE PART A & B [employer] MEDICARE SUPPLEMENT [facility] Address: [place] [address] MEDICARE PART A & B Actions MEDICARE SUPPLEMENT MEDICARE PART A & B [facility] MEDICARE SUPPLEMENT Care Teams Stave Machine Tender Relationship Specialty Start Date End Date William Najera MD [address] [place] [address] [place] [address] PCP - General Internal Medicine 10/14/14 Additional Source Comments The information contained in this document represents components of the legal health record. It is not the complete legal health record.[facility]
--- OUTSIDE RECORDS SUMMARY | 2025-07-30 19:57 | XMS_ITS | Patient Health Record ---
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, [address] [place] [phone] Notes/Report: White Blood Count 4.7 4.8-10.8 X10*3/uL Red Blood Count 4.31 4.20-5.50 X10*6/uL Hemoglobin 12.5 12.0-16.0 g/dl Hematocrit 38.4 37.0-47.0 % Mean Corpuscular Volume 89.1 80.0-98.0 fL Mean Corpuscular Hemoglobin 29.0 27.0-33.0 pg Mean Corpuscular HGB Conc 32.6 31.0-35.0 g/dl Red Cell Distribution Width 13.2 11.0-16.0 % Platelet Count 212 160-400 X10*3/uL Mean Platelet Volume 9.9 9.4-12.3 fL Neutrophils Percent Auto 60.8 45-73 % Imm Gran Pct Auto 0.4 0.0-0.4 % Lymphocytes Percent Auto 24.7 20-40 % Monocytes Percent Auto 9.4 2-11 % Eosinophils Percent Auto 4.1 0-4 % Basophils Percent Auto 0.6 0-2 % NRBC Pct Auto 0.0 0.0-0.2 /100WBC Neutrophils Absolute Auto 2.8 2.0-8.3 x10*3/u L Imm Gran Abs Auto 0.02 0.00-0.03 X10*3/uL Lymphocytes Absolute Auto 1.2 1.2-4.9 X10*3/u L Monocytes Absolute Auto 0.4 0.1-1.2 X10*3/uL Eosinophils Absolute Auto 0.2 0.0-0.4 X10*3/u L Basophils Absolute Auto 0.0 0.0-0.2 X10*3/uL NRBC Abs Auto 0.000 0.0-0.012 X10*3/uL Liver Panel Reviewed date:11/14/2024 01:25:15 PM Interpretation: Performing Lab:[address] [phone] Notes/Report: Bilirubin Total 0.7 0.0-1.0 mg/dL Bilirubin Direct 0.3 0.0-0.5 mg/dL Aspartate Amino Transferase 30 5-31 U/L Alanine Aminotransferase 27 0-31 U/L Total Protein 7.5 6.5-8.0 g/dL Albumin Level 4.1 3.5-5.0 g/dL Alkaline Phosphatase 112 39-117 U/L Lipid Panel with Reflex Reviewed date:11/14/2024 05:09:12 PM Interpretation: Performing Lab:[address] [address] Notes/Report: Triglycerides 58 <150 mg/dL Desirable Triglyceride: less than 150 mg/dL Borderline High Triglyceride 150-199 mg/dL High Triglyceride: 200-499 mg/dL Very High Triglyceride: greater than or equal to 5OO mg/dL Cholesterol 112 <200 mg/dL Desirable Cholesterol: less than 200 mg/dL Borderline High Cholesterol: 200-239 mg/dL High Cholesterol: greater than 239 mg/dL LDL Cholesterol Calculated 46 <100 mg/dL Desirable LDL: less than 100 mg/dL Near Optimal/Above Optimal LDL: 110-129 mg/dL Borderline High LDL: 130-159 mg/dL High LDL: 160-189 mg/dL Very High LDL: greater than or equal to 190 mg/dL HDL Cholesterol 55 >40 mg/dL Desirable HDL: greater than 40 mg/dL Note: This HDL assay may give artificially low results in patients with liver disease. Liver Panel Reviewed date:05/26/2025 12:29:43 PM Interpretation: Performing Lab:[facility], [address] [place] [phone] Notes/Report: Bilirubin Total 0.6 0.0-1.0 mg/dL Bilirubin Direct 0.3 0.0-0.5 mg/dL Aspartate Amino Transferase 32 5-31 U/L Alanine Aminotransferase 27 0-31 U/L Total Protein 7.0 6.5-8.0 g/dL Albumin Level 4.2 3.5-5.0 g/dL Alkaline Phosphatase 120 39-117 U/L Lipid Panel with Reflex Reviewed date:05/26/2025 12:31:57 PM Interpretation: Performing Lab:[facility], [address] [place] [phone] Notes/Report: Triglycerides 69 <150 mg/dL Desirable Triglyceride: [...] low results in patients with liver disease. Complete Blood Count Auto Di ff Reviewed date:05/01/2025 03:54:44 PM Interpretation: Performing Lab:[facility], [address] [place] [phone] Notes/Report: White Blood Count 5.1 4.8-10.8 X10*3/uL [...] X10*3/uL NRBC Abs Auto 0.000 0.0-0.012 X10*3/uL MM tomosynthesis screening B I Reviewed date:08/13/2024 06:24:43 PM Interpretation: Performing Lab: Notes/Report: [address] [place] [address] Mammography Report Signed Patient: Marielle Valdivia MR#: [id number] 8 : 1945 Acct:[id number] Age/Sex: 78 / F ADM Date: 08/01/24 Loc: HO.MAMMO Attending Dr: William Najera MD Ordering Physician: William Najera MD Results: 1Ne gative Date of Service: 08/01/24 Follow Up: 1 Year From Orig ina Mammogram Procedure(s): MM tomosynthesis screening BI Accession Number(s): [id number] cc: William Najera MD EXAMINATION: MM SCREENING DIGITAL BREAST TOMOSYNTHESIS, BILATERAL CLINICAL INFORMATION: Screening. Asymptomatic. COMPARISON: Mammography: Comparison is made with available priors TECHNIQUE: Digital breast mammography with tomosynthesis is performed in both the craniocaudal and mediolateral oblique views along with computer-aided detection (CAD). FINDINGS: The breasts are heterogeneously dense, which may obscure small masses (ACR BI-RADS breast composition Category c). There are no significant masses, abnormal calcifications, or other abnormalities. MM/MM tomosynthesis screening BI IMPRESSION: No mammographic evidence of malignancy. ASSESSMENT: BI-RADS BI-RADS 1 - Negative RECOMMENDATION: Routine annual mammography screening. 1 year F/U This examination should not preclude the clinical evaluation of a suspicious palpable abnormality. This patient's information was entered into a reminder system with a target due date for their next mammogram. Electronically signed by: Ronit Glover DO 08/13/2024 09:23 AM EDT Dictated By: Ronit Glover DO Signed By: <Electronically signed by Ronit Glover DO in OV> 08/13/24922 DD/ 9 TD/TT: 08/01/24954 Broth Setter: [address] [place] [address] Mammography Report Signed Patient: Shanika Valdivia MR#: [id number] 8 : 1945 Acct:[id number] Age/Sex: 78 / F ADM Date: 08/01/24 Loc: HO.MAMMO Attending Dr: William Najera MD Ordering Physician: William Najera MD Results: 1Ne gative Date of Service: 08/01/24 Follow Up: 1 Year From Orig ina Mammogram Procedure(s): MM tomosynthesis screening BI Accession Number(s): [id number] cc: Wililam Najera MD EXAMINATION: MM SCREENING DIGITAL BREAST TOMOSYNTHESIS, BILATERAL CLINICAL INFORMATION: Screening. Asymptomatic. COMPARISON: Mammography: Compari son is made with available priors TECHNIQUE: Digital breast mammography with tomosynthesis is performed in both the craniocaudal and mediolateral oblique views along with computer-aided detection (CAD). FINDINGS: The breasts are heterogeneously dense, which may obscure small masses (ACR BI-RADS breast composition Category c). There are no significant masses, abnormal calcifications, or other abnormalities. MM/MM tomosynthesis screening BI IMPRESSION: No mammographic evidence of malignancy. ASSESSMENT: BI-RADS BI-RADS 1 - Negative RECOMMENDATION: Routine annual mammography screening. 1 year F/U This examination jae uld not preclude the clinical evaluation of a suspicious palpable abnormality. This patient's information was entered into a reminder system with a target due date for their next mammogram. Electronically brian d by: Ronit Glover DO 08/13/2024 09:23 AM EDT Dictated By: Ronit Glover DO Signed By: <Electronically signed by Ronit Glover DO in OV> 08/13/24922 DD/ 9 TD/TT: 08/01/2455 Broth Setter: Alan Emerson Reviewed date:11/14/2024 01:25:22 PM Interpretation: Performing Lab:[address] [phone] Notes/Report: Alan Emerson See Note Specimen held untested for 24 hours; Call to request Chemistry testing. Complete Blood Count no Diff Reviewed date:05/05/2025 08:44:21 AM Interpretation: Performing Lab:[address] [phone] Notes/Report: White Blood Count 5.3 4.8-10.8 X10*3/uL Red Blood Count 2.92 4.20-5.50 X10*6/uL Hemoglobin 8.3 12.0-16.0 g/dl Hematocrit 25.2 37.0-47.0 % Mean Corpuscular Volume 86.3 80.0-98.0 fL Mean Corpuscular Hemoglobin 28.4 27.0-33.0 pg Mean Corpuscular HGB Conc 32.9 31.0-35.0 g/dl Red Cell Distribution Width 13.8 11.0-16.0 % Platelet Count 188 160-400 X10*3/uL Mean Platelet Volume 9.1 9.4-12.3 fL NRBC Pct Auto 0.0 0.0-0.2 /100WBC NRBC Abs Auto 0.000 0.0-0.012 X10*3/uL Complete Blood Count Auto Di ff Reviewed date:05/05/2025 10:26:04 AM Interpretation: Performing Lab:[facility], [address] [place] [phone] Notes/Report: White Blood Count 5.9 4.8-10.8 X10*3/uL Red Blood Count 3.03 4.20-5.50 X10*6/uL Hemoglobin 8.6 12.0-16.0 g/dl Hematocrit 26.5 37.0-47.0 % Mean Corpuscular Volume 87.5 80.0-98.0 fL Mean Corpuscular Hemoglobin 28.4 27.0-33.0 pg Mean Corpuscular HGB Conc 32.5 31.0-35.0 g/dl Red Cell Distribution Width 13.8 11.0-16.0 % Platelet Count 205 160-400 X10*3/uL Mean Platelet Volume 9.3 9.4-12.3 fL Neutrophils Percent Auto 64.1 45-73 % Imm Gran Pct Auto 0.2 0.0-0.4 % Lymphocytes Percent Auto 24.6 20-40 % Monocytes Percent Auto 8.5 2-11 % Eosinophils Percent Auto 2.1 0-4 % Basophils Percent Auto 0.5 0-2 % NRBC Pct Auto 0.0 0.0-0.2 /100WBC Neutrophils Absolute Auto 3.8 2.0-8.3 x10*3/u L Imm Gran Abs Auto 0.01 0.00-0.03 X10*3/uL Lymphocytes Absolute Auto 1.4 1.2-4.9 X10*3/u L Monocytes Absolute Auto 0.5 0.1-1.2 X10*3/uL Eosinophils Absolute Auto 0.1 0.0-0.4 X10*3/u L Basophils Absolute Auto 0.0 0.0-0.2 X10*3/uL NRBC Abs Auto 0.000 0.0-0.012 X10*3/uL Prothrombin Time INR Reviewed date:05/05/2025 10:25:36 AM Interpretation: Performing Lab:[address] [phone] Notes/Report: Prothrombin Time 11.9 10.9-12.4 SEC INTERNATIONAL NORM RATIO 1.0 0.9-1.1 INTERNATIONAL NORMALIZED RATIO (INR) REFERENCE RANGES Reference Range For patients not on anticoagulant therapy: 0.9 - 1.1 INR ranges for oral anticoagulant therapy: For prevention and treatment of venous thrombosis and pulmonary embolism: 2.0 - 3.0 For acute myocardial infarction with aspirin therapy: 2.0 - 3.0 For acute myocardial infarction without aspirin therapy: 3.0 - 4.0 For patients with mechanical prosthetic heart valves: 2.5 - 3.5 OBSX1 Reviewed date:05/05/2025 08:44:28 AM Interpretation: Performing Lab:[facility], [address] [place] [phone] Notes/Report: OBS1 POSITIVE NEGATIVE Comprehensive Met. Panel Reviewed date:05/05/2025 10:26:23 AM Interpretation: Performing Lab:[facility], [address] [place] [phone] Notes/Report: Sodium 145 135-145 mmol/L Potassium 3.6 3.3-5.1 mmol/L Chloride 112 96-108 mmol/L Carbon Dioxide 26 22-29 mmol/L Anion Gap 11 12-20 Blood Urea Nitrogen 20 9-16 mg/dL Creatinine 0.74 0.5-1.4 mg/dL Creatinine Clr Calc Pharmacy 54.1 Provided height and weight: 162.56 cm, 63.3 kg. eGFR (calculated from the MDRD study equation) and eCrCl (calculated from the Cockcroft-Gault equation) are based on different parameters and may not yield comparable results. If eCrCl result is absurd, please check patient's height/weight. Estimated Glomerular Filt Rate > 60 Chronic Kidney Disease: Estimated GFR < 60 mL/min/1.73m2 Severe Kidney Disease: Estimated GFR < 15 mL/min/1.73m2 Glucose Random 94 60-115 mg/dL Calcium 8.7 8.4-10.2 mg/dL Bilirubin Total 0.4 0.0-1.0 mg/dL Aspartate Amino Transferase 27 5-31 U/L Alanine Aminotransferase 22 0-31 U/L Total Protein 6.8 6.5-8.0 g/dL Albumin Level 4.0 3.5-5.0 g/dL Alkaline Phosphatase 102 39-117 U/L Magnesium Reviewed date:05/05/2025 08:44:43 AM Interpretation: Performing Lab:[address] [phone] Notes/Report: Magnesium 1.9 1.6-2.6 mg/dL Alan Emerson Reviewed date:05/26/2025 12:30:32 PM Interpretation: Performing Lab:[address] [phone] Notes/Report: Alan Emerson See Note Specimen held untested for 24 hours; Call to request Chemistry testing. Complete Blood Count Auto Di ff Reviewed date:06/28/2025 03:20:20 PM Interpretation: Performing Lab:[address] [phone] Notes/Report: White Blood Count 4.7 4.8-10.8 X10*3/uL Red Blood Count 3.72 4.20-5.50 X10*6/uL Hemoglobin 10.8 12.0-16.0 g/dl Hematocrit 34.3 37.0-47.0 % Mean Corpuscular Volume 92.2 80.0-98.0 fL Mean Corpuscular Hemoglobin 29.0 27.0-33.0 pg Mean Corpuscular HGB Conc 31.5 31.0-35.0 g/dl Red Cell Distribution Width 14.2 11.0-16.0 % Platelet Count 235 160-400 X10*3/uL Mean Platelet Volume 9.7 9.4-12.3 fL Neutrophils Percent Auto 55.3 45-73 % Imm Gran Pct Auto 0.2 0.0-0.4 % Lymphocytes Percent Auto 27.5 20-40 % Monocytes Percent Auto 11.2 2-11 % Eosinophils Percent Auto 5.2 0-4 % Basophils Percent Auto 0.6 0-2 % NRBC Pct Auto 0.0 0.0-0.2 /100WBC Neutrophils Absolute Auto 2.6 2.0-8.3 x10*3/u L Imm Gran Abs Auto 0.01 0.00-0.03 X10*3/uL Lymphocytes Absolute Auto 1.3 1.2-4.9 X10*3/u L Monocytes Absolute Auto 0.5 0.1-1.2 X10*3/uL Eosinophils Absolute Auto 0.2 0.0-0.4 X10*3/u L Basophils Absolute Auto 0.0 0.0-0.2 X10*3/uL NRBC Abs Auto 0.000 0.0-0.012 X10*3/uL IRON PROFILE Reviewed date:06/28/2025 03:06:49 PM Interpretation: Performing Lab:[address] [phone] Notes/Report: Iron 32 30-160 mcg/dL Total Iron Binding Capacity 267 228-428 mcg/dL Percent Iron Saturation 12 15-50 % Unsaturated Iron Binding 235 Ferritin Reviewed date:06/28/2025 03:06:57 PM Interpretation: Performing Lab:[facility], [address] [place] [phone] Notes/Report: Ferritin 26 10-250 ng/mL CT chest wo con (Not yet rev iewed by provider) Interpretation: Performing Lab: Notes/Report: [address] [address] [address] Scan Report Signed Patient: Marielle Valdivia MR#: [id number] 8 : 1945 Acct:[id number] Age/Sex: 79 / F ADM Date: 07/30/25 Loc: HO.CT Attending Dr: William Najera MD Ordering Physician: William Najera MD Date of Service: 07/30/25 Procedure(s): CT chest wo IV con Accession Number(s): [id number] cc: William Najera MD Report Number: [id number]: Total DLP = 107.00 mGy-cm Reason for Exam: PULMONARY NODULE EXAMINATION: CT CHEST WITHOUT CONTRAST CLINICAL INFORMATION: Pulmonary nodules COMPARISON: December 14, 2021 TECHNIQUE: Multidetector volumetric CT imaging of the chest was done. Axial MIP volume rendering provided. Sagittal and coronal reformatted images were obtained. This CT examination was performed using dose optimization techniques as appropriate, variously including the following: *Automated exposure control *Adjustment of mA and/or kV according to patient size (this includes techniques or standardized protocols for targeted exams where dose is matched to indication/reason for exam; i.e. extremities or head) *Use of iterative reconstruction technique FINDINGS: LUNGS: Again seen are a numerous small nodular densities in the lungs, primarily in the bases. Axial CT 4 image 106/153: There is a solid nodule measuring 6 x 8 mm, previously 6 x 7 mm located in the anterior left lower lobe. There is focal density in the inferior lingula, likely atelectasis and/or scarring. This is increased when compared to the prior. There is also mild bronchiectasis the lung bases with mucus plugging. There is chronic subsegmental atelectasis in the right middle lobe adjacent to the major fissure overall appear similar to the prior examination except there are no acute punctate calcifications within the area of atelectasis. With saccular bronchiectasis MEDIASTINUM: There is no adenopathy. There is trace pericardial fluid. CORONARY ARTERY CALCIFICATION: Present PLEURA: There is no pleural effusion. No pleural mass or thickening. AXILLA: No lymphadenopathy. UPPER ABDOMEN: There is a simple renal cyst on the right. There 2 small nonobstructing stones in the upper right kidney measuring 2 mm diameter. OSSEOUS STRUCTURES: There are syndesmophytes and fusion of anterior vertebral bodies in the midthoracic spine . CT/CT chest wo IV con IMPRESSION: Chronic pulmonary disease with nodule densities, bronchiectasis, and mucus plugging appear stable to slightly progressed when compared to the prior examination. Chronic subsegmental atelectasis in the right middle lobe tracking along the major fissure with saccular bronchiectasis appears similar to the prior. Stable 6 x 8 mm nodular density in the left lower lobe requires no further follow-up. 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 2 mm nonobstructing stones in right kidney. Fleischner guidelines were followed. Electronically signed by: Jose Ibarra MD 07/30/2025 05:23 PM EDT RP Dictated By: Jose Ibarra MD Signed By: <Electronically signed by Jose Ibarra MD in OV> 07/30/25 1723 DD/ 1636 TD/TT: 07/30/25 1642 Broth Setter: [place] [address] CT Scan Report Signed Patient: Shanika Valdivia MR#: [id number] 8 : 1945 Acct:[id number] Age/Sex: 79 / F ADM Date: 07/30/25 Loc: HO.CT Attending Dr: William Najera MD Ordering Physician: William Najera MD Date of Service: 07/30/25 Procedure(s): CT marybeth st wo IV con Accession Number(s): [id number] cc: William Najera MD Report Number: [id number]: Total DLP = 107.00 mGy-cm Reason for Exam: PULMONARY NODULE EXAMINATION: CT CHEST WITHOUT CONTRAST CLINICAL INFORMATION: Pulmonary nodules COMPARISON: December 14, 2021 TECHNIQUE: Multidetector volumetric CT imaging of the chest was done. Axial MIP volume rendering provided. Sagittal and coronal reformatted images were obtained. This CT examination was performed using dose optimization techniques as appropriate, various ly including the following: *Automated exposure control *Adjustment of mA and/or kV according to patient size (this includes techniques or standardized protocols for targeted exams where dose is matched to indication/reason for exam; i.e. extremities or head) *Use of iterative reconstruction technique FINDINGS: LUNGS: Again seen are a numerous small nodular densities in the lungs, primarily in the bases. Axial CT 4 image 106/153: There is a solid nodule measuring 6 x 8 mm, previously 6 x 7 mm located in the anterior left lower lobe. There is focal densi ty in the inferior lingula, likely atelectasis and/or scarring. Thi s is increased when compared to the prior. There is also mild bronchiectasis the lung bases with mucus plugging. There is chronic subsegmental atelectasis in the right middle lobe adjacent to the ramakrishna r fissure overall appear similar to the prior examination except there are no acute punctate calcifications within the area of atelectasis. With saccular bronchiectasis MEDIASTINUM: There is no adenopathy. There is trace pericardial fluid. CORONARY ARTERY CALCIFICATION: Present PLEURA: There is no pleural effusion. No pleural mass or thickening. AXILLA: No lymphadenopathy. UPPER ABDOMEN: There is a simple renal cyst on the right. There 2 small nonobstructing stones in the upper right kidney measuring 2 mm diameter. OSSEOUS STRUCTURES: There are syndesmophytes and fusion of anterior vertebral bodies in the midthoracic spine . CT/CT chest wo IV con IMPRESSION: Chronic pulmonary disease with nodule densities, bronchiectasis, and mucus plugging appea r stable to slightly progressed when compared to the prior examination. Chronic subsegmental atelectasis in the right middle lobe tracking along the major fiss ure with saccular bronchiectasis appears similar to the prior. Stable 6 x 8 mm nodu lar density in the left lower lobe requires no further follow-up. 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 2 mm nonobstructing stones in right kidney. Fleischner guideline s were followed. Electronically brian d by: Jose Ibarra MD 07/30/2025 05:23 PM EDT RP Dictated By: Jose Ibarra MD Signed By: <Electronically signed by Jose Ibarra MD in OV> 07/30/25 1723 DD/ 1636 TD/TT: 07/30/25 1642 Broth Setter: Reason For Referral Reason Rectal bleeding ne [...] [place] 0 05/01/2025 12:00:33 PM >referral info faxedLiz Annette 05/04/2025 10:01:37 AM > spoke with office, they spoke with patient and told her if she was still bleeding that she needed to go to the [facility] today. Dr. Gant would follow up with her after that. Spoke with patient she is aware of this. Referral Priority Routine Referral Appointment Date 05/05/2025 Medications Medication SIG (Take, Route, Frequency, Duration) Notes Start Date End Date Status Evenity 105 MG/1.17ML 2.34 mL Subcutaneous Active Propylthiouracil 50 MG 1 tablet Orally o nce a day Active One Daily For Women Orally Active Metoprolol Tartrate 25 MG 1 tablet with food Orally Twice a day for 30 day(s) Not-Taking Ferrous Sulfate 325 (65 Fe) MG 1 tablet Orally twice a day Not-Taking Tessalon Perles 100 MG 1 capsule as need ed Orally Three times a day for 10 days 07/29/2019 Not-Taking Atorvastatin Calcium 40 MG TAKE 1 TABLET BY MOUTH EVERY DAY for 90 Active Omeprazole 20 MG 2 capsule 30 minutes before morning meal Orally Once a day Active Probiotic Orally Active Vitamin D 50 MCG (2000 UT) 1 tablet Oral ly Once a day Active Immunizations Vaccine Route Administration Date Status Comme nts Flu Vaccine IM Intramuscular 08/01/2011 Administered PPSV23 (Pnemovax) IM Intramuscular 08/01/2011 Administered Flu Vaccine IM Intramuscular 08/05/2012 Administered Prevnar 13 IM Intramuscular 08/05/2012 Administered TDaP Unknown 2012 Administered PPSV23 (Pnemovax) Unknown 08/05/2012 Administered Shingles IM Intramuscular 01/20/2013 Administered Flu Vaccine IM Intramuscular 07/22/2013 Administered Flu Vaccine Unknown 08/10/[address] Coffey Fluarix Quadrivalent IM Intramuscular 08/24/2015 Administered Fluarix Quadrivalent Unknown 08/16/[address] Da Silva Flu Vaccine Unknown 08/21/2017 Administered Done at Pulmonary Dr's office, high dose PPSV23 (Pnemovax) IM Intramuscular 10/12/2017 Administered Fluarix Quadrivalent IM Intramuscular 07/30/2018 Administered Influenza High Dose IM Intramuscular 08/26/2019 Administer ed Influenza High Dose IM Intramuscular 07/09/2020 Administer ed Covid Vaccine Unknown 01/06/2021 Administered Moderna Covid Vaccine Unknown 02/03/2021 Administered Moderna Influenza High Dose IM Intramuscular 08/23/2021 Administer ed SARS-COV-2 Moderna Unknown 09/07/2021 Administered Influenza High Dose IM Intramuscular 07/11/2022 Administer ed PPSV23 (Pnemovax) IM Intramuscular 03/02/2023 Administered Influenza High Dose IM Intramuscular 09/13/2023 Administer ed Influenza High Dose IM Intramuscular 07/18/2024 Administer ed RSV Unknown 09/06/2024 Administered Vivian's Social History Tobacco Use: Social History Observation [...] Never (0 point) Points 1 Interpretation Negative Problems Problem Type SNOMED Code ICD Code Onset Dates Problem Status W/U Status Risk Notes Problem 03991172 Lymphocytosis (symptomatic) (D72.820) Active confirmed Problem 64766605 Age-related osteoporosis without current pathological fracture (M81.0) Active confirmed Problem 566899001 Atherosclerotic heart disease of [place] coronary artery without angina pectoris (I25.10) Active confirmed Problem Thyroid nodule (088637494) Thyroid nodule (E04.1) Active confirmed Problem Neutropenia (540411705) Neutropenia (D70.9) Active confirmed Problem Lymphocytosis (07932827) Lymphocytosis (D72.820) Active confirmed Problem 60062270 Kidney stone (N20.0) Active confirmed Problem 21332721 Essential hypertension (I10) Active confirmed Problem Solitary nodule of lung (086428645) Lung nodule (R91.1) Active confirmed Problem 651626562 Irregular heart beat (I49.9) Active confirmed Problem 874116334 History of hematuria (Z87.448) Active confirmed Problem Graves disease (114269732) Graves disease (E05.00) Active confirmed Problem 84765721 Bronchiectasis without complication (J47.9) Active confirmed Problem 655901411 Anemia, unspecif ied type (D64.9) Active confirmed Problem 948356753 Abnormal mammogr am (R92.8) Active confirmed Problem 599836283 Iron deficiency anemia due to chronic blood loss (D50.0) Active confirmed Problem 544725382 Renal cyst (N28.1) Active confirmed Problem 70662910 Atherosclerosis (I70.90) Active confirmed Problem 196762885 Pulmonary nodule (R91.1) Active confirmed Problem 499905807 Pure hypercholesterolemi a, unspecified (E78.00) Active confirmed Problem hypercholesterolemia (disorder) (06794872) Hypercholesteremia (E78.00) Active confirmed Problem 27079418 Hydronephrosis w ith urinary obstruction due to renal calculus (N13.2) Active confirmed Problem 80767851 Extrasystole (I49.49) Active confirmed Problem 51131524 Hearing loss, unspecified hearing loss type, unspecified laterality (H91.90) Active confirmed Problem 40270374850362426 Abnormal chest CT (R93.89) Active confirmed Problem 409359215 Bronchiectasis w ith acute exacerbation (J47.1) Active confirmed Problem 182201524 Irregularly irregular pulse rhythm (I49.9) Active confirmed Vital Signs Blood pressure diastolic 70 mm Hg 06/02/2025 roberto ght is up 2 pounds since 05-01-25 Height 66 in 06/02/2025 weight is up 2 pounds since 05-01-25 Blood pressure systolic 124 mm Hg 06/02/2025 weig ht is up 2 pounds since 05-01-25 Weight 140 lbs 06/02/2025 weight is up 2 pounds since 05-01-25 BMI 22.59 kg/m2 06/02/2025 weight is up 2 pounds since 05-01-25 Encounters Encounter Location Date Provider Diagnosis William Najera MD [address] [place] [address] Drive [address] [place] [address] [id number] 11/14/2024 William Najera Lymphocytosis D72.82 0 and Hypercholesteremia E78.00 William Najera MD [address] [place] [address] Drive [address] [place] [address] [id number] 05/26/2025 William Najera Hypercholesteremia E 78.00 William Najera MD [address] [place] [address] [id number] 11/14/2024 William Najera Pulmonary nodule R91 .1 ; Graves disease E05.00 ; Lymphocytosis (symptomatic) D72.820 and Pure hypercholesterolemia, unspecified E78.00 William Najera MD [address] [place] [address] [id number] 05/01/2025 William Najera Rectal bleeding K62. 5 William Najera MD [address] [place] [address] [id number] 06/02/2025 William Najera Essential hypertensi on I10 ; Bronchiectasis without complication J47.9 ; Iron deficiency anemia due to chronic blood loss D50.0 ; Hypercholesteremia E78.00 and Depression screening Z13.31 William Najera MD [address] [place] [address] [id number] 10/21/2024 William Najera MD [address] [place] [address] [id number] 04/21/2025 William Najera MD [address] [place] [address] [id number] 05/07/2025 William Najera Assessments Encounter Date Diagnosis (ICD Code) Assessment Notes Treatment Notes Treatment Clinical Notes Section Notes 11/14/2024 Lymphocytosis (ICD-1 0 - D72.820) 11/14/2024 Hypercholesteremia (ICD-10 - E78.00) 05/26/2025 Hypercholesteremia (ICD-10 - E78.00) 11/14/2024 Pulmonary nodule (ICD-10 - R91.1) will repeat ct in 6 months and is going to see dr roque in spring 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/ order put in future folder 11/14/2024 Graves disease (ICD- 10 - E05.00) is considering getting thyroid removed 05/01/2025 Rectal bleeding (ICD-10 - K62.5) should follow up aleta gant next week possible a diverticula bleed 06/02/2025 Essential hypertensi on (ICD-10 - I10) well controlled 06/02/2025 Bronchiectasis witho ut complication (ICD-10 - J47.9) no problems at present time, will continue to monitor 11/14/2024 Lymphocytosis (symptomatic) (ICD-10 - D72.820) 06/02/2025 Iron deficiency anem ia due to chronic blood loss (ICD-10 - D50.0) doing well, will cntinue to monitor 11/14/2024 Pure hypercholesterolemia, unspecified (ICD-10 - E78.00) 06/02/2025 Hypercholesteremia (ICD-10 - E78.00) stable, will continue current regiment 06/02/2025 Depression screening (ICD-10 - Z13.31) negative screen Plan Of Treatment Pending Test Test Name Order Date Electrocardiogram (EKG) 04/12/2017 Electrocardiogram (EKG) 05/02/2019 CT CHEST NO CONTRAST 12/08/2021 XR GI SERIES 12/28/2020 CT chest wo con 10/18/2023 CT chest wo con 07/30/2025 CT chest wo con 08/31/2023 US thyroid 07/04/2022 XR chest 2V 08/24/2023 Future Test Test Name Order Date CT chest wo con 11/29/2024 CT chest wo con 05/14/2025 Next Appt Details Provider Name:William lama, 08/11/2025 07:45:00 AM, [address] [place] [address], [address], [phone], Provider Name:William lama, 11/30/2025 08:00:00 AM, [address] [place] [address], [address], [phone], Provider Name:William lama, 12/03/2025 10:45:00 AM, [address] [place] [address], [address], [phone], Provider Name:William lama, 05/27/2026 08:00:00 AM, [address] [place] [address], [address], [phone], Provider Name:William lama, 06/03/2026 11:00:00 AM, [address] [place] [address], [address], [phone], Insurance Providers Payer Name Payer Address Payer Phone Subscriber Number Group Number Insured Name Patient Relationship to Insured Coverage Start Date Coverage End Date MEDICARE [employer] [address] [place] [address] [id number] Marielle Valdivia Self - patient is the insured [facility] [address] [address] [place] [address] [phone] [id number] Marielle Valdivia Self - patient is the insured Medical (General) History Medical History History ICD Code bone density - 11/2008; 11/2017 colonoscopy - 12/2004 dr whitt as; 08/2013 (repeat 2022)01/25/23 Colonoscopy pending path LUNG NODULE NEEDS REPEAT CT JANUARY 2014 r epeat in 2013 no need for further [employer]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
--- OUTSIDE RECORDS SUMMARY | 2025-07-30 19:57 | XMS_ITS | Patient Health Record ---
Author Organization [facility] Address [address] [place] [address] Care Team Providers Care Radio Electronics Technician Name Role Phone William Najera MD Primary Care Provider Byron Mena Unavailable [phone] Allergies Allergen (clinical drug ingredient) Drug/Non Drug Allergy documented on EMR Reaction Allergy Type Onset Date Status Biaxin stomach pain and diarrhea Drug Allergy Active Results Component Value Reference Range Notes Complete Blood Count Auto Di ff Reviewed date:05/06/2025 08:47:44 AM Interpretation: Performing Lab:[facility], [address] [place] [phone] Notes/Report: White Blood Count 5.2 4.8-10.8 X10*3/uL [...] ff Reviewed date:05/23/2025 11:20:40 PM Interpretation: Performing Lab:[facility], [address] [place] [phone] Notes/Report: White Blood Count 4.7 4.8-10.8 X10*3/uL [...] X10*3/uL Complete Blood Count Auto Di ff (Not yet reviewed by provider) Interpretation: Performing Lab:[facility], [address] [place] [phone] Notes/Report: White Blood Count 4.7 4.8-10.8 X10*3/uL [...] Abs Auto 0.000 0.0-0.012 X10*3/uL IRON PROFILE (Not yet review ed by provider) Interpretation: Performing Lab:[facility], [address] [place] [phone] Notes/Report: Iron 32 30-160 mcg/dL Total Iron Binding Capacity 267 228-428 mcg/d L Percent Iron Saturation 12 15-50 % Unsaturated Iron Binding 235 Ferritin (Not yet reviewed b y provider) Interpretation: Performing Lab:[facility], [address] [place] [phone] Notes/Report: Ferritin 26 10-250 ng/mL Reason For Referral No Information Medications Medication [...] Problem Status W/U Status Risk Notes Problem 566284245 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 Problem Diverticular disease of colon (280955308) Diverticulosis of large intestine without perforation or abscess without bleeding (K57.30) Active confirmed Problem Iron deficiency anemia (19087200) Iron deficiency anemia (D50.9) Active confirmed Problem 91089243 Heme + stool (R19.5) Active confirmed Problem Anemia (638120130) Anemia (D64.9) Active confirmed Problem 549393893 Iron deficiency anemia due to chronic blood loss (D50.0) Active confirmed Problem Hemorrhage of colon due to diverticulosis (015180523141756) Diverticulosis of colon with hemorrhage (K57.31) Active confirmed Problem Anemia due to blood loss (965810142) Anemia due to blood loss (D50.0) Active confirmed Problem 024997414 Gastroesophageal reflux disease, unspecified whether esophagitis present (K21.9) Active confirmed Problem 3065015764647 C. difficile diarrhea (A04.72) Active confirmed Vital Signs Blood pressure diastolic 77 mm Hg 05/05/2025 Height 64 in 05/05/2025 Blood pressure systolic 111 mm Hg 05/05/2025 Weight 139 lbs 05/05/2025 BMI 23.86 kg/m2 05/05/2025 Encounters Encounter Location Date Provider Diagnosis [facility] [address] [place] [address] 05/05/2025 Byron Nielsen Diverticulosis of [place] with hemorrhage K57.31 and Anemia due to blood loss D50.0 [facility] [address] [place] [phone] 05/01/2025 Byron Nielsen [facility] [address] [place] [address] 05/23/2025 Byron Nielsen Anemia D64.9 Assessments Encounter [...] w DIFF 05/23/2025 CBC w DIFF 05/05/2025 Complete Blood Count Auto Diff IRON PROFILE 06/27/2025 Ferritin 04/24/2023 Ferritin 05/23/2025 Ferritin 06/27/2025 Future Test Test Name Order Date UPPER GI ENDOSCOPY 01/18/2023 COLONOSCOPY 01/18/2023 Next Appt Details Provider Name:Byron Nielsen , 09/08/2025 10:30:00 AM, [address], [address], [place], [address], Insurance Providers Payer Name Payer Address Payer Phone Subscriber Number Group Number Insured Name Patient Relationship to Insured Coverage Start Date Coverage End Date MEDICARE OF [place] [address] [facility] [place] [address] [id number] LING FAYE Self - patient is the insured [facility] [address] [address] [place] [address] [id number] LING FAYE Self - patient is the insured Medical (General) History Medical History History ICD Code Bronchiectasis-followed by [facility] Pul onolgy Kidney stones Grave's disease Denies [place],DM,CVA,renal disease Reported negative colonoscop y in [address] Andino in [place], and also approx. 10 years before that as well with Dr. Andino GERD- Reported negtaive EGD [place] [address] Andino except for a hiatal hernia Asymptomatic gallstones seen on 01/2023 CT scan-D/W patient at the 01/18/2023 OV Hyperlipidemia Iron deficiency anemia in [facility] of 2022- upper endoscopy revealed only [...]
--- OUTSIDE RECORDS SUMMARY | 2025-07-30 19:58 | XMS_ITS | Patient Health Record ---
Author Organization [facility] Address [address] [place] [address] Care Team Providers Care Aids Counselor Name Role Phone William Najera MD Primary Care Provider Vilma Daugherty Unavailable [phone] Allergies Allergen (clinical drug ingredient) Drug/Non Drug [...] W/U Status Risk Notes Problem Plantar wart (59226961) Plantar wart (B07.0) Active confirmed Vital Signs Blood pressure diastolic 60 mm Hg 02/19/2025 Height 5 ft 4inch in 02/19/2025 Blood pressure systolic 130 mm Hg 02/19/2025 Weight 135 lbs 02/19/2025 BMI 23.17 kg/m2 02/19/2025 Encounters Encounter Location Date Provider Diagnosis [address] [address] 02/19/2025 Vilma Hussein Right foot pain M79.671 and Plantar wart B07.[address] [facility] [address] 01/07/2025 Vilma Jovita Assessments Encounter Date Diagnosis [...] [employer] [address] [place] [address] [id number] Marielle Valdivia Self - patient is the insured 1 [facility] Medicare-309 95 [address] [address] [place] [address] [id number] Marielle Valdivia Self - patient is the insured Medical (General) History Medical History History ICD Code Anemia Back,Hip,and Knee pain Arthritis Lung disease Osteoporosis Reflux ( GERD) Measles Chicken pox Joint implants/screws Transfusions Cataracts Surgical History Surgery Date(Month/Year) [facility] Left hip 2011 [facility] Right hip 2013
== END 2025-07-30 16:29 | disposition home or self-care (01) ==
LOC: HO.CT 16:28
PROVIDERS: PCP Internal Medicine; Visit Provider Internal Medicine
DX: R91.1 Solitary pulmonary nodule (principal)
CPT/HCPCS: 71250

== ENCOUNTER → 2025-07-30 16:36 | Outpatient (BNV) | payer MEDICARE, OTHER, SELFPAY | PROVIDERS: PCP Internal Medicine; Visit Provider Radiology Diagnostic Radiology | DX: J44.9 Chronic obstructive pulmonary disease, unspecified (principal); J47.9 Bronchiectasis, uncomplicated; J98.11 Atelectasis; N20.0 Calculus of kidney; R91.8 Other nonspecific abnormal finding of lung field | CPT/HCPCS: 71250 ==

== ENCOUNTER 2025-08-04 09:18 | Outpatient (REF) | payer MEDICARE, OTHER, SELFPAY ==
--- OUTSIDE RECORDS SUMMARY | 2025-04-21 06:02 | XMS_ITS ---
Author Organization William Najera MD Address [address] [place] [phone] Care Team Providers Care General Studies Program Chair Name Role Phone William Najera Primary Care Provider [phone] REASON FOR VISIT Chest CT due Encounters Encounter Location Date Provider Diagnosis William Najera MD [facility] [address] [place] [phone] 04/21/2025 William Najera Plan Of Treatment Next Appt Details Provider Name:William lama, 08/06/2025 10:30:00 AM, [address] [place] [address], [address] [place] [address], [phone], Provider Name:William lama, 08/11/2025 07:45:00 AM, [address] [place] [address], [address] [place] [address], [phone], Provider Name:William Enciso ier, 11/30/2025 08:00:00 AM, [address] [place] [address], [address], [place], [place], [phone], Provider Name:William Enciso ier, 12/03/2025 10:45:00 AM, [address] [place] [address], [address], [place], [place], [phone], Provider Name:William Enciso ier, 05/27/2026 08:00:00 AM, [address] [place] [address], [address], [place], [place], [phone], Provider Name:William Enciso ier, 06/03/2026 11:00:00 AM, [address] [place] [address], [address], [place], [place], [phone], Progress Notes * Marielle VALDIVIA LDOB:[birth year] (79 yo F)Acc No.[id number]:04/21/2025 Patient: Marielle SMITH :1945 A ge:79 Y S ex:Female Address:[address] [place] [address] [place] [address] * true * Date: Generated for Jhony pepe/Barrington/eTpatsysmitting on: 0 08/04/2025 10:05 AM EDT
--- OUTSIDE RECORDS SUMMARY | 2025-05-01 07:30 | XMS_ITS ---
Author Organization William Najera MD Address [address] [place] [phone] Care Team Providers Care Hematology Specialist Name Role Phone William Najera Primary Care Provider Allergies Allergen (clinical drug ingredient) Drug/Non Drug Allergy documented on EMR Reaction Allergy Type Onset Date Status Biaxin severe diarrhea Drug Allergy A ctive Results Component Value Reference Range Notes Complete Blood Count Auto Di ff Reviewed date:05/01/2025 03:54:44 PM Interpretation: Performing Lab:[facility] [facility], [address] [place] [id number] Notes/Report: White Blood Count 5.1 4.8-10.8 X10*3/uL Red Blood Count 3.30 4.20-5.50 X10*6/uL Hemoglobin 9.4 12.0-16.0 g/dl Hematocrit 28.7 37.0-47.0 % Mean Corpuscular Volume 87.0 80.0-98.0 fL Mean Corpuscular Hemoglobin 28.5 27.0-33.0 pg Mean Corpuscular HGB Conc 32.8 31.0-35.0 g/dl Red Cell Distribution Width 13.5 11.0-16.0 % Platelet Count 200 160-400 X10*3/uL Mean Platelet Volume 10.1 9.4-12.3 fL Neutrophils Percent Auto 58.7 45-73 % Imm Gran Pct Auto 0.2 0.0-0.4 % Lymphocytes Percent Auto 26.6 20-40 % Monocytes Percent Auto 10.6 2-11 % Eosinophils Percent Auto 3.1 0-4 % Basophils Percent Auto 0.8 0-2 % NRBC Pct Auto 0.0 0.0-0.2 /100WBC Neutrophils Absolute Auto 3.0 2.0-8.3 x10*3/u L Imm Gran Abs Auto 0.01 0.00-0.03 X10*3/uL Lymphocytes Absolute Auto 1.4 1.2-4.9 X10*3/u L Monocytes Absolute Auto 0.5 0.1-1.2 X10*3/uL Eosinophils Absolute Auto 0.2 0.0-0.4 X10*3/u L Basophils Absolute Auto 0.0 0.0-0.2 X10*3/uL NRBC Abs Auto 0.000 0.0-0.012 X10*3/uL Reason For Referral Reason Rectal bleeding ne eds an appt for next week lab for CBC drawn today before 12 noon, lab results pending will fax over as soon as we get them Diagnosis 1 Rectal bleeding (K62 .5) Referral Organization William Najera MD Referring Provider First Name William Referring Provider Last Name Dania Referring Provider Speciality Internal M edicine Referred Provider Byron Gant Referred Provider Specialty Gastroentero logy General Notes Dorcas Hill 0 05/01/2025 12:00:33 PM >referral info faxed, Dorcas Hill 05/04/2025 10:01:37 AM > spoke with office, they spoke with patient and told her if she was still bleeding that she needed to go to [place] [facility] [place]. Dr. Gant would follow up with her after that. Spoke with patient she is aware of this. Referral Priority Routine Referral Appointment Date 05/05/2025 REASON FOR VISIT rectal bleeding x 3 days Medications Medication SIG (Take, Route, Frequency, Duration) Notes Start Date End Date Status Atorvastatin Calcium 40 MG TAKE 1 TABLET BY MOUTH EVERY DAY for 90 Active Metoprolol Tartrate 25 MG 1 tablet with food Orally Twice a day for 30 day(s) Active Ferrous Sulfate 325 (65 Fe) MG 1 tablet Orally twice a day Not-Taking Tessalon Perles 100 MG 1 capsule as need ed Orally Three times a day for 10 days 07/29/2019 Not-Taking Vitamin D 50 MCG (1999 UT) 1 tablet Oral ly Once a day Active Evenity 105 MG/1.17ML 2.34 mL Subcutaneous Active Propylthiouracil 50 MG 1 tablet Orally o nce a day Active One Daily For Women Orally Active Omeprazole 20 MG 2 capsule 30 minutes before morning meal Orally Once a day Active Probiotic Orally Active Vital Signs Blood pressure systolic 132 mm Hg 05/01/20 25 Blood pressure diastolic 76 mm Hg 025 Height 66 in 05/01/2025 Weight 139 lbs 05/01/2025 BMI 22.43 kg/m2 05/01/2025 Encounters Encounter Location Date Provider Diagnosis William Najera MD [address] [place] [address] [place] [phone] 05/01/2025 William Najera Rectal bleeding K62.5 Assessments Encounter Date Diagnosis (ICD Code) Assessment Notes Treatment Notes Treatment Clinical Notes Section Notes 05/01/2025 Rectal bleeding (ICD-10 - K62.5) should follow up aleta gant next week possible a diverticula bleed Plan Of Treatment Treatment Notes Assessment Notes Rectal bleeding should follow up aleta gant next week possible a diverticula bleed Referrals Referral Date Details 05/01/2025 05/01/2025, Rectal b ezekiel needs an appt for next week lab for CBC drawn today before 12 noon, lab results pending will fax over as soon as we get them, Byron Gant Next Appt Details Provider Name:William lama, 08/06/2025 10:30:00 AM, [address] [place] [address], [address], [place], [place], [phone], Provider Name:William lama, 08/11/2025 07:45:00 AM, [address] [place] [address], [address], [place], [place], [phone], Provider Name:William Enciso ier, 11/30/2025 08:00:00 AM, [address] [facility], [address], [place], [phone], Provider Name:William Enciso ier, 12/03/2025 10:45:00 AM, [address], [address] [facility], [place], [phone], Provider Name:William Enciso ier, 05/27/2026 08:00:00 AM, [address] [place] [address], Suite [facility], [place], [phone], Provider Name:William Enciso ier, 06/03/2026 11:00:00 AM, [address] [place] [address], Suite [facility], [place], [place], [phone], Progress Notes * Marielle VALDIVIA LDOB:[birth year] (79 yo F)Acc No.[id number]:05/01/2025 Progress Notes Patient: Marielle SMITH Provider: Edenilson Najera MD :1945 A ge:79 Y S ex:Female Date:05/01/2025 Address:[address] [place] [address] [id number] Subjective: * Chief Complaints: * R ectal bleeding x 3 days * HPI: S ymptom(s): patient is a 79 yo female here as an emergency for rectal bleeding. last couple days. this morning passed a blood clot. called dr gant office and they said call your primary. * ROS: G eneral/Constitutional: Denies C hills. D enies F atigue. D enies F ever. D enies H eadache. E NT: Denies S ore throat. R espiratory: Denies C ough. D enies S hortness of breath at rest. D enies S hortness of breath with exertion. G astrointestinal: Admits B lood in stool. D enies D iarrhea. D enies N ausea. A dmits R ectal bleeding. * Medical History: * Surgical History: * Hospitalization/Major Diagno stic Procedure: * Medications: T akingEvenity 105 MG/1.17ML Solution Prefilled Syringe 2.34 mL Subcutaneous Propylthiouracil 50 MG Tablet 1 tablet Orally once a day One Daily For Women Tablet Orally Omeprazole 20 MG Capsule Delayed Release 2 capsule 30 minutes before morning meal Orally Once a day Probiotic Capsule Orally Vitamin D 50 MCG (2000 UT) Tablet 1 tablet Orally Once a day Atorvastatin Calcium 40 MG Tablet TAKE 1 TABLET BY MOUTH EVERY DAY Metoprolol Tartrate 25 MG Tablet 1 tablet with food Orally Twice a day Taking Evenity 105 MG/1.17ML Solution Prefilled Syringe 2.34 mL Subcutaneous Taking Propylthiouracil 50 MG Tablet 1 tablet Orally once a day Taking One Daily For Women Tablet Orally Taking Omeprazole 20 MG Capsule Delayed Release 2 capsule 30 minutes before morning meal Orally Once a day Taking Probiotic Capsule Orally Taking Vitamin D 50 MCG (2000 UT) Tablet 1 tablet Orally Once a day Taking Atorvastatin Calcium 40 MG Tablet TAKE 1 TABLET BY MOUTH EVERY DAY Taking Metoprolol Tartrate 25 MG Tablet 1 tablet with food Orally Twice a day Not-Taking/PRNFerrous Sulfate 325 (65 Fe) MG Tablet 1 tablet Orally twice a day Tessalon Perles 100 MG Capsule 1 capsule as needed Orally Three times a day Medication List reviewed and reconciled with the patientNot-Taking/PRN Ferrous Sulfate 325 (65 Fe) MG Tablet 1 tablet Orally twice a day Not-Taking/PRN Tessalon Perles 100 MG Capsule 1 capsule as needed Orally Three times a day Medication List reviewed and reconciled with the patient * Allergies: B iaxin: severe diarrheayes[Allergies Verified] Objective: * Vitals: H t: 66, Wt: 139, BMI:22.43, BP:132/76, Wt-k.05. * Examination: G eneral Examination: GENERAL APPEARANCE: w ell developed, well nourished. HEAD: n ormocephalic. SKIN: g ood turgor. HEART: r egular rate and rhythm with occasional ectopic beat. LUNGS: n o wheezes, rales, rhonchi, good air movement, clear to auscultation bilaterally. RECTAL EXAM: j ust burgundy blood. Assessment: * Assessment: 1. R ectal bleeding - K62.5 (Primary) Plan: * Treatment: * Procedure Codes: 3 6415 VENIPUNCT, ROUTINE* * * Sign off status: Completed true * Provider: Edenilson Najera MD Date: 0 05/01/2025 Generated for Printi my/Barrington/eTransmitting on: 0 08/04/2025 10:05 AM EDT History and Physical Notes * HPI (History of Present Illness) Category Sub-Category Detail Notes Category Not es Symptom(s) patient is a 79 yo female here as an emergency for rectal bleeding. last couple days. this morning passed a blood clot. called dr gant office and they said call your primary. Examination Category Sub-Category Detail Notes Category Not es General Examination GENERAL APPEARANCE: well developed , well nourished HEAD: normocephalic HEART: regular rate and rhy thm with occasional ectopic beat LUNGS: no wheezes, rales, r honchi, good air movement, clear to auscultation bilaterally SKIN: good turgor RECTAL EXAM: just burgundy blood Consultation Request Notes Referral Date Referring Provider Referred Provider Not es 05/01/2025 William Najera Robert Rectal ble susan needs an appt for next week lab for CBC drawn today before 12 noon, lab results pending will fax over as soon as we get them
--- OUTSIDE RECORDS SUMMARY | 2025-05-07 05:35 | XMS_ITS ---
Author Organization William Najera MD Address [address] [place] [phone] Care Team Providers Care Lineworker Name Role Phone William Najera Primary Care Provider REASON FOR VISIT ER Encounters Encounter Location Date Provider Diagnosis William Najera MD 10 [facility] [address] [place] [phone] 05/07/2025 William Najera Plan Of Treatment Next Appt Details Provider Name:William lama, 08/06/2025 10:30:00 AM, [address] [place] [address], [address], [phone], Provider Name:William lama, 08/11/2025 07:45:00 AM, [address] [place] [address], [address], [phone], Provider Name:William Enciso ier, 11/30/2025 08:00:00 AM, [address] [facility] [address], [address], [place], [phone], Provider Name:William Enciso ier, 12/03/2025 10:45:00 AM, [address] [facility], [address], [place], [phone], Provider Name:William Enciso ier, 05/27/2026 08:00:00 AM, [address] [place] [address], [address], [place], [phone], Provider Name:William Enciso ier, 06/03/2026 11:00:00 AM, [address] [place] [address], [address], [place], [phone], Progress Notes * Marielle VALDIVIA LDOB:[birth year] (79 yo F)Acc No.[id number]:05/07/2025 Patient: Marielle SMITH :1945 A ge:79 Y S ex:Female Address:[address] [place] [address] [place] [address] * true * Date: Generated for Jhony pepe/Barrington/eTransmitting on: 0 08/04/2025 10:04 AM EDT
--- OUTSIDE RECORDS SUMMARY | 2025-05-26 03:00 | XMS_ITS ---
Author Organization William Najera MD Address [address] [place] [phone] Care Team Providers Care Returning Officer Name Role Phone William Najera Primary Care Provider [phone] Results Component Value Reference Range Notes Liver Panel Reviewed date:05/26/2025 12:29:43 PM Interpretation: Performing Lab:[facility], [address] [place] [phone] Notes/Report: Bilirubin Total 0.6 0.0-1.0 mg/dL Bilirubin Direct 0.3 0.0-0.5 mg/dL Aspartate Amino Transferase 32 5-31 U/L Alanine Aminotransferase 27 0-31 U/L Total Protein 7.0 6.5-8.0 g/dL Albumin Level 4.2 3.5-5.0 g/dL Alkaline Phosphatase 120 39-117 U/L Lipid Panel with Reflex Reviewed date:05/26/2025 12:31:57 PM Interpretation: Performing Lab:[facility], [address] [facility], [place] [address] Notes/Report: Triglycerides 69 <150 mg/dL Desirable Triglyceride: [...] Location Date Provider Diagnosis William Najera MD [address] [place] [address] [place] [phone] 05/26/2025 William Najera Hypercholesteremia E 78.00 Assessments Encounter Date Diagnosis (ICD Code) Assessment Notes Treatment Notes Treatment Clinical Notes Section Notes 05/26/2025 Hypercholesteremia (ICD-10 - E78.00) Plan Of Treatment Next Appt Details Provider Name:William lama, 08/06/2025 10:30:00 AM, [address] [place] [address], [address], [phone], Provider Name:William lama, 08/11/2025 07:45:00 AM, [address] [place] [address], [address], [phone], Provider Name:William lama, 11/30/2025 08:00:00 AM, [address] [place] [address], [address], [phone], Provider Name:William lama, 12/03/2025 10:45:00 AM, [address] [place] [address], [address], [phone], Provider Name:William Enciso ier, 05/27/2026 08:00:00 AM, [address], [address], [place], [phone], Provider Name:William Enciso ier, 06/03/2026 11:00:00 AM, [address], [address], [place], [phone], Progress Notes * Marielle VALDIVIA LDOB:[birth year] (79 yo F)Acc No.[id number]:05/26/2025 Progress Note Patient: Marielle SMITH Provider: Edenilson Najera MD :1945 A ge:79 Y S ex:Female Date:05/26/2025 Address:[address] [place] [address], [id number] Subjective: * Chief Complaints: * 1 . [...] Sign off status: Pending * Provider: Edenilson Njaera MD Date: 05/26/2025 Generated for Jhony pepe/Barrington/Ramonsmitting on: 08/04/2025 10:04 AM EDT
--- OUTSIDE RECORDS SUMMARY | 2025-06-02 06:30 | XMS_ITS ---
Author Organization William Najera MD Address [address] [place] [phone] Care Team Providers Care Automobile Glass Technician Name Role Phone William Najera Primary Care Provider Allergies Allergen (clinical drug ingredient) Drug/Non Drug Allergy documented on EMR Reaction Allergy Type Onset Date Status Biaxin severe diarrhea Drug Allergy A ctive REASON FOR VISIT COMP EXAM Medications Medication [...] Probiotic Orally Active Vitamin D 50 MCG (1999 UT) 1 [...] Location Date Provider Diagnosis William Najera MD [address] [place] [address] [place] [phone] 06/02/2025 William Najera Essential hypertensi on I10 [...] Up: 6 Months, Reason: Provider Name:William lama, 08/06/2025 10:30:00 AM, [address] [place] [address], [address], [phone], Provider Name:William lama, 08/11/2025 07:45:00 AM, [address] [place] [address], [address], [phone], Provider Name:William lama, 11/30/2025 08:00:00 AM, [address] [place] [address], [address], [phone], Provider Name:William pearsonr, 12/03/2025 10:45:00 AM, [address] [place] [address], [address], [phone], Provider Name:William lama, 05/27/2026 08:00:00 AM, [address] [place] [address], [address], [phone], Provider Name:William lama, 06/03/2026 11:00:00 AM, [address] [place] [address], [address], [phone], Progress Notes * Marielle VALDIVIA LDOB:[birth year] (79 yo F)Acc No.[id number]:06/02/2025 Patient: Marielle SMITH Provider: Edenilson Najera MD :1945 A ge:79 Y S ex:Female Date:06/02/2025 Address:[address] [place] [address] [id number] Subjective: * Chief Complaints: * C OMP [...] ast Orders: L ab:Liver Panel (Order Date - 05/26/2025) (Collection Date & Time - 05/26/2025 [...] L ab:Lipid Panel with Reflex (Order Date - 05/26/2025) (Collection Date & Time - 05/26/2025 07:00 AM) Value Reference Range Triglycerides 69 <150 - mg/dL Cholesterol 114 <200 - mg/dL LDL Cholesterol Calculated 47 <100 - mg/dL HDL Cholesterol 54 >40 - mg/dL L ab:Comprehensive Met. Panel (Order Date - 05/04/2025) (Collection Date & [...] to auscultation bilaterally. BREASTS: d one by outreach associate. ABDOMEN: s oft, nontender, nondistended, bowel sounds present, normal, no organomegaly , no masses palpable. RECTAL EXAM: d one by outreach associate. FEMALE GENITOURINARY: d one by outreach associate. EXTREMITIES: n o clubbing, cyanosis, or edema. [...] MD Date: 0 06/02/2025 Generated for Jhony pepe/Barrington/eTransmitting on: 0 08/04/2025 10:04 AM EDT History and Physical Notes * [...] Total Score: 0 Interpretation and Intervention Depression Barrera hoffmann Findings: Negative Follow-Up for Depression: : review [...] cyanosi s, or edema BREASTS: done by outreach associate RECTAL EXAM: done by outreach associate FEMALE GENITOURINARY: done by outreach associate ORAL CAVITY: mucosa moist
--- OUTSIDE RECORDS SUMMARY | 2025-08-04 10:04 | XMS_ITS | Clinical Summary ---
Author Organization [facility] Address [address] [place] [address] Phone Care Team Providers Care Platform Attendant Name Role Phone William Najera MD Primary [...] file Insurance MEDICARE PART A & B [facility] MEDICARE SUPPLEMENT MEDICARE PART A & B [facility] MEDICARE SUPPLEMENT MEDICARE PART A & B Member Subscriber Plan / Payer (Ef fective 2011-Present) Name:Marielle Valdivia Member ID:[id number] Relation to Subscriber:Self Name:Marielle Valdivia Subscriber ID:[id number] Payer ID:[id number] Group ID:Not on file Type:Medicare Address: [employer] [address] [place] [address] [place] [address] MEDICARE SUPPLEMENT MEDICARE PART A & B MEDICARE SUPPLEMENT MEDICARE PART A & [place] [address] [address] [place] [address] MEDICARE SUPPLEMENT MEDICARE PART A & B [facility] MEDICARE SUPPLEMENT MEDICARE PART A & B [employer] MEDICARE SUPPLEMENT MEDICARE PART A & B [employer] MEDICARE SUPPLEMENT MEDICARE PART A & B [facility] MEDICARE SUPPLEMENT Care Teams Platform Attendant Relationship Specialty Start Date End Date William Najera MD [address] [place] [address] [place] [address] PCP - General Internal Medicine 10/14/14 Additional Source Comments The information contained in this document represents components of the legal health record. It is not the complete legal health record.[facility]
--- OUTSIDE RECORDS SUMMARY | 2025-08-04 10:05 | XMS_ITS | Patient Health Record ---
Author Organization [facility] Address [address] [place] [address] Care Team Providers Care Tar Chaser Name Role Phone William Najera MD Primary Care Provider Byron Mena Unavailable [phone] Allergies Allergen (clinical drug ingredient) Drug/Non Drug Allergy documented on EMR Reaction Allergy Type Onset Date Status Biaxin stomach pain and diarrhea Drug Allergy Active Results Component Value Reference Range Notes Complete Blood Count Auto Di ff Reviewed date:05/06/2025 08:47:44 AM Interpretation: Performing Lab:[facility], [address] [place] [phone] Notes/Report: White Blood Count 5.2 4.8-10.8 X10*3/uL [...] ff Reviewed date:05/23/2025 11:20:40 PM Interpretation: Performing Lab:[facility], [address] [place] [phone] Notes/Report: White Blood Count 4.7 4.8-10.8 X10*3/uL [...] (Not yet reviewed by provider) Interpretation: Performing Lab:[facility], [address] [place] [phone] Notes/Report: White Blood Count 4.7 4.8-10.8 X10*3/uL [...] yet review ed by provider) Interpretation: Performing Lab:[facility] [place], [address] [place] [phone] Notes/Report: Iron 32 30-160 mcg/dL Total Iron Binding Capacity 267 228-428 mcg/d L Percent Iron Saturation 12 15-50 % Unsaturated Iron Binding 235 Ferritin (Not yet reviewed b y provider) Interpretation: Performing Lab:[facility] [place], [address] [place] [phone] Notes/Report: Ferritin 26 10-250 ng/mL Reason For [...] Problem Status W/U Status Risk Notes Problem 383152526 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 Problem Diverticular disease of colon (303267767) Diverticulosis of large intestine without perforation or abscess without bleeding (K57.30) Active confirmed Problem Iron deficiency anemia (23197558) Iron deficiency anemia (D50.9) Active confirmed Problem 64448781 Heme + stool (R19.5) Active confirmed Problem Anemia (083138992) Anemia (D64.9) Active confirmed Problem 087961871 Iron deficiency anemia due to chronic blood loss (D50.0) Active confirmed Problem Hemorrhage of colon due to diverticulosis (116745344026023) Diverticulosis of colon with hemorrhage (K57.31) Active confirmed Problem Anemia due to blood loss (121558362) Anemia due to blood loss (D50.0) Active confirmed Problem 952079246 Gastroesophageal reflux disease, unspecified whether esophagitis present (K21.9) Active confirmed Problem 0262958588711 C. difficile diarrhea (A04.72) Active confirmed Vital Signs Blood pressure diastolic 77 mm Hg 05/05/2025 Height 64 in 05/05/2025 Blood pressure systolic 111 mm Hg 05/05/2025 Weight 139 lbs 05/05/2025 BMI 23.86 kg/m2 05/05/2025 Encounters Encounter Location Date Provider Diagnosis [facility] [address] [place] [address] 05/05/2025 Byron Nielsen Diverticulosis of [place] with hemorrhage K57.31 and Anemia due to blood loss D50.0 [facility] [address] [place] [address] 05/01/2025 Byron Nielsen [facility] [address] [place] [address] 05/23/2025 Byron Nielsen Anemia D64.9 Assessments Encounter [...] Name:Byron Nielsen , 09/08/2025 10:30:00 AM, [address], [address], [place], [address], Insurance Providers Payer Name Payer Address Payer Phone Subscriber Number Group Number Insured Name Patient Relationship to Insured Coverage Start Date Coverage End Date MEDICARE OF [place] [address] [facility] [place] [address] [id number] LING FAYE Self - patient is the insured [facility] [address] [address] [place] [address] [phone] [id number] LING FAYE Self - patient is the insured Medical (General) History Medical History History ICD Code Bronchiectasis-followed by [facility] Pul onolgy Kidney stones Grave's disease Denies [place],DM,CVA,renal disease Reported negative colonoscop y in [address] Andino in [place], and also approx. 10 years before that as well with Dr. Andino GERD- Reported negtaive EGD [place] [address] Andino except for a hiatal hernia Asymptomatic gallstones seen on 01/2023 CT scan-D/W patient at the 01/18/2023 OV Hyperlipidemia Iron deficiency anemia in [facility] of 2022- upper endoscopy revealed only [...]
--- OUTSIDE RECORDS SUMMARY | 2025-08-04 10:05 | XMS_ITS | Patient Health Record ---
Author Organization [facility] Address [address] [place] [address] Care Team Providers Care Quality Compliance Manager Name Role Phone William Najera MD Primary Care Provider Vilma Daugherty Unavailable [phone] Allergies Allergen (clinical drug ingredient) Drug/Non Drug [...] W/U Status Risk Notes Problem Plantar wart (50751486) Plantar wart (B07.0) Active confirmed Vital Signs Blood pressure diastolic 60 mm Hg 02/19/2025 Height 5 ft 4inch in 02/19/2025 Blood pressure systolic 130 mm Hg 02/19/2025 Weight 135 lbs 02/19/2025 BMI 23.17 kg/m2 02/19/2025 Encounters Encounter Location Date Provider Diagnosis [address] [address] 02/19/2025 Vilma Hussein Right foot pain M79.671 and Plantar wart B07.[address] [facility] [address] 01/07/2025 Vilma Jovita Assessments Encounter Date Diagnosis [...] [employer] [address] [place] [address] [id number] Marielle Valdivia Self - patient is the insured 1 [facility] Medicare-309 95 [address] [address] [place] [address] [id number] Marielle Valdivia Self - patient is the insured Medical (General) History Medical History History ICD Code Anemia Back,Hip,and Knee pain Arthritis Lung disease Osteoporosis Reflux ( GERD) Measles Chicken pox Joint implants/screws Transfusions Cataracts Surgical History Surgery Date(Month/Year) [facility] Left hip 2011 [facility] Right hip 2013
--- OUTSIDE RECORDS SUMMARY | 2025-08-04 10:05 | XMS_ITS | Patient Health Record ---
Author Organization William Najera MD Address [address] [place], [place] [id number] Care Team Providers Care Regulatory Attorney Name Role Phone William Najera Primary Care Provider [phone] Allergies Allergen (clinical drug ingredient) Drug/Non Drug Allergy documented on EMR Reaction Allergy Type Onset Date Status Biaxin severe diarrhea Drug Allergy A ctive Results Component Value Reference Range Notes Complete Blood Count Auto Di ff Reviewed date:11/14/2024 05:09:29 PM Interpretation: Performing Lab:[facility], [address] [place] [phone] Notes/Report: White Blood Count 4.7 4.8-10.8 X10*3/uL [...] Panel Reviewed date:11/14/2024 01:25:15 PM Interpretation: Performing Lab:[address] [phone] Notes/Report: Bilirubin Total 0.7 0.0-1.0 mg/dL Bilirubin Direct 0.3 0.0-0.5 mg/dL Aspartate Amino Transferase 30 5-31 U/L Alanine Aminotransferase 27 0-31 U/L Total Protein 7.5 6.5-8.0 g/dL Albumin Level 4.1 3.5-5.0 g/dL Alkaline Phosphatase 112 39-117 U/L Lipid Panel with Reflex Reviewed date:11/14/2024 05:09:12 PM Interpretation: Performing Lab:[address] [phone] Notes/Report: Triglycerides 58 <150 mg/dL Desirable Triglyceride: [...] Panel Reviewed date:05/26/2025 12:29:43 PM Interpretation: Performing Lab:[facility], [address] [place] [phone] Notes/Report: Bilirubin Total 0.6 0.0-1.0 mg/dL Bilirubin Direct 0.3 0.0-0.5 mg/dL Aspartate Amino Transferase 32 5-31 U/L Alanine Aminotransferase 27 0-31 U/L Total Protein 7.0 6.5-8.0 g/dL Albumin Level 4.2 3.5-5.0 g/dL Alkaline Phosphatase 120 39-117 U/L Lipid Panel with Reflex Reviewed date:05/26/2025 12:31:57 PM Interpretation: Performing Lab:[facility], [address] [place] [phone] Notes/Report: Triglycerides 69 <150 mg/dL Desirable Triglyceride: [...] ff Reviewed date:05/01/2025 03:54:44 PM Interpretation: Performing Lab:[facility], [address] [place] [phone] Notes/Report: White Blood Count 5.1 4.8-10.8 X10*3/uL [...] X10*3/uL NRBC Abs Auto 0.000 0.0-0.012 X10*3/uL Alan Emerson Reviewed date:11/14/2024 01:25:22 PM Interpretation: Performing Lab:[facility], [address] [place] [phone] Notes/Report: Hold Gold See Note Specimen held untested for 24 hours; Call to request Chemistry testing. Complete Blood Count no Diff Reviewed date:05/05/2025 08:44:21 AM Interpretation: Performing Lab:[facility], [address] [place] [phone] Notes/Report: White Blood Count 5.3 4.8-10.8 X10*3/uL [...] ff Reviewed date:05/05/2025 10:26:04 AM Interpretation: Performing Lab:[facility], [address] [place] [phone] Notes/Report: White Blood Count 5.9 4.8-10.8 X10*3/uL [...] INR Reviewed date:05/05/2025 10:25:36 AM Interpretation: Performing Lab:[address] [phone] Notes/Report: Prothrombin Time 11.9 10.9-12.4 [employer] [...] OBSX1 Reviewed date:05/05/2025 08:44:28 AM Interpretation: Performing Lab:[address] [phone] Notes/Report: OBS1 POSITIVE NEGATIVE Comprehensive Met. Panel Reviewed date:05/05/2025 10:26:23 AM Interpretation: Performing Lab:[address] [phone] Notes/Report: Sodium 145 135-145 mmol/L Potassium 3.6 [...] Magnesium Reviewed date:05/05/2025 08:44:43 AM Interpretation: Performing Lab:[address] [phone] Notes/Report: Magnesium 1.9 1.6-2.6 mg/dL Hold Ki Reviewed date:05/26/2025 12:30:32 PM Interpretation: Performing Lab:[address] [phone] Notes/Report: Alan Emerson See Note Specimen held untested for 24 hours; Call to request Chemistry testing. Complete Blood Count Auto Di ff Reviewed date:06/28/2025 03:20:20 PM Interpretation: Performing Lab:[address] [phone] Notes/Report: White Blood Count 4.7 4.8-10.8 X10*3/uL [...] PROFILE Reviewed date:06/28/2025 03:06:49 PM Interpretation: Performing Lab:[facility], [address] [place] [phone] Notes/Report: Iron 32 30-160 mcg/dL Total Iron Binding Capacity 267 228-428 mcg/dL Percent Iron Saturation 12 15-50 % Unsaturated Iron Binding 235 Ferritin Reviewed date:06/28/2025 03:06:57 PM Interpretation: Performing Lab:[facility], [address] [place] [phone] Notes/Report: Ferritin 26 10-250 ng/mL CT chest wo con Reviewed date:07/31/2025 02:20:16 PM Interpretation: Performing Lab: Notes/Report: [address] [address] [address] Scan Report Signed Patient: Marielle Valdivia MR#: [id number] 8 : 1945 Acct:[id number] Age/Sex: 79 / F ADM Date: 07/30/25 Loc: HO.CT Attending Dr: William Najera MD Ordering Physician: William Najera MD Date of Service: 07/30/25 Procedure(s): CT chest wo IV con Accession Number(s): [id number] cc: William Najera MD Report Number: [id number]: Total DLP = 107.00 mGy-cm Reason for [...] 07/30/25 1723 DD/ 1636 TD/TT: 07/30/25 1642 Information Technology Auditor: [place] [address] CT Scan Report Signed Patient: Shanika Valdivia MR#: [id number] 8 : 1945 Acct:[id number] Age/Sex: 79 / F ADM Date: 07/30/25 Loc: .CT Attending Dr: William Najera MD Ordering Physician: William Najera MD Date of Service: 07/30/25 Procedure(s): CT mary[address] st wo IV con Accession Number(s): [id number] cc: William Najera MD Report Number: [id number]: Total DLP = 107.00 mGy-cm Reason for [...] Jose Ibarra MD 07/30/2025 05:23 PM EDT Dictated By: Jose Ibarra MD Signed By: <Electronically signed by Jose Ibarra MD in OV> 07/30/25 1723 DD/ 1636 TD/TT: 07/30/25 1642 Information Technology Auditor: Reason For Referral Reason Rectal bleeding ne [...] that she needed to go to the [facility] ER today. Dr. Gant would follow up [...] 07/18/2024 Administer ed RSV Unknown 09/06/2024 Administered Karime Social History Tobacco Use: Social History Observation [...] Problem Status W/U Status Risk Notes Problem 21186725 Lymphocytosis (symptomatic) (D72.820) Active confirmed Problem 65375796 Age-related osteoporosis without current pathological fracture (M81.0) Active confirmed Problem 440085154 Atherosclerotic heart disease of [place] coronary artery without angina pectoris (I25.10) Active confirmed Problem Thyroid nodule (485728828) Thyroid nodule (E04.1) Active confirmed Problem Neutropenia (067863761) Neutropenia (D70.9) Active confirmed Problem Lymphocytosis (94623120) Lymphocytosis (D72.820) Active confirmed Problem 94211556 Kidney stone (N20.0) Active confirmed Problem 19682456 Essential hypertension (I10) Active confirmed Problem Solitary nodule of lung (664286961) Lung nodule (R91.1) Active confirmed Problem 496883982 Irregular heart beat (I49.9) Active confirmed Problem 311650799 History of hematuria (Z87.448) Active confirmed Problem Graves disease (660418806) Graves disease (E05.00) Active confirmed Problem 86475340 Bronchiectasis without complication (J47.9) Active confirmed Problem 279368462 Anemia, unspecif ied type (D64.9) Active confirmed Problem 733332762 Abnormal mammogr am (R92.8) Active confirmed Problem 608139661 Iron deficiency anemia due to chronic blood loss (D50.0) Active confirmed Problem 089165180 Renal cyst (N28.1) Active confirmed Problem 11217598 Atherosclerosis (I70.90) Active confirmed Problem 329660944 Pulmonary nodule (R91.1) Active confirmed Problem 042709508 Pure hypercholesterolemi a, unspecified (E78.00) Active confirmed Problem hypercholesterolemia (disorder) (52696440) Hypercholesteremia (E78.00) Active confirmed Problem 79781345 Hydronephrosis w ith urinary obstruction due to renal calculus (N13.2) Active confirmed Problem 35978447 Extrasystole (I49.49) Active confirmed Problem 69588290 Hearing loss, unspecified hearing loss type, unspecified laterality (H91.90) Active confirmed Problem 93984076859192259 Abnormal chest CT (R93.89) Active confirmed Problem 128983022 Bronchiectasis w ith acute exacerbation (J47.1) Active confirmed Problem 737716191 Irregularly irregular pulse rhythm (I49.9) Active confirmed [...] Date Provider Diagnosis William Najera MD [address] [place] [id number] 11/14/2024 William Najera Lymphocytosis D72.82 0 and Hypercholesteremia E78.00 William Najera MD [address] [place] [id number] 05/26/2025 William Najera Hypercholesteremia E 78.00 William Najera MD [address] [place] [id number] 11/14/2024 William Najera Pulmonary nodule R91 .1 ; Graves disease E05.00 ; Lymphocytosis (symptomatic) D72.820 and Pure hypercholesterolemia, unspecified E78.00 William Najera MD [address] [place] [id number] 05/01/2025 William Najera Rectal bleeding K62. 5 William Najera MD [address] [place] [id number] 06/02/2025 William Najera Essential hypertensi on I10 ; Bronchiectasis without complication J47.9 ; Iron deficiency anemia due to chronic blood loss D50.0 ; Hypercholesteremia E78.00 and Depression screening Z13.31 William Najera MD [address] [place] [id number] 10/21/2024 William Najera MD [address] [place] [id number] 04/21/2025 William Najera MD [address] [place] [id number] 05/07/2025 William Najera Assessments Encounter Date Diagnosis (ICD Code) Assessment Notes Treatment Notes Treatment Clinical Notes Section Notes 11/14/2024 Lymphocytosis (ICD-1 0 - D72.820) 11/14/2024 Hypercholesteremia (ICD-10 - E78.00) 05/26/2025 Hypercholesteremia (ICD-10 - E78.00) 11/14/2024 Pulmonary nodule (ICD-10 - R91.1) will repeat ct in 6 months and is going to see dr roque in spring her advisor consultant/ order put in future folder 11/14/2024 Graves disease (ICD- 10 - E05.00) is considering getting thyroid removed 05/01/2025 Rectal bleeding (ICD-10 - K62.5) should follow up wih dr gant next week possible a diverticula bleed [...] wo con 10/18/2023 CT chest wo con 08/31/2023 US thyroid 07/04/2022 XR chest 2V 08/24/2023 Future Test Test Name Order Date CT chest wo con 11/29/2024 CT chest wo con 05/14/2025 Next Appt Details Provider Name:William lama, 08/06/2025 10:30:00 AM, [address] [place] [address], [address] [place] [address], [phone], Provider Name:William pearsonr, 08/11/2025 07:45:00 AM, [address] [place] [address], [address] [place] [address], [phone], Provider Name:William lama, 11/30/2025 08:00:00 AM, [address] [place] [address], [address] [place] [address], [phone], Provider Name:William lama, 12/03/2025 10:45:00 AM, [address], [address], [place], [place], [phone], Provider Name:William Enciso ier, 05/27/2026 08:00:00 AM, [address], [address], [place], [place], [phone], Provider Name:William Enciso ier, 06/03/2026 11:00:00 AM, [address], [address], [place], [phone], Insurance Providers Payer Name Payer Address Payer Phone Subscriber Number Group Number Insured Name Patient Relationship to Insured Coverage Start Date Coverage End Date [employer] [address] [place] [address] [id number] Marielle Valdivia Self - patient is the insured [facility] [address] [place] [phone] [id number] Marielle Valdivia Self - patient is the insured Medical (General) History Medical History History ICD Code bone density - 11/2008; 11/2017 colonoscopy - 12/2004 dr whitt as; 08/2013 (repeat 2022)01/25/23 Colonoscopy pending path LUNG NODULE NEEDS REPEAT CT JANUARY 2014 r epeat in 2013 no need for further CAB[facility]AGE [facility]TER, 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
== END 2025-08-04 09:19 | disposition home or self-care (01) ==
LOC: HO.MAMMO 09:18
PROVIDERS: PCP Internal Medicine; Visit Provider Internal Medicine
DX: Z12.31 Encounter for screening mammogram for malignant neoplasm of breast (principal)
CPT/HCPCS: 77063; 77067

== ENCOUNTER → 2025-08-04 09:30 | Outpatient (BNV) | payer MEDICARE, OTHER, SELFPAY | PROVIDERS: PCP Internal Medicine; Visit Provider Internal Medicine | DX: Z12.31 Encounter for screening mammogram for malignant neoplasm of breast (principal) | CPT/HCPCS: 77063; 77067 ==

== ENCOUNTER 2025-09-24 12:07 | Outpatient (REF) | payer MEDICARE, OTHER, SELFPAY ==
[2025-09-24 12:17] LABS: MANUAL DIFF FLAG NO
[2025-09-24 12:32] LABS: Hematocrit 30.8 % (37.0-47.0); Hemoglobin 9.7 g/dl (12.0-16.0); Imm Gran Abs Auto 0.01 X10*3/uL (0.00-0.03); Imm Gran Pct Auto 0.2 % (0.0-0.4); Lymphocytes Absolute Auto 1.3 X10*3/uL (1.2-4.9); Mean Corpuscular HGB Conc 31.5 g/dl (31.0-35.0); Mean Corpuscular Hemoglobin 28.0 pg (27.0-33.0); Mean Corpuscular Volume 88.8 fL (80.0-98.0); NRBC Abs Auto 0.000 X10*3/uL (0.0-0.012); NRBC Pct Auto 0.0 /100WBC (0.0-0.2); Platelet Count 260 X10*3/uL (160-400); Red Blood Count 3.47 X10*6/uL (4.20-5.50); White Blood Count 4.9 X10*3/uL (4.8-10.8)
[2025-09-24 13:32] LABS: Iron 44 mcg/dL (30-160); Percent Iron Saturation 19 % (15-50); Total Iron Binding Capacity 237 mcg/dL (228-428); Unsaturated Iron Binding 193 ug/dL
[2025-09-24 13:38] LABS: Ferritin 45 ng/mL (10-250)
== END 2025-09-24 12:08 | disposition home or self-care (01) ==
LOC: HO.LAB 12:07
PROVIDERS: PCP Internal Medicine; Visit Provider Internal Medicine
DX: D50.0 Iron deficiency anemia secondary to blood loss (chronic) (principal)
CPT/HCPCS: 36415; 82728; 83540; 85025

== ENCOUNTER 2025-10-03 10:29 | Outpatient (REF) | payer MEDICARE, OTHER, SELFPAY ==
--- OUTSIDE RECORDS SUMMARY | 2025-05-07 04:35 | XMS_ITS ---
Author Organization William Najera MD Address [address] [place] [phone] Care Team Providers Care Flower Pot Press Operator Name Role Phone William Najera Primary Care Provider [phone] REASON FOR VISIT ER Encounters Encounter Location Date Provider Diagnosis William Najera MD [facility] [address] [place] [phone] 05/07/2025 William Najera Plan Of Treatment Next Appt Details Provider Name:William lama, 11/30/2025 08:00:00 AM, [address] [place] [address], [address] [place] [address], [phone], Provider Name:William lama, 12/03/2025 10:45:00 AM, [address] [place] [address], [address], [phone], Provider Name:William Enciso ier, 05/27/2026 08:00:00 AM, [address], [address], [place], [phone], Provider Name:William Enciso ier, 06/03/2026 11:00:00 AM, [address], [address], [place], [place], [phone], Progress Notes * Marielle VALDIVIA LDOB:[birth year] (79 yo F)Acc No.[id number]:05/07/2025 Patient: Micheal NELLYShanikaclarissa Toribio :1945 A ge:79 Y S ex:Female Address:[address] [place] [phone] * true * Date: Generated for Jhony pepe/Barrington/Imanitting on: 12/03/2024 10:32 AM EST
--- OUTSIDE RECORDS SUMMARY | 2025-05-26 02:00 | XMS_ITS ---
Author Organization William Najera MD Address [address] [place] [phone] Care Team Providers Care Electric Distribution Engineer Name Role Phone William Najera Primary Care Provider Results Component Value Reference Range Notes Liver Panel Reviewed date:05/26/2025 12:29:43 PM Interpretation: Performing Lab:[facility], [address] [place] [phone] Notes/Report: Bilirubin Total 0.6 0.0-1.0 mg/dL Bilirubin Direct 0.3 0.0-0.5 mg/dL Aspartate Amino Transferase 32 5-31 U/L Alanine Aminotransferase 27 0-31 U/L Total Protein 7.0 6.5-8.0 g/dL Albumin Level 4.2 3.5-5.0 g/dL Alkaline Phosphatase 120 39-117 U/L Lipid Panel with Reflex Reviewed date:05/26/2025 12:31:57 PM Interpretation: Performing Lab:[facility], [address] [facility], [place] [address] Notes/Report: Triglycerides 69 <150 mg/dL Desirable Triglyceride: less than 150 mg/dL Borderline High Triglyceride 150-199 mg/dL High Triglyceride: 200-499 mg/dL Very High Triglyceride: greater than or equal to 5OO mg/dL Cholesterol 114 <200 mg/dL Desirable Cholesterol: less than 200 mg/dL Borderline High Cholesterol: 200-239 mg/dL High Cholesterol: greater than 239 mg/dL LDL Cholesterol Calculated 47 <100 mg/dL Desirable LDL: less than 100 mg/dL Near Optimal/Above Optimal LDL: 110-129 mg/dL Borderline High LDL: 130-159 mg/dL High LDL: 160-189 mg/dL Very High LDL: greater than or equal to 190 mg/dL HDL Cholesterol 54 >40 mg/dL Desirable HDL: greater than 40 mg/dL Note: This HDL assay may give artificially low results in patients with liver disease. REASON FOR VISIT FASTING LIPIDS Encounters Encounter Location Date Provider Diagnosis William Najera MD [address] [place] [address] [place] [phone] 05/26/2025 William Najera Hypercholesteremia E 78.00 Assessments Encounter Date Diagnosis (ICD Code) Assessment Notes Treatment Notes Treatment Clinical Notes Section Notes 05/26/2025 Hypercholesteremia (ICD-10 - E78.00) Plan Of Treatment Next Appt Details Provider Name:William lama, 11/30/2025 08:00:00 AM, [address] [place] [address], [address], [phone], Provider Name:William lama, 12/03/2025 10:45:00 AM, [address] [place] [address], [address], [phone], Provider Name:iWlliam lama, 05/27/2026 08:00:00 AM, [address] [place] [address], [address], [phone], Provider Name:William lama, 06/03/2026 11:00:00 AM, [address] [place] [address], [address], [phone], Progress Notes * Marielle VALDIVIA LDOB:[birth year] (80 yo F)Acc No.[id number]:05/26/2025 Progress Note Patient: Marielle SMITH Provider: Edenilson Najera MD :1945 A ge:79 Y S ex:Female Date:05/26/2025 Address:[address] [place] [address], [id number] Subjective: * Chief Complaints: * 1 . FASTING LIPIDS. * Medical History: Objective: * Vitals: Assessment: * Assessment: 1. H ypercholesteremia - E78.00 (Primary) Plan: * Treatment: * Procedure Codes: 3 6415 VENIPUNCT, ROUTINE* * * The named appointment provid er may or may not be the originator of this progress note, and it is not deemed complete until electronically signed by the appointment provider. Sign off status: Pending * Provider: Edenilson Najera MD Date: 0 05/26/2025 Generated for Jhony pepe/Barrington/Ramonsmitting on: 1 12/03/2024 10:32 AM EST
--- OUTSIDE RECORDS SUMMARY | 2025-06-02 05:30 | XMS_ITS ---
Author Organization William Najera MD Address [address] [place] [phone] Care Team Providers Care Administrative Coordinator Name Role Phone William Najera Primary Care Provider Allergies Allergen (clinical drug ingredient) Drug/Non Drug Allergy documented on EMR Reaction Allergy Type Onset Date Status Information temporarily unavailable Biaxin severe diarrhea Drug Allergy Active REASON FOR VISIT COMP EXAM Medications Medication SIG (Take, Route, Frequency, Duration) Notes Start Date End Date Status Metoprolol Tartrate 25 MG 1 tablet with food Orally Twice a day for 30 day(s) Not-Taking Ferrous Sulfate 325 (65 Fe) MG 1 tablet Orally twice a day Not-Taking Tessalon Perles 100 MG 1 capsule as need ed Orally Three times a day for 10 days 07/29/2019 Not-Taking Probiotic Orally Active Vitamin D 50 MCG (2000 UT) 1 tablet Oral ly Once a day Active Evenity 105 MG/1.17ML 2.34 mL Subcutaneous Active Propylthiouracil 50 MG 1 tablet Orally o nce a day Active One Daily For Women Orally Active Omeprazole 20 MG 2 capsule 30 minutes before morning meal Orally Once a day Active Atorvastatin Calcium 40 MG TAKE 1 TABLET BY MOUTH EVERY DAY Active Social History Tobacco Use: Social History [...] nk containing alcohol in the past year? Monthly or less (1 point) How many drinks did you have on a typical day when you were drinking in the past year? 1 or 2 drinks (0 point) How often did you have 6 or more drinks on one occasion in the past year? Never (0 point) Points 1 Interpretation Negative Vital Signs Blood pressure systolic 124 mm Hg 06/02/20 25 Blood pressure diastolic 70 mm Hg 025 Height 66 in 06/02/2025 Weight 140 lbs 06/02/2025 BMI 22.59 kg/m2 06/02/2025 weight is up 2 pounds since 05-01-25 Encounters Encounter Location Date Provider Diagnosis William Najera MD [address] [place] [address] [place] [phone] 06/02/2025 William Najera Essential hypertensi on I10 ; Bronchiectasis without complication J47.9 ; Iron deficiency anemia due to chronic blood loss D50.0 ; Hypercholesteremia E78.00 and Depression screening Z13.31 Assessments Encounter Date Diagnosis (ICD Code) Assessment Notes Treatment Notes Treatment Clinical Notes Section Notes 06/02/2025 Essential hypertensi on (ICD-10 - I10) well controlled 06/02/2025 Bronchiectasis witho ut complication (ICD-10 - J47.9) no problems at present time, will continue to monitor 06/02/2025 Iron deficiency anem ia due to chronic blood loss (ICD-10 - D50.0) doing well, will cntinue to monitor 06/02/2025 Hypercholesteremia (ICD-10 - E78.00) stable, will continue current regiment 06/02/2025 Depression screening (ICD-10 - Z13.31) negative screen Plan Of Treatment Medication Medication Name Sig Start Date Stop Date Notes Atorvastatin Calcium 40 MG TAKE 1 TABLET BY MOUTH EVERY DAY Treatment Notes Assessment Notes Essential hypertension well controlled Bronchiectasis without complication no p mulugeta at present time, will continue to monitor Iron deficiency anemia due t o chronic blood loss doing well, will cntinue to monitor Hypercholesteremia stable, will continu e current regiment Depression screening negative screen Next Appt Details Follow Up: 6 Months, Reason: Provider Name:William lama, 11/30/2025 08:00:00 AM, [address] [place] [address], [address], [phone], Provider Name:William lama, 12/03/2025 10:45:00 AM, [address] [place] [address], [address], [phone], Provider Name:William lama, 05/27/2026 08:00:00 AM, [address] [place] [address], [address], [phone], Provider Name:William lama, 06/03/2026 11:00:00 AM, [address] [place] [address], [address], [phone], Progress Notes * Marielle VALDIVIA LDOB:[birth year] (79 yo F)Acc No.[id number]:06/02/2025 Patient: Marielle SMITH Provider: Edenilson Najera MD :1945 A ge:79 Y S ex:Female Date:06/02/2025 Address:[address] [place] [address] [place]PT[place] [phone] Subjective: * Chief Complaints: * C OMP EXAM * HPI: D epression Screening: PHQ-9 L ittle interest or pleasure in doing things N ot at all, F eeling down, depressed, or hopeless N ot at all, T rouble falling or staying asleep, or sleeping too much N ot at all, F eeling tired or having little energy N ot at all, P oor appetite or overeating N ot at all, F eeling bad about yourself or that you are a failure, or have let yourself or your family down N ot at all, T rouble concentrating on things, such as reading the newspaper or watching television N ot at all, M oving or speaking so slowly that other people could have noticed; or the opposite, being so fidgety or restless that you have been moving around a lot more than usual N ot at all, T houghts that you would be better off or of hurting yourself in some way N ot at all, T otal Score 0 . I nterpretation and Intervention D epression Screening Findings N egative, F ollow-Up for Depression : review of PHQ-9 found negative result, no follow-up needed. C ommunication Needs: Communication Needs D oes the patient have a hearing impairment Y es, I f yes, what is the hearing impairment? H jose of hearing, Hearing Aids, D oes the patient have a vision impairment? Y es, I f yes, what is the vision impairment? G lasses, D oes the patient have a cognition impairment? N o. F all Risk: History H ave you had any falls with injury in the past year? N o, H ave you had two or more falls in the past year? N o. S JERE Questions: SDOH Questions I n the past year have you been worried about losing housing? N o, I n the past year have you or any family members you live with been unable to get any of the following when it was really needed? Check all that apply: N one. S ymptom(s): patient is a 79 yo female here for visit with review of recent labs and follow up of chronic issues. * ROS: G eneral/Constitutional: Change in appetite d enies. C hills d enies. F ever d enies. O phthalmologic: Blurred vision d enies. D ischarge d enies. P ain d enies. E NT: Decreased hearing d enies. S ore throat d enies.?Swollen glands d enies. E ndocrine: Cold intolerance d enies. E xcessive thirst d enies. H eat intolerance d enies. W eight loss d enies. R espiratory: Cough d enies. S hortness of breath at rest d enies. S hortness of breath with exertion d enies. W heezing d enies. C ardiovascular: Chest pain at rest d enies. C hest pain with exertion?denies. I rregular heartbeat d enies. S hortness of breath d enies. ? G astrointestinal: Abdominal pain d enies. C hange in bowel habits d enies. D iarrhea d enies. N ausea d enies. R ectal bleeding d enies. V omiting d enies . G enitourinary: Blood in urine d enies. D ifficulty urinating d enies. F requent urination d enies. U rinary incontinence D enies. M usculoskeletal: Painful joints d enies. W eakness d enies. ? S kin: Dry skin d enies. I tching d enies. D enies?Mole(s), changes in moles, new moles or any lesions of concern. D enies P hotosensitivity. R greg d enies. N eurologic: Dizziness d enies. F ainting d enies. H eadache?denies. * Medical History: * Surgical History: * Hospitalization/Major Diagno stic Procedure: * Family History: F ather: , Unknown. M other: 47 yrs, alcohol abuse. 1 sister(s) . 1 son(s) . . Mother-Cirrhosis Patient waS ADOPTED, , No pertinent family medical history, Denies mental health/substance abuse family history, Denies mental health/substance abuse family history, Denies mental health/substance abuse family history, Denies mental health/substance abuse family history, No pertinent family medical history. * Social History: T obacco Use: T obacco Use/Smoking P atient is a f ormer smoker, H ow long has it been since you last smoked? > 10 years. D rugs/Alcohol: A lcohol Screen D id you have a drink containing alcohol in the past year? Y es, H ow often did you have a drink containing alcohol in the past year? M onthly or less (1 point), H ow many drinks did you have on a typical day when you were drinking in the past year? 1 or 2 drinks (0 point), H ow often did you have 6 or more drinks on one occasion in the past year? N ever (0 point), P oints 1 , I nterpretation N egative. M iscellaneous: C affeine: yes, frequency:, 1-2 cups per day. Children: yes. Exercise: yes, yard work walking. Home smoke detector use: yes. Housing: owning. Living with: significant other. Occupation: retired. Travel outside of the [place]: no. * Medications: T akingEvenity 105 MG/1.17ML Solution Prefilled Syringe 2.34 mL Subcutaneous Propylthiouracil 50 MG Tablet 1 tablet Orally once a day One Daily For Women Tablet Orally Omeprazole 20 MG Capsule Delayed Release 2 capsule 30 minutes before morning meal Orally Once a day Probiotic Capsule Orally Vitamin D 50 MCG (1999 UT) Tablet 1 tablet Orally Once a day Atorvastatin Calcium 40 MG Tablet TAKE 1 TABLET BY MOUTH EVERY DAY Taking Evenity 105 MG/1.17ML Solution Prefilled Syringe 2.34 mL Subcutaneous Taking Propylthiouracil 50 MG Tablet 1 tablet Orally once a day Taking One Daily For Women Tablet Orally Taking Omeprazole 20 MG Capsule Delayed Release 2 capsule 30 minutes before morning meal Orally Once a day Taking Probiotic Capsule Orally Taking Vitamin D 50 MCG (1999 UT) Tablet 1 tablet Orally Once a day Taking Atorvastatin Calcium 40 MG Tablet TAKE 1 TABLET BY MOUTH EVERY DAY Not-Taking/PRNMetoprolol Tartrate 25 MG Tablet 1 tablet with food Orally Twice a day Ferrous Sulfate 325 (65 Fe) MG Tablet 1 tablet Orally twice a day Tessalon Perles 100 MG Capsule 1 capsule as needed Orally Three times a day Medication List reviewed and reconciled with the patientNot-Taking/PRN Metoprolol Tartrate 25 MG Tablet 1 tablet with food Orally Twice a day Not-Taking/PRN Ferrous Sulfate 325 (65 Fe) MG Tablet 1 tablet Orally twice a day Not-Taking/PRN Tessalon Perles 100 MG Capsule 1 capsule as needed Orally Three times a day Medication List reviewed and reconciled with the patient * Allergies: B iaxin: severe diarrheayes[Allergies Verified] Objective: * Vitals: H t: 66, Wt: 140, BMI:22.59, BP:124/70, Wt-k.5. weight is up 2 pounds since 05-01-25. * P ast Orders: L ab:Liver Panel (Order Date 05/26/2025) (Collection Date & Time - 05/26/2025 07:00 AM) Value Reference Range Bilirubin Total 0.6 0.0-1.0 - mg/dL Bilirubin Direct 0.3 0.0-0.5 - mg/dL Aspartate Amino Transferase 32 H 5-31 - U/L Alanine Aminotransferase 27 0-31 - U/L Total Protein 7.0 6.5-8.0 - g/dL Albumin Level 4.2 3.5-5.0 - g/dL Alkaline Phosphatase 120 H 39-117 - U/L L ab:Lipid Panel with Reflex (Order Date 05/26/2025) (Collection Date & Time - 05/26/2025 07:00 AM) Value Reference Range Triglycerides 69 <150 - mg/dL Cholesterol 114 <200 - mg/dL LDL Cholesterol Calculated 47 <100 - mg/dL HDL Cholesterol 54 >40 - mg/dL L ab:Comprehensive Met. Panel (Order Date 05/04/2025) (Collection Date & Time - 05/04/2025 01:52 PM) Value Reference Range Sodium 145 135-145 - mmol/L Bilirubin Total 0.4 0.0-1.0 - mg/dL Aspartate Amino Transferase 27 5-31 - U/L Alanine Aminotransferase 22 0-31 - U/L Total Protein 6.8 6.5-8.0 - g/dL Albumin Level 4.0 3.5-5.0 - g/dL Alkaline Phosphatase 102 39-117 - U/L Potassium 3.6 3.3-5.1 - mmol/L Chloride 112 H 96-108 - mmol/L Carbon Dioxide 26 22-29 - mmol/L Anion Gap 11 L 12-20 - Blood Urea Nitrogen 20 H 9-16 - mg/dL Creatinine 0.74 0.5-1.4 - mg/dL Estimated Glomerular Filt Rate > 60 - Glucose Random 94 60-115 - mg/dL Calcium 8.7 8.4-10.2 - mg/dL Creatinine Clr Calc Pharmacy 54.1 - L ab:Magnesium (Order Date - 05/04/2025) (Collection Date & Time - 05/04/2025 01:52 PM) Value Reference Range Magnesium 1.9 1.6-2.6 - mg/dL L ab:Complete Blood Count no Diff (Order Date - 05/04/2025) (Collection Date & Time - 05/04/2025 07:50 PM) Value Reference Range White Blood Count 5.3 4.8-10.8 - X10*3/uL Red Blood Count 2.92 L 4.20-5.50 - X10*6/uL Hemoglobin 8.3 L 12.0-16.0 - g/dl Hematocrit 25.2 L 37.0-47.0 - % Mean Corpuscular Volume 86.3 80.0-98.0 - fL Mean Corpuscular Hemoglobin 28.4 27.0-33.0 - pg Mean Corpuscular HGB Conc 32.9 31.0-35.0 - g/ dl Red Cell Distribution Width 13.8 11.0-16.0 - % Platelet Count 188 160-400 - X10*3/uL Mean Platelet Volume 9.1 L 9.4-12.3 - fL NRBC Pct Auto 0.0 0.0-0.2 - /100WBC NRBC Abs Auto 0.000 0.0-0.012 - X10*3/uL L ab:Complete Blood Count Auto Diff (Order Date - 05/04/2025) (Collection Date & Time - 05/04/2025 01:52 PM) Value Reference Range White Blood Count 5.9 4.8-10.8 - X10*3/uL Red Blood Count 3.03 L 4.20-5.50 - X10*6/uL Hemoglobin 8.6 L 12.0-16.0 - g/dl Hematocrit 26.5 L 37.0-47.0 - % Mean Corpuscular Volume 87.5 80.0-98.0 - fL Mean Corpuscular Hemoglobin 28.4 27.0-33.0 - pg Mean Corpuscular HGB Conc 32.5 31.0-35.0 - g/ dl Red Cell Distribution Width 13.8 11.0-16.0 - % Platelet Count 205 160-400 - X10*3/uL Mean Platelet Volume 9.3 L 9.4-12.3 - fL Neutrophils Percent Auto 64.1 45-73 - % Imm Gran Pct Auto 0.2 0.0-0.4 - % Lymphocytes Percent Auto 24.6 20-40 - % Monocytes Percent Auto 8.5 2-11 - % Eosinophils Percent Auto 2.1 0-4 - % Basophils Percent Auto 0.5 0-2 - % NRBC Pct Auto 0.0 0.0-0.2 - /100WBC Neutrophils Absolute Auto 3.8 2.0-8.3 - x10* 3/uL Imm Gran Abs Auto 0.01 0.00-0.03 - X10*3/uL Lymphocytes Absolute Auto 1.4 1.2-4.9 - X10* 3/uL Monocytes Absolute Auto 0.5 0.1-1.2 - X10*3/ uL Eosinophils Absolute Auto 0.1 0.0-0.4 - X10* 3/uL Basophils Absolute Auto 0.0 0.0-0.2 - X10*3/ uL NRBC Abs Auto 0.000 0.0-0.012 - X10*3/uL * Examination: G eneral Examination: GENERAL APPEARANCE: w ell developed, well nourished, in no acute distress. HEAD: n ormocephalic, atraumatic. EYES: p upils equal, round, reactive to light and accommodation, sclera non-icteric. EARS: n ormal. ORAL CAVITY: m ucosa moist. THROAT: c lear. NECK/THYROID: n tessa supple, full range of motion, no cervical lymphadenopathy, no bruits. SKIN: w arm and dry, no suspicious lesions. HEART: r egular rate and rhythm, S1, S2 normal, no murmurs.? LUNGS: c lear to auscultation bilaterally. BREASTS: d one by rn obgyn. ABDOMEN: s oft, nontender, nondistended, bowel sounds present, normal, no organomegaly , no masses palpable. RECTAL EXAM: d one by rn obgyn. FEMALE GENITOURINARY: d one by rn obgyn. EXTREMITIES: n o clubbing, cyanosis, or edema. NEUROLOGIC: n onfocal, motor strength normal upper and lower extremities, sensory exam intact. Assessment: * Assessment: 1. E ssential hypertension - I10 (Primary) 2 . B ronchiectasis without complication - J47.9 3 . I tejas deficiency anemia due to chronic blood loss - D50.0? 4. H ypercholesteremia - E78.00 5 . D epression screening - Z13.31 Plan: * Treatment: 2. B ronchiectasis without complication Notes: no problems at present time, will continue to monitor 3. I tejas deficiency anemia due to chronic blood loss Notes: doing well, will cntinue to monitor 4. H ypercholesteremia Continue Atorvastatin Calcium Tablet, 40 MG, TAKE 1 TABLET BY MOUTH EVERY DAY. Notes: stable, will continue current regiment 5. D epression screening Notes: negative screen * Procedure Codes: * Follow Up: 6 Months * * Sign off status: Completed true * Provider: Edenilson Najera MD Date: 0 06/02/2025 Generated for Jhony pepe/Barrington/Bin on: 1 12/03/2024 10:33 AM EST History and Physical Notes * HPI (History of Present Illness) Category Sub-Category Detail Notes Category Not es Symptom(s) patient is a 79 yo female here for visit with review of recent labs and follow up of chronic issues. Depression Screening PHQ-9 Little inte rest or pleasure in doing things: Not at all Feeling down, depressed, or hopeless: No t at all Trouble falling or staying asleep, or sl eeping too much: Not at all Feeling tired or having little energy: N ot at all Poor appetite or overeating: Not at all Feeling bad about yourself o r that you are a failure, or have let yourself or your family down: Not at all Trouble concentrating on thi ngs, such as reading the newspaper or watching television: Not at all Moving or speaking so slowly that other people could have noticed; or the opposite, being so fidgety or restless that you have been moving around a lot more than usual: Not at all Thoughts that you would be b jonnathan off or of hurting yourself in some way: Not at all Total Score: 0 Interpretation and Intervention Depression Scree shun Findings: Negative Follow-Up for Depression: : review of PH Q-9 found negative result, no follow-up needed SDOH Questions SDOH Questions In the past year have you been worried about losing housing?: No In the past year have you or any family members you live with been unable to get any of the following when it was really needed? Check all that apply:: None Fall Risk History Have you had any falls with injury i n the past year?: No Have you had two or more falls in the year?: No Communication Needs Communication Needs Does the patient have a hearing impairment: Yes If yes, what is the hearing impairment?: Hard of hearing, Hearing Aids Does the patient have a vision impairmen t?: Yes If yes, what is the vision impairment?: Glasses Does the patient have a cognition impair ment?: No Examination Category Sub-Category Detail Notes Category Not es General Examination GENERAL APPEARANCE: well dev eloped, well nourished, in no acute distress HEAD: normocephalic, atrau matic EYES: pupils equal, round, reactive to light and accommodation, sclera non-icteric EARS: normal THROAT: clear NECK/THYROID: neck supple, full ra nge of motion, no cervical lymphadenopathy, no bruits HEART: regular rate and rhy thm, S1, S2 normal, no murmurs LUNGS: clear to auscultatio n bilaterally ABDOMEN: soft, nontender, non distended, bowel sounds present, normal, no organomegaly , no masses palpable NEUROLOGIC: nonfocal, motor stre ngth normal upper and lower extremities, sensory exam intact SKIN: warm and dry, no ariel picious lesions EXTREMITIES: no clubbing, cyanosi s, or edema BREASTS: done by rn obgyn RECTAL EXAM: done by rn obgyn FEMALE GENITOURINARY: done by rn obgyn ORAL CAVITY: mucosa moist
--- OUTSIDE RECORDS SUMMARY | 2025-08-06 02:45 | XMS_ITS ---
Author Organization William Najera MD Address [address] [place] [phone] Care Team Providers Care Airline Managerial Supervisor Name Role Phone William Najera Primary Care Provider [phone] REASON FOR VISIT HDF Immunizations Vaccine Route Administration Date Status Comme nts Influenza High Dose IM Intramuscular 08/06/2025 Administer ed Encounters Encounter Location Date Provider Diagnosis William Najera MD [address] [place] [phone] 08/06/2025 William Najera Encounter for administration of vaccine Z23 Assessments Encounter Date Diagnosis (ICD Code) Assessment Notes Treatment Notes Treatment Clinical Notes Section Notes 08/06/2025 Encounter for administration of vaccine (ICD-10 - Z23) Plan Of Treatment Next Appt Details Provider Name:William lama, 11/30/2025 08:00:00 AM, [facility], [address] [place] [address], [phone], Provider Name:William Enciso ier, 12/03/2025 10:45:00 AM, [facility], [address], [place], [phone], Provider Name:William Enciso ier, 05/27/2026 08:00:00 AM, [facility], [place], [phone], Provider Name:William Enciso ier, 06/03/2026 11:00:00 AM, [facility], [address] [place], [phone], Progress Notes * Marielle VALDIVIA LDOB:[birth year] (80 yo F)Acc No.[id number]:08/06/2025 Progress Note Patient: Micheal MERLYNMarielle VILLAGOMEZ Provider: Edenilson Najera MD :1945 A ge:79 Y S ex:Female Date:08/06/2025 Address:[address] [place] [address] [id number] Subjective: * Chief Complaints: * 1 . HDF. * Medical History: Objective: * Vitals: Assessment: * Assessment: 1. E ncounter for administration of vaccine - Z23 (Primary) Plan: * Treatment: * Immunizations: Influenza High Dose : 0.5 mL (Dose No:1) (Route: Intramuscular) given by Iesha Dill , Office Staff on Left Deltoid * Procedure Codes: 9 0662 FLU VACC PRSV FREE INC ANTIG, G0008 ADMN FLU VAC NO FEE SCHED SAME DAY * * The named appointment provid er may or may not be the originator of this progress note, and it is not deemed complete until electronically signed by the appointment provider. Sign off status: Pending * Provider: Edenilson Najera MD Date: Generated for Jhony pepe/Barrington/Imanitting on: 12/03/2024 10:33 AM EST
--- OUTSIDE RECORDS SUMMARY | 2025-08-06 05:30 | XMS_ITS ---
Author Organization William Najera MD Address [address] [place] [phone] Care Team Providers Care Advertising Agent Name Role Phone William Najera Primary Care Provider Allergies Allergen (clinical drug ingredient) Drug/Non Drug Allergy documented on EMR Reaction Allergy Type Onset Date Status Information temporarily unavailable Biaxin severe diarrhea Drug Allergy Active REASON FOR VISIT Review CT Scan Medications Medication SIG (Take, Route, Frequency, Duration) Notes Start Date End Date Status Vitamin D 50 MCG (1999 UT) 1 tablet Oral ly Once a day Active Ferrous Sulfate 325 (65 Fe) MG 1 tablet Orally twice a day Not-Taking Metoprolol Tartrate 25 MG 1 tablet with food Orally Twice a day for 30 day(s) Not-Taking Atorvastatin Calcium 40 MG TAKE 1 TABLET BY MOUTH EVERY DAY for 90 Active Probiotic Orally Active Tessalon Perles 100 MG 1 capsule as need ed Orally Three times a day for 10 days 07/29/2019 Not-Taking One Daily For Women Orally Active Propylthiouracil 50 MG 1 tablet Orally o nce a day Active Evenity 105 MG/1.17ML 2.34 mL Subcutaneous Active Omeprazole 20 MG 2 capsule 30 minutes before morning meal Orally Once a day Active Vital Signs Blood pressure systolic 148 mm Hg 08/06/20 25 Blood pressure diastolic 66 mm Hg 025 Height 66 in 08/06/2025 Weight 140 lbs 08/06/2025 BMI 22.59 kg/m2 08/06/2025 Encounters Encounter Location Date Provider Diagnosis William Najera MD [address] [place] [id number] 08/06/2025 William Najera Coronary artery arteriosclerosis I25.10 Assessments Encounter Date Diagnosis (ICD Code) Assessment Notes Treatment Notes Treatment Clinical Notes Section Notes 08/06/2025 Coronary artery arteriosclerosis (ICD-10 - I25.10) discussed findings of Ct scan with patient, has already had a stress test and echo so no need to study her cardiac ct Plan Of Treatment Treatment Notes Assessment Notes Coronary artery arteriosclerosis discuss ed findings of Ct scan with patient, has already had a stress test and echo so no need to study her cardiac ct Next Appt Details Provider Name:William lama, 11/30/2025 08:00:00 AM, [address] [place] [address], [address], [phone], Provider Name:William lama, 12/03/2025 10:45:00 AM, [address] [place] [address], [phone], Provider Name:William lama, 05/27/2026 08:00:00 AM, [address] [place] [address], [phone], Provider Name:William lama, 06/03/2026 11:00:00 AM, [address] [place] [address], [phone], Progress Notes * Marielle VALDIVIA LDOB:[birth year] (80 yo F)Acc No.[id number]:08/06/2025 Progress Notes Patient: Marielle SMITH Provider: Edenilson Najera MD :1945 A ge:79 Y S ex:Female Date:08/06/2025 Address:[address] [place] [address] [id number] Subjective: * Chief Complaints: * R eview CT Scan * HPI: S ymptom(s): patient is a 79 yo female here for review of recent CT scan. * ROS: G eneral/Constitutional: Denies C hills. D enies F atigue. D enies F ever. D enies H eadache. E NT: Denies S ore throat. R espiratory: Denies C ough. D enies S hortness of breath at rest. D enies S hortness of breath with exertion. G astrointestinal: Denies D iarrhea. D enies N ausea. * Medical History: * Surgical History: * [...] Vitals: H t: 66, Wt: 140, BMI:22.59, BP:148/66, Repeat BP:120/80, Wt-k.5. * Examination: G eneral Examination: GENERAL APPEARANCE: a lert, well hydrated, in no distress.? SKIN: g ood turgor. HEART: r egular rate and rhythm, no murmurs, rubs, gallops.? LUNGS: n o wheezes, rales, rhonchi, good air movement, clear to auscultation bilaterally. Assessment: * Assessment: 1. C oronary artery arteriosclerosis - I25.10 (Primary) Plan: * Treatment: * Procedure Codes: * * Sign off status: Completed true * Provider: Edenilson Najera MD Date: Generated for Jhony pepe/Barrington/Imanitting on: 12/03/2024 10:32 AM EST History and Physical Notes * HPI (History of Present Illness) Category Sub-Category Detail Notes Category Not es Symptom(s) patient is a 79 yo female here for review of recent CT scan Examination Category Sub-Category Detail Notes Category Not es General Examination GENERAL APPEARANCE: alert, w ell hydrated, in no distress HEART: regular rate and rhy thm, no murmurs, rubs, gallops LUNGS: no wheezes, rales, r honchi, good air movement, clear to auscultation bilaterally SKIN: good turgor
--- OUTSIDE RECORDS SUMMARY | 2025-08-25 06:45 | XMS_ITS ---
Author Organization William Najera MD Address [address] [place] [phone] Care Team Providers Care Brick Molder Hand Name Role Phone William Najera Primary Care Provider Allergies Allergen (clinical drug ingredient) Drug/Non Drug Allergy documented on EMR Reaction Allergy Type Onset Date Status Information temporarily unavailable Biaxin severe diarrhea Drug Allergy Active REASON FOR VISIT right lower shoulder pain x 12 days worsening Medications Medication SIG (Take, Route, Frequency, Duration) Notes Start Date End Date Status Ibuprofen 800 MG 1 tablet with food o r milk as needed Orally every 8 hrs for 14 days 08/25/2025 Active Cyclobenzaprine HCl 5 MG 1 tablet Orally twice a day for 10 days 08/25/2025 Active Tessalon Perles 100 MG 1 capsule as need ed Orally Three times a day for 10 days 07/29/2019 Not-Taking Ferrous Sulfate 325 (65 Fe) MG 1 tablet Orally twice a day Not-Taking Metoprolol Tartrate 25 MG 1 tablet with food Orally Twice a day for 30 day(s) Not-Taking One Daily For Women Orally Active Atorvastatin Calcium 40 MG TAKE 1 TABLET BY MOUTH EVERY DAY for 90 Active Vitamin D 50 MCG (1999) 1 tablet Oral ly Once a day Active Probiotic Orally Active Omeprazole 20 MG 2 capsule 30 minutes before morning meal Orally Once a day Active Propylthiouracil 50 MG 1 tablet Orally o nce a day Active Evenity 105 MG/1.17ML 2.34 mL Subcutaneous Active Problems Problem Type SNOMED Code ICD Code Onset Dates Problem Status W/U Status Risk Notes Problem Information temporarily unavailable Cervical disc disease (M50.90) Active confirmed Vital Signs Blood pressure systolic 158 mm Hg 08/25/20 25 Blood pressure diastolic 80 mm Hg 025 Height 66 in 08/25/2025 Weight 140 lbs 08/25/2025 BMI 22.59 kg/m2 08/25/2025 Encounters Encounter Location Date Provider Diagnosis William Najera MD [address] [place] [phone] 08/25/2025 William Najera Cervical disc disease M50.90 Assessments Encounter Date Diagnosis (ICD Code) Assessment Notes Treatment Notes Treatment Clinical Notes Section Notes 08/25/2025 Cervical disc disease (ICD-10 - M50.90) patientverbalized understanding of medication and directions for use Plan Of Treatment Medication Medication Name Sig Start Date Stop Date Notes Ibuprofen 800 MG 1 tablet with food o r milk as needed Orally every 8 hrs for 14 days 08/25/2025 Cyclobenzaprine HCl 5 MG 1 tablet Orally twice a day for 10 days 08/25/2025 Treatment Notes Assessment Notes Cervical disc disease patientverbalized understanding of medication and directions for use Next Appt Details Follow Up: 1 Week, Reason: Provider Name:William lama, 11/30/2025 08:00:00 AM, [address] [place] [address], [address], [phone], Provider Name:William lama, 12/03/2025 10:45:00 AM, [address] [place] [address], [address], [phone], Provider Name:William lama, 05/27/2026 08:00:00 AM, [address], [address], [place], [place], [phone], Provider Name:William Enciso ier, 06/03/2026 11:00:00 AM, [facility], [address], [place], [place], [phone], Progress Notes * Marielle VALDIVIA LDOB:[birth year] (80 yo F)Acc No.[id number]:08/25/2025 Progress Notes Patient: Marielle SMITH Provider: Edenilson Najera MD :1945 A ge:80 Y S ex:Female Date:08/25/2025 Address:[address] [place] [address], [id number] Subjective: * Chief Complaints: * R ight lower shoulder pain x 12 days worsening * HPI: S ymptom(s): patient is a 80 yo female here with complaint , having pain in rt shoulder blade and now has inabilty to press down with her index finger for a spray. neck is fine. has been going on 10 days. * ROS: G eneral/Constitutional: Denies C hills. [...] Vitals: H t: 66, Wt: 140, BMI:22.59, BP:158/80, Wt-k.5. * Examination: G eneral Examination: GENERAL APPEARANCE: w ell developed, well nourished. HEAD: n ormocephalic. NEUROLOGIC: n ormal dtr's in upper extremities normal strength and no tenderness to palpation of the scapula finger strength is normal. Assessment: * Assessment: 1. C ervical disc disease - M50.90 (Primary) Plan: * Treatment: * Procedure Codes: * Follow Up: 1 Week * * Sign off status: Completed true * Provider: Edenilson Najera MD Date: Generated for Jhony pepe/Barrington/Bin on: 12/03/2024 10:33 AM EST History and Physical Notes * Examination Category Sub-Category Detail Notes Category Not es General Examination GENERAL APPEARANCE: well developed , well nourished HEAD: normocephalic NEUROLOGIC: normal dtr's in uppe r extremities normal strength and no tenderness to palpation of the scapula finger strength is normal
--- OUTSIDE RECORDS SUMMARY | 2025-09-01 04:15 | XMS_ITS ---
Author Organization William Najera MD Address [address] [place] [phone] Care Team Providers Care Sealer Operator Name Role Phone William Najera Primary Care Provider [phone] Allergies Allergen (clinical drug ingredient) Drug/Non Drug Allergy documented on EMR Reaction Allergy Type Onset Date Status Information temporarily unavailable Biaxin severe diarrhea Drug Allergy Active REASON FOR VISIT 1 week f/u Medications Medication SIG (Take, Route, Frequency, Duration) Notes Start Date End Date Status Propylthiouracil 50 MG 1 tablet Orally o nce a day Active Evenity 105 MG/1.17ML 2.34 mL Subcutaneous Active Tessalon Perles 100 MG 1 capsule as need ed Orally Three times a day for 10 days 07/29/2019 Not-Taking Ferrous Sulfate 325 (65 Fe) MG 1 tablet Orally twice a day Not-Taking Metoprolol Tartrate 25 MG 1 tablet with food Orally Twice a day for 30 day(s) Not-Taking Ibuprofen 800 MG 1 tablet with food o r milk as needed Orally every 8 hrs for 14 days 08/25/2025 Active Atorvastatin Calcium 40 MG TAKE 1 TABLET BY MOUTH EVERY DAY for 90 Active Cyclobenzaprine HCl 5 MG 1 tablet Orally twice a day for 10 days 08/25/2025 Active Vitamin D 50 MCG (1999 UT) 1 tablet Oral ly Once a day Active Probiotic Orally Active Omeprazole 20 MG 2 capsule 30 minutes before morning meal Orally Once a day Active One Daily For Women Orally Active Vital Signs Blood pressure systolic 122 mm Hg 09/01/20 25 Blood pressure diastolic 80 mm Hg 025 Height 66 in 09/01/2025 Weight 143 lbs 09/01/2025 BMI 23.08 kg/m2 09/01/2025 weight is up 3 pounds since 08-25-25 Encounters Encounter Location Date Provider Diagnosis William Najera MD 10 [facility] [address] [place] [phone] 09/01/2025 William Najera Cervical disc disease M50.90 Assessments Encounter Date Diagnosis (ICD Code) Assessment Notes Treatment Notes Treatment Clinical Notes Section Notes 09/01/2025 Cervical disc disease (ICD-10 - M50.90) has improved but will observe/ has not been using the ibuprofen as she though it was a pain med. have explained that is an antiimflammatory and may make her better and try it twice a day as it caused sweilling in her feel. has some neuropathy and it it doesn't keep getting better will need an mri Plan Of Treatment Medication Medication Name Sig Start Date Stop Date Notes Ibuprofen 800 MG 1 tablet with food o r milk as needed Orally every 8 hrs for 14 days 08/25/2025 Cyclobenzaprine HCl 5 MG 1 tablet Orally twice a day for 10 days 08/25/2025 Treatment Notes Assessment Notes Cervical disc disease has improved but w ill observe/ has not been using the ibuprofen as she though it was a pain med. have explained that is an antiimflammatory and may make her better and try it twice a day as it caused sweilling in her feel. has some neuropathy and it it doesn't keep getting better will need an mri Next Appt Details Follow Up: 3 Weeks, Reason: Provider Name:William lama, 11/30/2025 08:00:00 AM, [facility], [address], [place], [phone], Provider Name:William Enciso ier, 12/03/2025 10:45:00 AM, [address] [facility], [address], [place], [phone], Provider Name:William Enciso ier, 05/27/2026 08:00:00 AM, [address] [facility], [address], [place], [phone], Provider Name:William Enciso ier, 06/03/2026 11:00:00 AM, [address] [facility], [address], [place], [phone], Progress Notes * Marielle VALDIVIA LDOB:[birth year] (80 yo F)Acc No.[id number]:09/01/2025 Progress Notes Patient: Marielle SMITH Provider: Edenilson Najera MD :1945 A ge:80 Y S ex:Female Date:09/01/2025 Address:[address] [place] [address], [id number] Subjective: * Chief Complaints: * 1 week f/u * HPI: S ymptom(s): patient is a 80 yo female here for one wek follow up visit/ is doing much better after the ibuprofen and still with some weakness in rt hand. restart ibuprofen at 2 times per day. * ROS: G eneral/Constitutional: Denies C hills. [...] TAKE 1 TABLET BY MOUTH EVERY DAY Cyclobenzaprine HCl 5 MG Tablet 1 tablet Orally twice a day Ibuprofen 800 MG Tablet 1 tablet with food or milk as needed Orally every 8 hrs Taking Evenity 105 MG/1.17ML Solution Prefilled Syringe [...] 1 TABLET BY MOUTH EVERY DAY Taking Cyclobenzaprine HCl 5 MG Tablet 1 tablet Orally twice a day Taking Ibuprofen 800 MG Tablet 1 tablet with food or milk as needed Orally every 8 hrs Not-Taking/PRNMetoprolol Tartrate 25 MG Tablet 1 tablet [...] Objective: * Vitals: H t: 66, Wt: 143, BMI:23.08, BP:122/80, Wt-k.86. weight is up 3 pounds since 08-25-25. * Examination: G eneral Examination: GENERAL APPEARANCE: a lert, well hydrated, in no distress.? SKIN: g ood turgor. MUSCULOSKELETAL: a bnormal with 30% decrease in finger to thumb. Assessment: * Assessment: 1. C ervical disc disease - M50.90 (Primary) Plan: * Treatment: * Procedure Codes: * Follow Up: 3 Weeks * * Sign off status: Completed true * Provider: Edenilson Najera MD Date: Generated for Jhony pepe/Barrington/Ramonsmitting on: 12/03/2024 10:32 AM EST History and Physical Notes * HPI (History of Present Illness) Category Sub-Category Detail Notes Category Not es Symptom(s) patient is a 80 yo female here for one wek follow up visit/ is doing much better after the ibuprofen and still with some weakness in rt hand. restart ibuprofen at 2 times per day Examination Category Sub-Category Detail Notes Category Not es General Examination GENERAL APPEARANCE: alert, w ell hydrated, in no distress SKIN: good turgor MUSCULOSKELETAL: abnormal with 30% de crease in finger to thumb
--- OUTSIDE RECORDS SUMMARY | 2025-09-04 05:29 | XMS_ITS ---
Author Organization William Najera MD Address [address] [place] [phone] Care Team Providers Care Clay Maker Name Role Phone William Najera Primary Care Provider REASON FOR VISIT REFILL CYCLOBENZAPRINE Medications Medication SIG (Take, Route, Frequency, Duration) Notes Start Date End Date Status Cyclobenzaprine HCl 5 MG 1 tablet Orally twice a day for 10 days 08/25/2025 Active Encounters Encounter Location Date Provider Diagnosis William Najera MD [address] [place] [phone] 09/04/2025 William Najera Cervical disc disease M50.90 Assessments Encounter Date Diagnosis (ICD Code) Assessment Notes Treatment Notes Treatment Clinical Notes Section Notes 09/04/2025 Cervical disc disease (ICD-10 - M50.90) Plan Of Treatment Medication Medication Name Sig Start Date Stop Date Notes Cyclobenzaprine HCl 5 MG 1 tablet Orally twice a day for 10 days 08/25/2025 Next Appt Details Provider Name:William Enciso ier, 11/30/2025 08:00:00 AM, [address] [place] [address], [facility], [place], [place], [phone], Provider Name:William Enciso ier, 12/03/2025 10:45:00 AM, [address] [place] [address], [place] [address], [place], [place], [phone], Provider Name:William Enciso ier, 05/27/2026 08:00:00 AM, [address] [place] [address], [place] [address], [place], [place], [phone], Provider Name:William Enciso ier, 06/03/2026 11:00:00 AM, [address] [place] [address], [address] [facility], [place], [place], [phone], Progress Notes * Marielle VALDIVIA LDOB:[birth year] (80 yo F)Acc No.[id number]:09/04/2025 Patient: Marielle SMITH :1945 A ge:80 Y S ex:Female Address:[address] [place] [phone] * Refills Refill Cyclobenzaprine HCl Tablet, 5 MG, Orally, 20 Tablet, 1 tablet, twice a day, 10 days * true * Date: Generated for Jhony pepe/Barrington/Ramonsmitting on: 12/03/2024 10:32 AM EST
--- OUTSIDE RECORDS SUMMARY | 2025-09-24 06:30 | XMS_ITS ---
Author Organization William Najera MD Address [address] [place] [phone] Care Team Providers Care Tipping Machine Operator Automatic Name Role Phone William Najera Primary Care Provider [phone] Allergies Allergen (clinical drug ingredient) Drug/Non Drug Allergy documented on EMR Reaction Allergy Type Onset Date Status Information temporarily unavailable Biaxin severe diarrhea Drug Allergy Active REASON FOR VISIT 3 week, [facility] Pulmon[facility] 09-20-25 given antibiotic ? name, C/o ? C diff Medications Medication SIG (Take, Route, Frequency, Duration) Notes Start Date End Date Status Tessalon Perles 100 MG 1 capsule as need ed Orally Three times a day for 10 days 07/29/2019 Not-Taking Vancomycin HCl 125 MG 1 capsule Orally 4 times a day for 10 days 09/24/2025 Active Ferrous Sulfate 325 (65 Fe) MG 1 tablet Orally twice a day Not-Taking Cyclobenzaprine HCl 5 MG 1 tablet Orally twice a day for 10 days 08/25/2025 Active Metoprolol Tartrate 25 MG 1 tablet with food Orally Twice a day for 30 day(s) Not-Taking Omeprazole 20 MG 2 capsule 30 minutes before morning meal Orally Once a day Active Atorvastatin Calcium 40 MG TAKE 1 TABLET BY MOUTH EVERY DAY for 90 Active Ibuprofen 800 MG 1 tablet with food o r milk as needed Orally every 8 hrs for 14 days 08/25/2025 Active Probiotic Orally Active Vitamin D 50 MCG (1999 UT) 1 tablet Oral ly Once a day Active One Daily For Women Orally Active Propylthiouracil 50 MG 1 tablet Orally o nce a day Active Evenity 105 MG/1.17ML 2.34 mL Subcutaneous Active Vital Signs Blood pressure systolic 138 mm Hg 09/24/20 25 Blood pressure diastolic 60 mm Hg 025 Height 66 in 09/24/2025 Weight 139 lbs 09/24/2025 BMI 22.43 kg/m2 09/24/2025 weight is down 4 pounds [facility] 09[facility] Encounters Encounter Location Date Provider Diagnosis William Najera MD [address] [place] [address] [place] [phone] 09/24/2025 William Najera C. difficile diarrhea A04.72 Assessments Encounter Date Diagnosis (ICD Code) Assessment Notes Treatment Notes Treatment Clinical Notes Section Notes 09/24/2025 C. difficile diarrhea (ICD-10 - A04.72) even if culture came back negative will need to go on the antibiotic Plan Of Treatment Medication Medication Name Sig Start Date Stop Date Notes Vancomycin HCl 125 MG 1 capsule Orally 4 times a day for 10 days 09/24/2025 Treatment Notes Assessment Notes C. difficile diarrhea even if culture ca me back negative will need to go on the antibiotic Next Appt Details Provider Name:William lama, 11/30/2025 08:00:00 AM, [address] [place] [address], [place] [address], [place], [place], [phone], Provider Name:William lama, 12/03/2025 10:45:00 AM, [address] [place] [address], [address], [phone], Provider Name:William lama, 05/27/2026 08:00:00 AM, [address], [address], [place], [phone], Provider Name:William Enciso ier, 06/03/2026 11:00:00 AM, [address], [address], [place], [phone], Progress Notes * Marielle VALDIVIA LDOB:[birth year] (80 yo F)Acc No.[id number]:09/24/2025 Patient: Marielle SMITH Provider: Edenilson Najera MD :1945 A ge:80 Y S ex:Female Date:09/24/2025 Address:[address] [place] [address], [id number] Subjective: * Chief Complaints: * 1 [address] [facility] 09-20-25 given antibiotic ? name. 3. C/o ? C diff. * HPI: S ymptom(s): patient is a 80 yo female here for 3 week follow up visit, strength in hand is finally better. last week started coughing again. and went on antibiotics. and now feels that the cdif is back. had c dif aug 2023. * ROS: G eneral/Constitutional: Denies C hills. D enies F atigue. D enies F ever. D enies H eadache. E NT: Denies S ore throat. R espiratory: Denies C ough. D enies S hortness of breath at rest. D enies S hortness of breath with exertion. G astrointestinal: Admits D iarrhea, f rom antibiotics. D enies N ausea. 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 Santiago,10/17, Mammo,2 medical,01/16, Hx of Lymphocytosis. * Medications: T aking Evenity 105 MG/1.17ML Solution Prefilled Syringe 2.34 mL Subcutaneous , Taking Propylthiouracil 50 MG Tablet 1 tablet Orally once a day , Taking One Daily For Women Tablet Orally , Taking Omeprazole 20 MG Capsule Delayed Release 2 capsule 30 minutes before morning meal Orally Once a day , Taking Probiotic Capsule Orally , Taking Vitamin D 50 MCG (2000 UT) Tablet 1 tablet Orally Once a day , Taking Atorvastatin Calcium 40 MG Tablet TAKE 1 TABLET BY MOUTH EVERY DAY , Taking Ibuprofen 800 MG Tablet 1 tablet with food or milk as needed Orally every 8 hrs , Taking Cyclobenzaprine HCl 5 MG Tablet 1 tablet Orally twice a day , Not-Taking/PRN Metoprolol Tartrate 25 MG Tablet 1 tablet with food Orally Twice a day , Not-Taking/PRN Ferrous Sulfate 325 (65 Fe) MG Tablet 1 tablet Orally twice a day , Not-Taking/PRN Tessalon Perles 100 MG Capsule 1 capsule as needed Orally Three times a day , Medication List reviewed and reconciled with the patient * Allergies: B iaxin: severe diarrhea. Objective: * Vitals: H t: 66, Wt: 139, BMI:22.43, BP:138/60, Wt-k.05. weight is down 4 pounds since 09-01-25. * Examination: G eneral Examination: GENERAL APPEARANCE: a lert, well hydrated, in no distress.? HEAD: n ormocephalic. SKIN: g ood turgor. HEART: r egular rate and rhythm, no murmurs, rubs, gallops.? LUNGS: n o wheezes, rales, rhonchi, good air movement, clear to auscultation bilaterally. Assessment: * Assessment: 1. C . difficile diarrhea - A04.72 (Primary) Plan: * Treatment: * * The named appointment provid er may or may not be the originator of this progress note, and it is not deemed complete until electronically signed by the appointment provider. Sign off status: Pending * Provider: Edenilson Najera MD Date: 11/24/2024 Generated for Jhony pepe/Barrington/Imanitting on: 12/03/2024 10:32 AM EST History and Physical Notes * Examination Category Sub-Category Detail Notes Category Not es General Examination GENERAL APPEARANCE: alert, w ell hydrated, in no distress HEAD: normocephalic HEART: regular rate and rhy thm, no murmurs, rubs, gallops LUNGS: no wheezes, rales, r honchi, good air movement, clear to auscultation bilaterally SKIN: good turgor
--- OUTSIDE RECORDS SUMMARY | 2025-09-25 03:38 | XMS_ITS ---
Author Organization William Najera MD Address [address] [place] [phone] Care Team Providers Care Density Control Puncher Name Role Phone William Najera Primary Care Provider REASON FOR VISIT blood stool Encounters Encounter Location Date Provider Diagnosis William Najera MD 10 [facility] [address] [place] [phone] 09/25/2025 William Najera Plan Of Treatment Next Appt Details Provider Name:William lama, 11/30/2025 08:00:00 AM, [address] [place] [address], [address] [place] [address], [phone], Provider Name:William lama, 12/03/2025 10:45:00 AM, [address] [place] [address], [address], [phone], Provider Name:William Enciso ier, 05/27/2026 08:00:00 AM, [address], [address], [place], [place], [phone], Provider Name:William Enciso ier, 06/03/2026 11:00:00 AM, [address], [address], [place], [place], [phone], Progress Notes * Marielle VALDIVIA LDOB:[birth year] (80 yo F)Acc No.[id number]:09/25/2025 Patient: Micheal VILLEGAS Marielle L :1945 A ge:80 Y S ex:Female Address:[address] [place] [phone] * true * Date: Generated for Jhony pepe/Barrington/Imanitting on: 12/03/2024 10:32 AM EST
--- OUTSIDE RECORDS SUMMARY | 2025-10-03 10:32 | XMS_ITS | Clinical Summary ---
Author Organization [facility] Address [address] [facility] [address] [place] [address] Phone Care Team Providers Care Cold Roller Name Role Phone William Najera MD Primary [...] on patient's age to complete this topic IPV VACCINES Aged Out No longer eligi ble based on patient's age to complete this topic MENINGOCOCCAL VACCINES (ACWY) Aged Out No longer eligible based on patient's age to complete this topic MENINGOCOCCAL VACCINES (B) Aged Out N o longer eligible based on patient's age to complete this topic Medical Devices Not on file Insurance MEDICARE PART A & B [facility] MEDICARE SUPPLEMENT MEDICARE PART A & B [facility] MEDICARE SUPPLEMENT MEDICARE PART A & B Member Subscriber Plan / Payer (Ef fective 2011-Present) Name:Marielle Valdivia Member ID:[id number] Relation to Subscriber:Self Name:Marielle Valdivia Subscriber ID:[id number] Payer ID:[id number] Group ID:Not on file Type:Medicare Address: [employer] [address] [place] [id number] [place] [address] [place] [facility] [place] [address] MEDICARE PART A & B [facility] MEDICARE SUPPLEMENT MEDICARE PART A & B [employer] [facility] MEDICARE [place]PP[place] [facility] [place] [id number] [place] [address] MEDICARE PART A & B [employer] [facility] [place]ICARE [place] [facility] [place] [address] MEDICARE PART A & B [facility] MEDICARE SUPP[place]MENT [facility] [place] [facility] [place] [address] MEDICARE PART A & B [facility] MEDICARE SUPPLEMENT MEDICARE PART A & B [facility] MEDICARE SUPPLEMENT Care Teams Cold Roller Relationship Specialty Start Date End Date William Najera MD [address] [place] [phone] PCP - General Internal Medicine 10/14/14 Additional Source Comments The information contained in this document represents components of the legal health record. It is not the complete legal health record.[facility]
--- OUTSIDE RECORDS SUMMARY | 2025-10-03 10:33 | XMS_ITS | Patient Health Record ---
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 Name Role Phone William Najera MD Primary Care Provider Byron Mena Unavailable [phone] Allergies Allergen (clinical drug ingredient) Drug/Non Drug Allergy documented on EMR Reaction Allergy Type Onset Date Status Information temporarily unavailable Biaxin stomach pain and diarrhea Drug Allergy Active Results Component Value Reference Range Flag Notes Complete Blood Count Auto Di ff Reviewed date:05/23/2025 11:20:40 PM Interpretation: Performing Lab:[facility], [address] [place] [phone] Notes/Report: White Blood Count 4.7 4.8-10.8 X10*3/uL L Red Blood Count 3.31 4.20-5.50 X10*6/uL L Hemoglobin 9.5 12.0-16.0 g/dl L Hematocrit 30.5 37.0-47.0 % L Mean Corpuscular Volume 92.1 80.0-98.0 fL N Mean Corpuscular Hemoglobin 28.7 27.0-33.0 pg N Mean Corpuscular HGB Conc 31.1 31.0-35.0 g/dl N Red Cell Distribution Width 16.0 11.0-16.0 % N Platelet Count 236 160-400 X10*3/uL N Mean Platelet Volume 9.9 9.4-12.3 fL N Neutrophils Percent Auto 63.7 45-73 % N Imm Gran Pct Auto 0.4 0.0-0.4 % N Lymphocytes Percent Auto 23.4 20-40 % N Monocytes Percent Auto 8.3 2-11 % N Eosinophils Percent Auto 3.6 0-4 % N Basophils Percent Auto 0.6 0-2 % N NRBC Pct Auto 0.0 0.0-0.2 /100WBC N Neutrophils Absolute Auto 3.0 2.0-8.3 x10*3/uL N Imm Gran Abs Auto 0.02 0.00-0.03 X10*3/uL N Lymphocytes Absolute Auto 1.1 1.2-4.9 X10*3/uL L Monocytes Absolute Auto 0.4 0.1-1.2 X10*3/uL N Eosinophils Absolute Auto 0.2 0.0-0.4 X10*3/uL N Basophils Absolute Auto 0.0 0.0-0.2 X10*3/uL N NRBC Abs Auto 0.000 0.0-0.012 X10*3/uL N Complete Blood Count Auto Di ff Reviewed date:09/27/2025 12:59:26 AM Interpretation: Performing Lab:[facility], [address] [place] [phone] Notes/Report: White Blood Count 4.7 4.8-10.8 X10*3/uL L Red Blood Count 3.72 4.20-5.50 X10*6/uL L Hemoglobin 10.8 12.0-16.0 g/dl L Hematocrit 34.3 37.0-47.0 % L Mean Corpuscular Volume 92.2 80.0-98.0 fL N Mean Corpuscular Hemoglobin 29.0 27.0-33.0 pg N Mean Corpuscular HGB Conc 31.5 31.0-35.0 g/dl N Red Cell Distribution Width 14.2 11.0-16.0 % N Platelet Count 235 160-400 X10*3/uL N Mean Platelet Volume 9.7 9.4-12.3 fL N Neutrophils Percent Auto 55.3 45-73 % N Imm Gran Pct Auto 0.2 0.0-0.4 % N Lymphocytes Percent Auto 27.5 20-40 % N Monocytes Percent Auto 11.2 2-11 % H Eosinophils Percent Auto 5.2 0-4 % H Basophils Percent Auto 0.6 0-2 % N NRBC Pct Auto 0.0 0.0-0.2 /100WBC N Neutrophils Absolute Auto 2.6 2.0-8.3 x10*3/uL N Imm Gran Abs Auto 0.01 0.00-0.03 X10*3/uL N Lymphocytes Absolute Auto 1.3 1.2-4.9 X10*3/uL N Monocytes Absolute Auto 0.5 0.1-1.2 X10*3/uL N Eosinophils Absolute Auto 0.2 0.0-0.4 X10*3/uL N Basophils Absolute Auto 0.0 0.0-0.2 X10*3/uL N NRBC Abs Auto 0.000 0.0-0.012 X10*3/uL N IRON PROFILE Reviewed date:09/27/2025 12:59:26 AM Interpretation: Performing Lab:[facility], [address] [place] [phone] Notes/Report: Iron 32 30-160 mcg/dL N Total Iron Binding Capacity 267 228-428 mcg/dL N Percent Iron Saturation 12 15-50 % L Unsaturated Iron Binding 235 Ferritin Reviewed date:09/27/2025 12:59:26 AM Interpretation: Performing Lab:[facility], [address] [place] [phone] Notes/Report: Ferritin 26 10-250 ng/mL N Complete Blood Count Auto Di ff Reviewed date:05/06/2025 08:47:44 AM Interpretation: Performing Lab:[facility], [address] [place] [phone] Notes/Report: White Blood Count 5.2 4.8-10.8 X10*3/uL N Red Blood Count 3.03 4.20-5.50 X10*6/uL L Hemoglobin 8.6 12.0-16.0 g/dl L Hematocrit 26.9 37.0-47.0 % L Mean Corpuscular Volume 88.8 80.0-98.0 fL N Mean Corpuscular Hemoglobin 28.4 27.0-33.0 pg N Mean Corpuscular HGB Conc 32.0 31.0-35.0 g/dl N Red Cell Distribution Width 14.0 11.0-16.0 % N Platelet Count 245 160-400 X10*3/uL Mean Platelet Volume 9.8 9.4-12.3 fL N Neutrophils Percent Auto 58.5 45-73 % N Imm Gran Pct Auto 0.2 0.0-0.4 % N Lymphocytes Percent Auto 24.8 20-40 % N Monocytes Percent Auto 10.3 2-11 % N Eosinophils Percent Auto 5.2 0-4 % H Basophils Percent Auto 1.0 0-2 % N NRBC Pct Auto 0.0 0.0-0.2 /100WBC N Neutrophils Absolute Auto 3.0 2.0-8.3 x10*3/uL N Imm Gran Abs Auto 0.01 0.00-0.03 X10*3/uL N Lymphocytes Absolute Auto 1.3 1.2-4.9 X10*3/uL N Monocytes Absolute Auto 0.5 0.1-1.2 X10*3/uL N Eosinophils Absolute Auto 0.3 0.0-0.4 X10*3/uL N Basophils Absolute Auto 0.1 0.0-0.2 X10*3/uL N NRBC Abs Auto 0.000 0.0-0.012 X10*3/uL N Complete Blood Count Auto Di ff Reviewed date:09/27/2025 12:59:25 AM Interpretation: Performing Lab:[facility], [address] [place] [phone] Notes/Report: White Blood Count 4.9 4.8-10.8 X10*3/uL N Red Blood Count 3.47 4.20-5.50 X10*6/uL L Hemoglobin 9.7 12.0-16.0 g/dl L Hematocrit 30.8 37.0-47.0 % L Mean Corpuscular Volume 88.8 80.0-98.0 fL N Mean Corpuscular Hemoglobin 28.0 27.0-33.0 pg N Mean Corpuscular HGB Conc 31.5 31.0-35.0 g/dl N Red Cell Distribution Width 13.3 11.0-16.0 % N Platelet Count 260 160-400 X10*3/uL N Mean Platelet Volume 8.8 9.4-12.3 fL L Neutrophils Percent Auto 61.6 45-73 % N Imm Gran Pct Auto 0.2 0.0-0.4 % N Lymphocytes Percent Auto 25.3 20-40 % N Monocytes Percent Auto 8.5 2-11 % N Eosinophils Percent Auto 3.8 0-4 % N Basophils Percent Auto 0.6 0-2 % N NRBC Pct Auto 0.0 0.0-0.2 /100WBC N Neutrophils Absolute Auto 3.0 2.0-8.3 x10*3/uL N Imm Gran Abs Auto 0.01 0.00-0.03 X10*3/uL N Lymphocytes Absolute Auto 1.3 1.2-4.9 X10*3/uL N Monocytes Absolute Auto 0.4 0.1-1.2 X10*3/uL N Eosinophils Absolute Auto 0.2 0.0-0.4 X10*3/uL N Basophils Absolute Auto 0.0 0.0-0.2 X10*3/uL N NRBC Abs Auto 0.000 0.0-0.012 X10*3/uL N IRON PROFILE Reviewed date:09/27/2025 12:59:25 AM Interpretation: Performing Lab:[address] [phone] Notes/Report: Iron 44 30-160 mcg/dL N Total Iron Binding Capacity 237 228-428 mcg/dL N Percent Iron Saturation 19 15-50 % N Unsaturated Iron Binding 193 Ferritin Reviewed date:09/27/2025 12:59:26 AM Interpretation: Performing Lab:[address] [phone] Notes/Report: Ferritin 45 10-250 ng/mL N Reason For Referral No Information Medications Medication SIG (Take, Route, Frequency, Duration) Notes Start Date End Date Status Zinc Picolinate - Powder as directed Active Flonase Allergy Relief 50 MCG/ACT Suspension 1 spray in each nostril Nasally Once a day; Duration: 30 day(s) Active Iron 325 (65 Fe) MG Tablet 1 tablet Orally twice a day 09/08/2025 Active Atorvastatin Calcium 40 MG Tablet 1 tablet Orally Once a day; Duration: 30 day(s) Active Propylthiouracil 50 MG Tablet 1 tablet Orally ONCE a day Active Vitamin D-3 25 MCG (1000 UT) Capsule 1 capsule Orally Once a day; Duration: 30 day(s) Active Ibuprofen 800 MG Tablet 1 tablet with fo od or milk as needed Orally every 8 hrs Active Evenity 105 MG/1.17ML Solution Prefilled Syringe 2.34 mL Subcutaneous Osteoporosis Active Probiotic Active Omeprazole 20 MG Capsule Delayed Release 2 QD Orally Once a day Active Immunizations Vaccine Route Administration Date Status Comme nts Influenza Unknown 08/05/2022 Administered Influenza Unknown 10/05/2023 Administered Influenza Unknown 09/08/2024 Administered Social History Tobacco Use: Social History Observation Description Date Details (start date - stop date) Former Smoker NA - NA Social History Drug/Alcohol: Social Info Question Answer Notes AUDIT-C (Standard) Did you have a drink containing alcohol in the past year? Yes How often did you have a drink containing alcohol in the past year? Monthly or less (1 point) How many drinks did you have on a typical day when you were drinking in the past year? 1 or 2 drinks (0 point) How often did you have six or more drinks on one occasion in the past year? Never (0 point) Points 1 Interpretation Negative Tobacco Use: Social Info Question Answer Notes Tobacco Use/Smoking Patient is a former smoker How long has it been since you last smoked? > 10 years Additional Details Category Social Info Options Details Miscellaneous: Marital status: Lives with significant other Occupation: retired Section Notes: Quit smoking over 40 years [...] Status Risk Notes Problem Information temporarily unavailable Diarrhea (R19.7) Active confirmed Problem Information temporarily unavailable 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 Problem Information temporarily unavailable Diverticulosis of large intestine without perforation or abscess without bleeding (K57.30) Active confirmed Problem Information temporarily unavailable Iron deficiency anemia (D50.9) Active confirmed Problem Information temporarily unavailable Heme + stool (R19.5) Active confirmed Problem Information temporarily unavailable Anemia (D64.9) Active confirmed Problem Information temporarily unavailable Iron deficiency anemia due to chronic blood loss (D50.0) Active confirmed Problem Information temporarily unavailable Diverticulosis of colon with hemorrhage (K57.31) Active confirmed Problem Information temporarily unavailable Anemia due to blood loss (D50.0) Active confirmed Problem Information temporarily unavailable Gastroesophageal reflux disease, unspecified whether esophagitis present (K21.9) Active confirmed Problem Information temporarily unavailable C. difficile diarrhea (A04.72) Active confirmed Vital Signs Temperature 97 degrees Fahrenheit 09/08/2025 Blood pressure diastolic 01 mm Hg 09/08/2025 Height 64 in 09/08/2025 Blood pressure systolic 001 mm Hg 09/08/2025 Weight 143 lbs 09/08/2025 BMI 24.54 kg/m2 09/08/2025 Encounters Encounter Location Date Provider Diagnosis [facility] [address] [place] [phone] 05/05/2025 Byron Nielsen Diverticulosis of [place] with hemorrhage K57.31 and Anemia due to blood loss D50.0 [facility] [address] [place] [phone] 09/08/2025 Byron Nielsen Iron deficiency anem ia secondary to blood loss (chronic) D50.0 and Diverticulosis of large intestine without perforation or abscess without bleeding K57.30 [facility] [address] [place] [phone] 05/01/2025 Byron Nielsen [facility] [address] [place] [phone] 05/23/2025 Byron Nielsen Anemia D64.9 [facility] [address] [place] [phone] 09/08/2025 Byron Nielsen [facility] [address] [place] [phone] 09/25/2025 Byron Nielsen [facility] [address] [place] [phone] 09/26/2025 Byron Nielsen Anemia D64.9 and Diarrhea R19.7 Assessments Encounter Date Diagnosis (ICD Code) Assessment [...] to keep you advised of her progress. 09/08/2025 Iron deficiency anemia secondary to blood loss (chronic) (ICD-10 - D50.0) Continue Iron and follow up blood counts with Dr. Najera Overall, Marielle appears quite well. We did review her previous history from earlier in the year with her GI bleeding and at this point things seem to have completely resolved in that regard. Her hemoglobin has also improved on the iron replacement as of June. I did advise her that I would like to obtain some follow-up labs including a blood count and iron profile to see where things are at and make sure things are stable. If things have normalized she may be able to eventually stop the iron replacement.. I did advise her to continue her iron in the meantime and have that adjusted by you as needed. We reviewed that I do not think she would need any further screening colonoscopies in the future given her age and the negative exam in 2022. As long as things are well she will see me on an as needed basis. Marielle was very comfortable with this plan. Thank you again for allowing me to have participated in Marielle's care. Please do not hesitate to contact me if I can be of any further assistance in the future. 05/23/2025 Anemia (ICD-10 - D64.9) 09/26/2025 Diarrhea (ICD-10 - R19.7) 09/26/2025 Anemia (ICD-10 - D64.9) 09/08/2025 Diverticulosis of large intestine without perforation or abscess without bleeding (ICD-10 - K57.30) Overall, Marielle appears quite well. We did review her previous history from earlier in the year with her GI bleeding and at this point things seem to have completely resolved in that regard. Her hemoglobin has also improved on the iron replacement as of June. I did advise her that I would like to obtain some follow-up labs including a blood count and iron profile to see where things are at and make sure things are stable. If things have normalized she may be able to eventually stop the iron replacement.. I did advise her to continue her iron in the meantime and have that adjusted by you as needed. We reviewed that I do not think she would need any further screening colonoscopies in the future given her age and the negative exam in 2022. As long as things are well she will see me on an as needed basis. Marielle was very comfortable with this plan. Thank you again for allowing me to have participated in Marielle's care. Please do not hesitate to contact me if I can be of any further assistance in the future. Plan Of Treatment Pending Test Test Name Order Date IRON + IBC (FE) 04/24/2023 IRON + IBC (FE) 09/08/2025 IRON + IBC (FE) 05/23/2025 IRON + IBC (FE) 09/26/2025 CBC w DIFF 09/26/2025 CBC w DIFF 05/23/2025 CBC w DIFF 05/05/2025 CBC w DIFF 01/28/2023 CBC w DIFF 09/08/2025 CBC w DIFF 04/24/2023 C DIFFICILE RFLX PCR 09/26/2025 Ferritin 09/26/2025 Ferritin 04/24/2023 Ferritin 09/08/2025 Ferritin 05/23/2025 Vitamin B12 and Folate 09/26/2025 Future Test Test Name Order Date UPPER GI ENDOSCOPY 01/18/2023 COLONOSCOPY 01/18/2023 Insurance Providers Payer Name Payer Address Payer Phone Subscriber Number Group Number Insured Name Patient Relationship to Insured Coverage Start Date Coverage End Date MEDICARE OF [place] [address] [place] [id number] MARIELLE FAYE Self - patient is the insured [facility] [address] [address] [place] [address] [phone] [id number] MARIELLE FAYE Self - patient is the insured Medical (General) History Medical History History ICD Code Bronchiectasis-followed by [facility] Pul onolgy Kidney stones Grave's disease Denies PA,DM,CVA,renal disease Reported negative colonoscop y in [address] Andino in [place], and also approx. 10 years before that as well with Dr. Andino GERD- Reported negtaive EGD [place] [address] Andino except for a hiatal hernia Asymptomatic gallstones seen on 01/2023 CT scan-D/W patient at the 01/18/2023 OV Hyperlipidemia Iron deficiency anemia in [facility] of 2022- upper endoscopy revealed only a small hiatal hernia and duodenal biopsies negative for celiac disease; a colonoscopy revealed only small tubular adenomas C.diff 09/2023 from antibiot ics for a pulmonary infection- relapsed after 1st round of Vanco and on a tapering regimen of Vanco as of the 10/2023 OV Lower GI bleed 04/2025-presumed diverticu lar Surgical History Surgery Date(Month/Year) Hip replacements left and right 3 Partial hysterectomy
--- OUTSIDE RECORDS SUMMARY | 2025-10-03 10:33 | XMS_ITS | Patient Health Record ---
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 Role Phone William Najera Primary Care Provider Allergies Allergen (clinical drug ingredient) Drug/Non Drug Allergy documented on EMR Reaction Allergy Type Onset Date Status Information temporarily unavailable Biaxin severe diarrhea Drug Allergy Active Results Component Value Reference Range Notes Complete Blood Count Auto Di ff Reviewed date:11/14/2024 05:09:29 PM Interpretation: Performing Lab:[facility], [address] [place] [phone] Notes/Report: White Blood Count 4.7 4.8-10.8 X10*3/uL [...] Panel Reviewed date:11/14/2024 01:25:15 PM Interpretation: Performing Lab:[address] [phone] Notes/Report: Bilirubin Total 0.7 0.0-1.0 mg/dL Bilirubin Direct 0.3 0.0-0.5 mg/dL Aspartate Amino Transferase 30 5-31 U/L Alanine Aminotransferase 27 0-31 U/L Total Protein 7.5 6.5-8.0 g/dL Albumin Level 4.1 3.5-5.0 g/dL Alkaline Phosphatase 112 39-117 U/L Lipid Panel with Reflex Reviewed date:11/14/2024 05:09:12 PM Interpretation: Performing Lab:[address] [address] Notes/Report: Triglycerides 58 <150 mg/dL Desirable Triglyceride: [...] Panel Reviewed date:05/26/2025 12:29:43 PM Interpretation: Performing Lab:[facility], [address] [place] [phone] Notes/Report: Bilirubin Total 0.6 0.0-1.0 mg/dL Bilirubin Direct 0.3 0.0-0.5 mg/dL Aspartate Amino Transferase 32 5-31 U/L Alanine Aminotransferase 27 0-31 U/L Total Protein 7.0 6.5-8.0 g/dL Albumin Level 4.2 3.5-5.0 g/dL Alkaline Phosphatase 120 39-117 U/L Lipid Panel with Reflex Reviewed date:05/26/2025 12:31:57 PM Interpretation: Performing Lab:[facility], [address] [place] [phone] Notes/Report: Triglycerides 69 <150 mg/dL Desirable Triglyceride: [...] ff Reviewed date:05/01/2025 03:54:44 PM Interpretation: Performing Lab:[facility], [address] [place] [phone] Notes/Report: White Blood Count 5.1 4.8-10.8 X10*3/uL [...] Emerson Reviewed date:11/14/2024 01:25:22 PM Interpretation: Performing Lab:[facility], [address] [place] [phone] Notes/Report: Hold Gold See Note Specimen held untested for 24 hours; Call to request Chemistry testing. Complete Blood Count no Diff Reviewed date:05/05/2025 08:44:21 AM Interpretation: Performing Lab:[facility], [address] [place] [phone] Notes/Report: White Blood Count 5.3 4.8-10.8 X10*3/uL [...] ff Reviewed date:05/05/2025 10:26:04 AM Interpretation: Performing Lab:[facility], [address] [place] [phone] Notes/Report: White Blood Count 5.9 4.8-10.8 X10*3/uL [...] INR Reviewed date:05/05/2025 10:25:36 AM Interpretation: Performing Lab:[address] [address] Notes/Report: Prothrombin Time 11.9 10.9-12.4 [employer] [...] OBSX1 Reviewed date:05/05/2025 08:44:28 AM Interpretation: Performing Lab:[address] [address] Notes/Report: OBS1 POSITIVE NEGATIVE Comprehensive Met. Panel Reviewed date:05/05/2025 10:26:23 AM Interpretation: Performing Lab:[address] [address] Notes/Report: Sodium 145 135-145 mmol/L Potassium 3.6 [...] Magnesium Reviewed date:05/05/2025 08:44:43 AM Interpretation: Performing Lab:[address] [address] Notes/Report: Magnesium 1.9 1.6-2.6 mg/dL Hold Ki Reviewed date:05/26/2025 12:30:32 PM Interpretation: Performing Lab:[address] [address] Notes/Report: Alan Emerson See Note Specimen held untested for 24 hours; Call to request Chemistry testing. Complete Blood Count Auto Di ff Reviewed date:06/28/2025 03:20:20 PM Interpretation: Performing Lab:[address] [address] Notes/Report: White Blood Count 4.7 4.8-10.8 X10*3/uL [...] PROFILE Reviewed date:06/28/2025 03:06:49 PM Interpretation: Performing Lab:[facility], [address] [place] [phone] Notes/Report: Iron 32 30-160 mcg/dL Total Iron Binding Capacity 267 228-428 mcg/dL Percent Iron Saturation 12 15-50 % Unsaturated Iron Binding 235 Ferritin Reviewed date:06/28/2025 03:06:57 PM Interpretation: Performing Lab:[facility], [address] [place] [phone] Notes/Report: Ferritin 26 10-250 ng/mL CT chest wo con Reviewed date:07/31/2025 02:20:16 PM Interpretation: Performing Lab: Notes/Report: [address] [address] [address] Scan Report Signed Patient: Marielle Valdivia MR#: [id number] [birth year] : 1945 Acct:[id number] Age/Sex: 79 / F ADM Date: 07/30/25 Loc: HO.CT Attending Dr: William Najera MD Ordering Physician: William Najera MD Date of Service: 07/30/25 Procedure(s): CT chest wo IV con Accession Number(s): [id number] cc: William Najera MD Report Number: [id number]: Total DLP = 107.00 mGy-cm Reason for [...] 07/30/25 1723 DD/ 1636 TD/TT: 07/30/25 1642 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: [place] [address] CT Scan Report Signed Patient: Shanika Valdivia MR#: [id number] [birth year] : 1945 Acct:[id number] Age/Sex: 79 / F ADM Date: 07/30/25 Loc: .CT Attending Dr: William Najera MD Ordering Physician: William Najera MD Date of Service: 07/30/25 Procedure(s): CT marybeth st wo IV con Accession Number(s): [id number] cc: William Najera MD Report Number: [id number]: Total DLP = 107.00 mGy-cm Reason for [...] 07/30/25 1723 DD/ 1636 TD/TT: 07/30/25 1642 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: MM tomosynthesis screening B I Reviewed date:08/07/2025 03:50:58 PM Interpretation: Performing Lab: Notes/Report: [address] [place] [address] Mammography Report Signed Patient: Marielle Valdivia MR#: [id number] 8 : 1945 Acct:[id number] Age/Sex: 79 / F ADM Date: 08/04/25 Loc: HO.MAMMO Attending Dr: William Najera MD Ordering Physician: William Najera MD Results: 1Ne gative Date of Service: 08/04/25 Follow Up: 1 Year From Orig ina Mammogram Procedure(s): MM tomosynthesis screening BI Accession Number(s): [id number] cc: William Najera MD Reason For Exam: SCREENING EXAMINATION: MM SCREENING DIGITAL BREAST TOMOSYNTHESIS, BILATERAL CLINICAL INFORMATION: Screening. Asymptomatic. COMPARISON: Mammography: Comparison is made with available priors TECHNIQUE: Digital breast mammography with tomosynthesis is performed in both the craniocaudal and mediolateral oblique views along with computer-aided detection (CAD). FINDINGS: The breasts are heterogeneously dense, which may obscure small masses. There are no significant masses, abnormal calcifications, or other abnormalities. MM/MM tomosynthesis screening BI IMPRESSION: No mammographic evidence of malignancy. ASSESSMENT: BI-RADS Category 1: Negative RECOMMENDATION: Routine annual mammography screening. 1 year F/U This examination should not preclude the clinical evaluation of a suspicious palpable abnormality. This patient's information was entered into a reminder system with a target due date for their next mammogram. 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 [address] Mammography Report Signed Patient: Shanika Valdivia MR#: [id number] 8 : 1945 Acct:[id number] Age/Sex: 79 / F ADM Date: 08/04/25 Loc: HO.MAMMO Attending Dr: William Najera MD Ordering Physician: William Najera MD Results: 1Ne gative Date of Service: 08/04/25 Follow Up: 1 Year From Orig inal Mammogram Procedure(s): MM tomosynthesis screening BI Accession Number(s): [id number] cc: William Najera MD Reason For Exam: SCREENING EXAMINATION: MM SCREENING DIGITAL BREAST TOMOSYNTHESIS, BILATERAL CLINICAL INFORMATION: Screening. Asymptomatic. COMPARISON: Mammography: Compari son is made with available priors TECHNIQUE: Digital breast mammography with tomosynthesis is performed in both the craniocaudal and mediolateral oblique views along with computer-aided detection (CAD). FINDINGS: The breasts are heterogeneously dense, which may obscure small masses. There are no significant masses, abnormal calcifications, or other abnormalities. MM/MM tomosynthesis screening BI IMPRESSION: No mammographic evidence of malignancy. ASSESSMENT: BI-RADS Category 1: Negative RECOMMENDATION: Routine annual mammography screening. 1 year F/U This examination jae uld not preclude the clinical evaluation of a suspicious palpable abnormality. This patient's information was entered into a reminder system with a target due date for their next mammogram. Electronically brian d by: Ronit Glover DO 08/07/2025 01:54 PM EDT RP Dictated By: Ronit Glover DO Signed By: <Electronically signed by Ronit Glover DO in OV> 08/07/25 1354 DD/ TD/TT: 08/04/25 0935 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: Reason For Referral Reason Rectal bleeding ne [...] 0 05/01/2025 12:00:33 PM >referral info faxed, Leia Hillette 05/04/2025 10:01:37 AM > spoke with office, they spoke with patient and told her if she was still bleeding that she needed to go to the [facility] ER today. Dr. Gant would follow up with her after that. Spoke with patient she is aware of this. Referral Priority Routine Referral Appointment Date 05/05/2025 Medications Medication SIG (Take, Route, Frequency, Duration) Notes Start Date End Date Status Ferrous Sulfate 325 (65 Fe) MG 1 tablet Orally twice a day Not-Taking Evenity 105 MG/1.17ML 2.34 mL Subcutaneous Active Cyclobenzaprine HCl 5 MG 1 tablet Orally twice a day for 10 days 08/25/2025 Active Metoprolol Tartrate 25 MG 1 tablet with food Orally Twice a day for 30 day(s) Not-Taking One Daily For Women Orally Active Omeprazole 20 MG 2 capsule 30 minutes before morning meal Orally Once a day Active Tessalon Perles 100 MG 1 capsule as need ed Orally Three times a day for 10 days 07/29/2019 Not-Taking Vancomycin HCl 125 MG 1 capsule Orally 4 times a day for 10 days 09/24/2025 Active Propylthiouracil 50 MG 1 tablet Orally o nce a day Active Atorvastatin Calcium 40 MG [...] 07/18/2024 Administer ed RSV Unknown 09/06/2024 [address]ered [facility] Influenza High Dose IM Intramuscular 08/06/2025 Administer ed Social History Tobacco Use: Social History Observation [...] Problem Status W/U Status Risk Notes Problem 31467684 Lymphocytosis (symptomatic) (D72.820) Active confirmed Problem 37109192 Age-related osteoporosis without current pathological fracture (M81.0) Active confirmed Problem 878613172 Atherosclerotic heart disease of [place] coronary artery without angina pectoris (I25.10) Active confirmed Problem Information temporarily unavailable Thyroid nodule (E04.1) Active confirmed Problem Information temporarily unavailable Neutropenia (D70.9) Active confirmed Problem Information temporarily unavailable Lymphocytosis (D72.820) Active confirmed Problem 62917162 Kidney stone (N20.0) Active confirmed Problem 56724222 Essential hypertension (I10) Active confirmed Problem Information temporarily unavailable Lung nodule (R91.1) Active confirmed Problem 744016292 Irregular heart beat (I49.9) Active confirmed Problem 283588499 History of hemat uria (Z87.448) Active confirmed Problem Information temporarily unavailable Graves disease (E05.00) Active confirmed Problem 80717470 Bronchiectasis without complication (J47.9) Active confirmed Problem Information temporarily unavailable Cervical disc disease (M50.90) Active confirmed Problem 251973545 Anemia, unspecif ied type (D64.9) Active confirmed Problem 351780398 Abnormal mammogr am (R92.8) Active confirmed Problem 387666658 Iron deficiency anemia due to chronic blood loss (D50.0) Active confirmed Problem 010601990 Renal cyst (N28.1) Active confirmed Problem 19737471 Atherosclerosis (I70.90) Active confirmed Problem 142510483 Pulmonary nodule (R91.1) Active confirmed Problem 746640039 Pure hypercholesterolemia , unspecified (E78.00) Active confirmed Problem Information temporarily unavailable Hypercholesteremia (E78.00) Active confirmed Problem 12797976 Hydronephrosis w ith urinary obstruction due to renal calculus (N13.2) Active confirmed Problem 75722004 Extrasystole (I49.49) Active confirmed Problem 95451339 Hearing loss, unspecified hearing loss type, unspecified laterality (H91.90) Active confirmed Problem 10583551800397463 Abnormal chest CT (R93.89) Active confirmed Problem 038453723 Bronchiectasis w ith acute exacerbation (J47.1) Active confirmed Problem 240273015 Irregularly irregular pulse rhythm (I49.9) Active confirmed Vital Signs Blood pressure diastolic 60 mm Hg 09/24/2025 roberto ght is down 4 pounds since 09-01-25 Height 66 in 09/24/2025 weight is down 4 pounds since 09-01-25 Blood pressure systolic 138 mm Hg 09/24/2025 weig ht is down 4 pounds since 09-01-25 Weight 139 lbs 09/24/2025 weight is down 4 pounds since 09-01-25 BMI 22.43 kg/m2 09/24/2025 weight is down 4 pounds since 09-01-25 Encounters Encounter Location Date Provider Diagnosis William Najera MD [address] [place] [id number] 11/14/2024 William Najera Lymphocytosis D72.82 0 and Hypercholesteremia E78.00 William Najera MD [address] [place] [id number] 05/26/2025 William Najera Hypercholesteremia E 78.00 William Najera MD [address] [place] [address] [id number] 08/06/2025 William Najera Encounter for administration of vaccine Z23 William Najera MD [address] [place] [address] [id number] 09/24/2025 William Najera C. difficile diarrhe a A04.72 William Najera MD [address] [place] [address] [id number] 11/14/2024 William Najera Pulmonary nodule R91 .1 ; Graves disease E05.00 ; Lymphocytosis (symptomatic) D72.820 and Pure hypercholesterolemia, unspecified E78.00 William Najera MD [address] [place] [id number] 05/01/2025 William Najera Rectal bleeding K62. 5 William Najera MD [address] [place] [address] [id number] 06/02/2025 William Najera Essential hypertensi on I10 ; Bronchiectasis without complication J47.9 ; Iron deficiency anemia due to chronic blood loss D50.0 ; Hypercholesteremia E78.00 and Depression screening Z13.31 William Najera MD [address] [place] [address] [id number] 08/06/2025 William Najera Coronary artery arteriosclerosis I25.10 William Najera MD [address] [place] [address] [id number] 08/25/2025 William Najera Cervical disc diseas e M50.90 William Najera MD [address] [place] [address] [id number] 09/01/2025 William Najera Cervical disc diseas e M50.90 William Najera MD [address] [place] [address] [id number] 10/21/2024 William Najera MD [address] [place] [address] [id number] 04/21/2025 William Najera MD [address] [place] [address] [id number] 05/07/2025 William Najera MD [address] [place] [id number] 09/04/2025 William Najera Cervical disc diseas e M50.90 William Najera MD [address] [place] [address] [id number] 09/25/2025 William Najera Assessments Encounter Date Diagnosis (ICD Code) Assessment Notes Treatment Notes Treatment Clinical Notes Section Notes 11/14/2024 Lymphocytosis (ICD-1 0 - D72.820) 11/14/2024 Hypercholesteremia (ICD-10 - E78.00) 05/26/2025 Hypercholesteremia (ICD-10 - E78.00) 08/06/2025 Encounter for administration of vaccine (ICD-10 - Z23) 09/24/2025 C. 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/ order put in future folder 11/14/2024 Graves disease (ICD-10 - E05.00) is considering getting thyroid removed 05/01/2025 Rectal bleeding (ICD-10 - K62.5) should follow up wih dr gant next week possible a diverticula bleed 06/02/2025 Essential hypertension (ICD-10 - I10) well controlled 06/02/2025 Bronchiectasis without complication (ICD-10 - J47.9) no problems at present time, will continue to monitor 08/06/2025 Coronary artery arteriosclerosis (ICD-10 - I25.10) discussed findings of Ct scan with patient, has already had a stress test and echo so no need to study her cardiac ct 08/25/2025 Cervical disc diseas e (ICD-10 - M50.90) patientverbalized understanding of medication and directions for use 09/01/2025 Cervical disc diseas e (ICD-10 - M50.90) has improved but will observe/ has not been using the ibuprofen as she though it was a pain med. have explained that is an antiimflammatory and may make her better and try it twice a day as it caused sweilling in her feel. has some neuropathy and it it doesn't keep getting better will need an mri 09/04/2025 Cervical disc diseas e (ICD-10 - M50.90) 11/14/2024 Lymphocytosis (symptomatic) (ICD-10 - D72.820) 06/02/2025 Iron deficiency anemia due to chronic blood [...] 05/14/2025 Next Appt Details Provider Name:William lama, 11/30/2025 08:00:00 AM, [address] [place] [address], [address] [place] [address], [id number], Provider Name:William lama, 12/03/2025 10:45:00 AM, [address] [place] [address], Suite [facility], [place], [place], [phone], Provider Name:William lama, 05/27/2026 08:00:00 AM, [address] [place] [address], Suite [facility], [place], [place], [phone], Provider Name:William lama, 06/03/2026 11:00:00 AM, [address] [place] [address], [address] [place] [address], [id number], Insurance Providers Payer Name Payer Address Payer Phone Subscriber Number Group Number Insured Name Patient Relationship to Insured Coverage Start Date Coverage End Date [employer] [address] [place] [address] [id number] Marielle Valdivia Self - patient is the insured [facility] [address] [address] [place] [address] [id number] Marielle Valdivia Self - patient is the insured Medical (General) History Medical History History ICD Code bone density - 11/2008; 11/2017 colonoscopy - 12/2004 dr whitt as; 08/2013 (repeat 2022)01/25/23 Colonoscopy pending path LUNG NODULE NEEDS REPEAT CT JANUARY 2014 r epeat in 2013 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
--- OUTSIDE RECORDS SUMMARY | 2025-10-03 10:34 | XMS_ITS | Patient Health Record ---
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 Name Role Phone William Najera MD Primary Care Provider Vilma Daugherty Unavailable [phone] Allergies Allergen (clinical drug ingredient) Drug/Non Drug Allergy documented on EMR Reaction Allergy Type Onset Date Status Information temporarily unavailable Strong Antibiotics (uncoded) Unknown Allergy Active Information temporarily unavailable Adhesive Unknown Allergy Active Reason For Referral [...] Status Risk Notes Problem Information temporarily unavailable Plantar wart (B07.0) Active confirmed Vital Signs Blood pressure diastolic 60 mm Hg 02/19/2025 Height 5 ft 4inch in 02/19/2025 Blood pressure systolic 130 mm Hg 02/19/2025 Weight 135 lbs 02/19/2025 BMI 23.17 kg/m2 02/19/2025 Encounters Encounter Location Date Provider Diagnosis [address] [id number] 02/19/2025 Vilma Hussein Right foot pain M79.671 and Plantar wart B07.[address] [facility] [address] 01/07/2025 Vilma Jovita Assessments Encounter Date Diagnosis [...] [employer] [address] [place] [address] [id number] Marielle Valdivia Self - patient is the insured 1 [facility] Medicare-309 95 [address] [address] [place] [address] [id number] Marielle Valdivia Self - patient is the insured Medical (General) History Medical History History ICD Code Anemia Back,Hip,and Knee pain Arthritis Lung disease Osteoporosis Reflux ( GERD) Measles Chicken pox Joint implants/screws Transfusions Cataracts Surgical History Surgery Date(Month/Year) [facility] Left hip 2011 [facility] Right hip 2013
[2025-10-03 12:05] LABS: CDiff Gene PCR NEGATIVE (Negative)
== END 2025-10-03 10:30 | disposition home or self-care (01) ==
LOC: HO.LNP 10:29
PROVIDERS: Visit Provider Internal Medicine
DX: D64.9 Anemia, unspecified (principal); R19.7 Diarrhea, unspecified
CPT/HCPCS: 87493